=== PATIENT | male | born 1950 | race Caucasian/White ===

== ENCOUNTER 2024-06-20 10:16 | Emergency (ER) | payer MEDICARE, SELFPAY ==
[2024-06-20 10:54] VITALS: BP 158/84; PULSE 79; RESP 18; TEMP 37; O2SAT 98; BMI 20.1
[2024-06-20 13:55] LABS: Bilirubin Urine Negative (Negative); Blood Urine 2+ (Negative); Glucose Urine UA Negative (Normal); Ketones Urine Negative (Negative); Leukocyte Esterase Urine 3+ (Negative); Nitrate Urine Positive (Negative); Protein Urine 1+ (Negative); Urine Appearance Turbid (CLEAR); Urine Color Yellow (Yellow)
[2024-06-20 13:57] LABS: Add Urine Microscopic? YES; Bacteria Urine 4+ /hpf; Hyaline Casts Urine 2.46 /lpf; Squamous Epithelial Cell Urine 0-5 /hpf (0-5); WBC Urine >100 /hpf (0-5)
[2024-06-20 14:04] VITALS: BP 118/64; PULSE 94; RESP 18; O2SAT 94
[2024-06-20 14:04] LABS: Add Urine Culture? Yes
--- NOTE | 2024-06-20 14:16 | W.ED.MALEGU ---
HPI - Male Genitourinary General: Chief complaint: Urogenital-Male Stated complaint: unable to pee Time Seen by Provider: 06/20/24 11:33 History of Present Illness: This patient is a 74-year-old white male brought in by his family. Patient has not been able to void for the past 2 days. He does have a Lin catheter in place. Evidently is not working. Family states that he has been drinking plenty of water. He has been pulling on the catheter which did cause some bleeding. Related Data Home Medications Medication Instructions Recorded Confirmed albuterol sulfate 90 mcg/actuation 90 mcg inhalation DAILY 06/20/24 06/20/24 aerosol inhaler aspirin 81 mg tablet,delayed 81 mg PO DAILY 06/20/24 06/20/24 release (Neyda Low Dose Aspirin) diphenhydramine HCl 25 mg tablet 25 mg PO TID PRN sleep 06/20/24 06/20/24 (Benadryl Allergy) linaclotide 290 mcg capsule 290 mcg PO DAILY 06/20/24 06/20/24 (Linzess) olanzapine 2.5 mg tablet 2.5 mg PO DAILY 06/20/24 06/20/24 tamsulosin 0.4 mg capsule 0.4 mg PO DAILY 06/20/24 06/20/24 Previous Rx's Medication Instructions Recorded cefdinir 300 mg capsule 300 mg PO Q12H 10 days #20 caps 06/20/24 Allergies Allergy/AdvReac Type Severity Reaction Status Date / Time No Known Allergies Allergy Verified 06/20/24 10:58 Review of Systems General: Reports: 10 or more systems reviewed and unremarkable except in HPI and below : Reports: difficulty urinating Physical Exam Const: COMMON NORMALS: no acute distress, patient oriented x3 and no limitations GENERAL APPEARANCE: cooperative and comfortable HENMT: COMMON NORMALS: normocephalic, atraumatic, Normal nasal mucous membranes and turbinates present, moist oral mucous membranes and oropharynx normal HEAD & SCALP: normal to inspection, normocephalic and atraumatic FACE & SINUS: normal facial exam NOSE: Normal nasal mucous membranes and turbinates present Eye: COMMON NORMALS: Equal, round and reactive pupils present, EOMs intact bilaterally and conjunctivae normal GENERAL EYE: appearance normal, both eyes and all related structures CONJUNCTIVA: Yes conjunctivae normal PUPIL: Yes Equal, round and reactive pupils present Neck/C-Spine: COMMON NORMALS: supple and no JVD Chest: COMMONS NORMALS: normal inspection of the chest Resp: COMMON NORMALS: normal respiratory effort and clear to auscultation bilaterally AUSCULTATION: clear to auscultation bilaterally Cardio: COMMON NORMALS: no JVD, regular rate, regular rhythm, No gallops present (Cardio), No murmurs present (Cardio) and No rub (Cardio) RATE: regular rate RHYTHM: regular rhythm GI: COMMON NORMALS: Normal to inspection, nondistended, normoactive bowel sounds present, Soft to palpation and non-tender AUSCULTATION: Yes normoactive bowel sounds PALPATION: Yes Soft to palpation : COMMON NORMALS: Yes no CVA tenderness BLADDER/KIDNEY EXAM: Yes no CVA tenderness Back/Pelvis: COMMON NORMALS: no CVA tenderness and thoracic and lumbar spine normal to inspection Extremity: COMMON NORMALS: normal to inspection Neuro: COMMON NORMALS: patient oriented x3 and CN's II-XII intact bilaterally Psych: COMMON NORMALS: mental status grossly normal, Normal thought process present and cooperative THOUGHT PROCESS: Normal thought process present Skin: COMMON NORMALS: no rashes or lesions noted, turgor normal and no jaundice GENERAL SKIN EXAM: no rashes or lesions noted and turgor normal Course Vital Signs: Vital signs: Vital Signs Temperature 98.6 F 06/20/24 10:54 Pulse Rate 94 06/20/24 14:04 Respiratory Rate 18 06/20/24 14:04 Blood Pressure 118/64 06/20/24 14:04 Pulse Oximetry 94 06/20/24 14:04 Oxygen Delivery Me thod Room Air 06/20/24 14:04 MDM - Male Medical Decision Making Bladder scan revealed over 1000 cc of urine in the bladder. I did have the nurse adjust the Lin catheter. She deflated the balloon and then reposition the catheter and reinflated the balloon. It is working fine now. She had also removed a small blood clot from the tip of the catheter. Urinalysis is consistent with urinary tract infection. Patient was placed on cefdinir. He was given 1 dose of cefuroxime in the emergency department. Recommended follow-up with primary care provider after completing the antibiotics for recheck. He was discharged in stable condition. Lab Data Laboratory Results Urine Color Yellow (Yellow) 06/20/24 13:41 Urine Appearance Turbid (CLEAR) A 06/20/24 13:41 Urine pH 6.0 (5-7) 06/20/24 13:41 Ur Specific [place] 1.010 (1.005-1.030) 06/20/24 13:41 Urine Protein 1+ (Negative) A 06/20/24 13:41 Urine Glucose (UA) Negative (Normal) 06/20/24 13:41 Urine Ketones Negative (Negative) 06/20/24 13:41 Urine Blood 2+ (Negative) A 06/20/24 13:41 Urine Nitrate Positive (Negative) A 06/20/24 13:41 Urine Bilirubin Negative (Negative) 06/20/24 13:41 Urine Urobilinogen 1.0 mg/dL (Negative) 06/20/24 13:41 Ur Leukocyte Esterase 3+ (Negative) A 06/20/24 13:41 Urine RBC 6-10 /hpf (0-2) 06/20/24 13:41 Urine WBC >100 /hpf (0-5) H 06/20/24 13:41 Ur Squamous Epith Cells 0-5 /hpf (0-5) 06/20/24 13:41 Amorphous Sediment Not Reportable 06/20/24 13:41 Urine Bacteria 4+ /hpf (NONE) H 06/20/24 13:41 Hyaline Casts 2.46 /lpf 06/20/24 13:41 No radiology studies performed this visit Discharge Plan Discharge Patient Disposition: Home Clinical Impression: Acute urinary retention Urinary tract infection Qualifiers: Urinary tract infection type: acute cystitis Hematuria presence: with hematuria Qualified Code(s): N30.01 - Acute cystitis with hematuria Condition: Stable Prescriptions: New cefdinir 300 mg capsule 300 mg PO Q12H 10 Days Qty: 20 0RF No Action olanzapine 2.5 mg tablet 2.5 mg PO DAILY tamsulosin 0.4 mg capsule 0.4 mg PO DAILY albuterol sulfate 90 mcg/actuation HFA aerosol inhaler 90 mcg INHALATION DAILY Linzess 290 mcg capsule 290 mcg PO DAILY aspirin [Neyda Low Dose Aspirin] 81 mg Tablet,Delayed Release (Dr/Ec) 81 mg PO DAILY diphenhydramine HCl [Benadryl Allergy] 25 mg Tablet 25 mg PO TID PRN (Reason: sleep ) Discharge Orders: Discharge ED (Routine); Ordered 06/20/24 Ordered By: Pop Portillo Patient Instructions: Urinary Tract Infection in Men (ED) Activity Restrictions/Additional Instructions: Follow-up with primary care provider after finishing the antibiotic course for recheck. Coding Level of Care Code ED Development Consultant for [employer]
[2024-06-20] MEDS: cefUROXime 250 mg Tablet 500 MG PO (14:32)
[2024-06-20 14:48] VITALS: BP 140/107; PULSE 93; RESP 16; O2SAT 96
--- NOTE | 2024-06-20 14:50 | PC.NURSE ---
replaced pts gillis leg bag d/t the straps being broke.
== END 2024-06-20 14:46 | disposition home or self-care (01) ==
PROVIDERS: Emergency Provider Emergency Medicine
DX: N30.01 Acute cystitis with hematuria (principal); Z79.82 Long term (current) use of aspirin
CPT/HCPCS: 51798; 81001; 87077; 87086; 87186; 99283

== ENCOUNTER 2024-07-02 14:24 | Observation (INO) | payer MEDICARE, MEDICAID, SELFPAY ==
[2024-07-02] VITALS (10 sets, daily range): BP systolic 105–171; BP diastolic 60–86; PULSE 67–88; RESP 17–19; TEMP 36.7–37.1; O2SAT 96–99; BMI 21.8
--- NOTE | 2024-07-02 14:39 | PC.NURSE ---
NURSE ASSESSED PATIENT FROM WAITING ROOM. PATIENT NEURO CHECKS NORMAL. PATIENT [employer] EQUAL AND HAS ABILITY TO MOVE ALL EXTREMITIES AGAINST GRAVITY. FAMILY STATES PATIENT HAS BEEN GETTING WORSE OVER THE LAST SEVERAL DAYS, YESTERDAY BEING THE WORST, AND LKW WAS YESTERDAY, IF NOT BEFORE.
--- NOTE | 2024-07-02 15:57 | CTR_ITS ---
PROCEDURE INFORMATION: Exam: CT Head Without Contrast Exam date and time: 07/02/2024 4:32 PM Age: 74 years old Clinical indication: Dizziness and walking, difficulty; Additional info: Multiple falls, balance issues TECHNIQUE: Imaging protocol: Computed tomography of the head without contrast. Radiation optimization: All CT scans at this facility use at least one of these dose optimization techniques: automated exposure control; mA and/or kV adjustment per patient size (includes targeted exams where dose is matched to clinical indication); or iterative reconstruction. COMPARISON: No relevant prior studies available. RADIATION DOSE METRICS: Total DLP (mGy-cm): 878.75 FINDINGS: Brain: Normal. No hemorrhage. Unremarkable white matter. No mass effect or acute infarct. Cerebral ventricles: No ventriculomegaly. No midline shift. Paranasal sinuses: Visualized sinuses are unremarkable. No fluid levels. Mastoid air cells: Visualized mastoid air cells are well aerated. Bones: Unremarkable. No acute fracture. Soft tissues: Unremarkable. CT/CT head wo con* [id number] IMPRESSION: No acute intracranial abnormality.
--- NOTE | 2024-07-02 15:57 | XRR_ITS ---
PROCEDURE INFORMATION: Exam: XR Chest Exam date and time: 07/02/2024 4:37 PM Age: 74 years old Clinical indication: Shortness of breath; Additional info: Weakness TECHNIQUE: Imaging protocol: Radiologic exam of the chest. Views: 1 view. COMPARISON: No relevant prior studies available. FINDINGS: Lungs: Unremarkable. No consolidation or mass. Pleural spaces: Unremarkable. No pleural effusion. No pneumothorax. Heart/Mediastinum: Unremarkable. No cardiomegaly. Bones/joints: Unremarkable. XR/XR chest 1V portable [id number] IMPRESSION: No acute findings.
--- NOTE | 2024-07-02 15:58 | ED_ITS ---
HPI - Altered Mental Status 2 General: Chief Complaint: Altered Mental Status Stated Complaint: stroke like symptoms (dr. rucker) Time Seen by Provider: 07/02/24 15:49 History of Present Illness: 74-year-old man with suspected dementia and only other real medical problems is recently diagnosed BPH with urinary retention and now with a chronic indwelling Lin catheter for the last few weeks. Family brings him in at the direction of their primary physician to possibly be admitted to a shelter. He has been having falls. They say he will start almost running backwards and fall backwards. No known history of Parkinson's or anything like this. They say he is also started wandering. They will have to go look at neighbors homes. [place] He seems more acutely confused over the last couple of weeks. Apparently he has been admitted to [facility] twice in the last couple of months for as many as 8 or 9 days at 1 point. This was when he was diagnosed with renal failure and urinary retention. His brother is a family that is with him here today. He says the last fall he actually caught him before he went down. They are concerned that he may hurt himself or wander off. He said nighttime is when he tries to wander. Related Data Home Medications Medication Instructions Recorded Confirmed albuterol sulfate 90 mcg/actuation 90 mcg inhalation DAILY 06/20/24 07/02/24 aerosol inhaler aspirin 81 mg tablet,delayed 81 mg PO DAILY 06/20/24 07/02/24 release (Neyda Low Dose Aspirin) diphenhydramine HCl 25 mg tablet 25 mg PO TID PRN sleep 06/20/24 07/02/24 (Benadryl Allergy) linaclotide 290 mcg capsule 290 mcg PO DAILY 06/20/24 07/02/24 (Linzess) olanzapine 2.5 mg tablet 2.5 mg PO DAILY 06/20/24 07/02/24 tamsulosin 0.4 mg capsule 0.4 mg PO DAILY 06/20/24 07/02/24 levofloxacin 500 mg tablet 500 mg PO DAILY 07/02/24 07/02/24 melatonin 3 mg tablet 3 mg PO DAILY 07/02/24 07/02/24 timolol maleate 0.5 % eye drops 1 drp ophthalmic (eye) DAILY 07/02/24 07/02/24 Allergies Allergy/AdvReac Type Severity Reaction Status Date / Time No Known Allergies Allergy Verified 06/20/24 10:58 Review of Systems 2 Narrative: Constitutional symptoms: Negative except as documented in HPI. Skin symptoms: Negative except as documented in HPI. Eye symptoms: Negative except as documented in HPI. ENMT symptoms: Negative except as documented in HPI. Respiratory symptoms: Negative except as documented in HPI. Cardiovascular symptoms: Negative except as documented in HPI. Gastrointestinal symptoms: Negative except as documented in HPI. Genitourinary symptoms: Negative except as documented in HPI. Musculoskeletal symptoms: Negative except as documented in HPI. Neurologic symptoms: Negative except as documented in HPI. Psychiatric symptoms: Negative except as documented in HPI. Endocrine symptoms: Negative except as documented in HPI. Physical Exam 2 Narrative: General: Alert, no acute distress. Skin: Warm, dry. Head: Normocephalic, atraumatic. Neck: Supple, trachea midline. Eye: Extraocular movements are intact. Ears, nose, mouth and throat: mucosa moist. Cardiovascular: Regular, Normal peripheral perfusion. Respiratory: Lungs are clear to auscultation, respirations are non-labored, breath sounds are equal, Symmetrical chest wall expansion. Gastrointestinal: Soft, Nontender, Non distended Musculoskeletal: Normal ROM, no deformity. Neurological: Alert and oriented, No focal neurological deficit observed. Psychiatric: Cooperative, patient is pretty hard of hearing but does seem a little confused at times. Course 2 Vital Signs: Vital signs: Vital Signs Temperature 98.8 F 07/02/24 14:52 Pulse Rate 88 07/02/24 19:30 Respiratory Rate 18 07/02/24 15:53 Blood Pressure 159/83 07/02/24 19:30 Pulse Oximetry 99 07/02/24 18:00 Oxygen Delivery Me thod Room Air 07/02/24 18:00 MDM - Altered Mental Status Medical Decision Making Medical decision making: Differential diagnosis including but not limited to and based on the above HPI, review of systems and physical exam: In this patient with altered mental status: Stroke. Hypoglycemia. Metabolic encephalopathy. Infections such as pneumonia, urinary tract infection, Covid-19, Influenza. Electrolyte abnormalities such as hypernatremia. Renal failure / uremia. Hepatic encephalopathy. Hypoxemia. Hypercapnic respiratory failure. Psychosis. Drug or alcohol intoxication. Medication overdose. Orders placed to evaluate differential diagnosis based on the above differential, HPI and physical exam EKG: Time 1816. Rate 80. Normal sinus rhythm, No ST-T changes, no ectopy, first degree AV Block, EP Interpretation. This was reviewed and interpreted by myself the ER physician at 1820. CT head: No acute intracranial process. no intracranial hemorrhage, no evidence of infarct. no evidence of acute fracture.This was reviewed and interpreted by myself the ER physician. Chest x-ray: No acute process. No infiltrate. No pneumothorax. This was reviewed and interpreted by myself the emergency room physician. I also reviewed the radiology report. Lab Review: Laboratory results were reviewed and interpreted by myself the emergency room physician. Mild leukocytosis with a white count of 10.6 with 80% left shift. No anemia. BUN and creatinine are elevated at 29 and 1.6. I do not have any previous lab work to compare. Blood pressure is a bit soft so I have some concern that this might be acute. Also 11-20 whites in his urine. Given the worsening of his symptoms acutely maybe have some metabolic encephalopathy secondary to urinary tract infection I reviewed the patient's medical record. I have requested documentation from admission at [facility] Reexamination: Patient remained stable. No increased work of breathing. No altered mental status. No focal motor deficits. Consultation: I spoke with Dr. Yoon who agrees to admission and observation. Assessment and plan: Renal insufficiency Urinary tract infection Urinary retention Metabolic encephalopathy Dementia ?Normal saline bolus and IV Rocephin in the emergency room. Lin being changed -I discussed the patient with the hospitalist on-call who is admitting the patient. - Discussed findings and plan with patient. Answered any questions. - All laboratory values were reviewed and interpreted personally by myself, the ER physician - All imaging was reviewed and interpreted personally by myself, the ER physician. - Evaluation and treatment of this problem were appropriate in the emergency setting Lab Data 07/02/24 16:11 07/02/24 16:11 Radiology Impressions Chest X-Ray 07/02/24 15:57 IMPRESSION: No acute findings. Head CT 07/02/24 15:57 IMPRESSION: No acute intracranial abnormality. Laboratory Results WBC 10.63 10^3/uL (3.29-11.43) 07/02/24 16:11 RBC 4.24 10^6/uL (3.85-5.65) 07/02/24 16:11 Hgb 12.60 g/dL (11.27-16.99) 07/02/24 16:11 Hct 38.6 % (37-53) 07/02/24 16:11 MCV 91.0 fl (82-101) 07/02/24 16:11 MCH 29.7 pg (27-33) 07/02/24 16:11 MCHC 32.6 g/dL (30-55) 07/02/24 16:11 RDW 13.3 % (12.1-15.1) 07/02/24 16:11 Plt Count 289 10^3/cmm (157-399) 07/02/24 16:11 MPV 9.1 fL (7.4-10.4) 07/02/24 16:11 Neut % (Auto) 80.9 % 07/02/24 16:11 Lymph % (Auto) 10.9 % 07/02/24 16:11 [place] % (Auto) 7.1 % 07/02/24 16:11 Eos % (Auto) 0.1 % 07/02/24 16:11 Baso % (Auto) 0.2 % 07/02/24 16:11 Neut # (Auto) 8.61 10^3/uL (1.8-7.7) H 07/02/24 16:11 Lymph # (Auto) 1.2 10^3/uL (0.8-4.8) 07/02/24 16:11 [place] # (Auto) 0.8 10^3/uL (0.2-0.9) 07/02/24 16:11 Eos # (Auto) 0.0 10^3/uL (0.0-0.8) 07/02/24 16:11 Baso # (Auto) 0.0 10^3/uL (0.0-0.1) 07/02/24 16:11 Nucleated RBC % (auto) 0 % 07/02/24 16:11 Nucleated RBCs # 0.0 /100WBC 07/02/24 16:11 Specimen Type Arterial 07/02/24 15:58 Sample Site Radial, right 07/02/24 15:58 ABG pH 7.43 (7.35-7.45) 07/02/24 15:58 ABG pCO2 37.2 mmHg (35-45) 07/02/24 15:58 ABG pO2 88.3 mmHg (80.0-100.0) 07/02/24 15:58 ABG PO2/FiO2 Ratio 420 07/02/24 15:58 ABG HCO3 24.6 mmol/L (22-26) 07/02/24 15:58 ABG O2 Saturation 97.5 07/02/24 15:58 ABG Base Excess 0.4 mmol/L (-2.0-2.0) 07/02/24 15:58 [place] Test Pos 07/02/24 15:58 A-a O2 Gradient 1.9 mmHg (5-10) L 07/02/24 15:58 Hematocrit 37.6 % (42-52) L 07/02/24 15:58 Hgb O2 Saturation 95.6 % (95-100) 07/02/24 15:58 Carboxyhemoglobin 1.0 %THgb (0.4-20.1) 07/02/24 15:58 Methemoglobin 0.9 % (0.4-1.5) 07/02/24 15:58 Total Hemoglobin 12.3 g/dL (14-18) L 07/02/24 15:58 Sodium 132.0 mmol/L (131-143) 07/02/24 15:58 Potassium 4.2 mmol/L (3.5-5.0) 07/02/24 15:58 Glucose 113.0 mg/dL (70-115) 07/02/24 15:58 Ionized Calcium 1.2 mmol/L (1.1-1.4) 07/02/24 15:58 O2 Delivery Device Room air 07/02/24 15:58 FiO2 21.0 % 07/02/24 15:58 Food Service Director ID [place] 07/02/24 15:58 Sodium 134 mmol/L (136-145) L 07/02/24 16:11 Potassium 4.8 mmol/L (3.5-5.1) 07/02/24 16:11 Chloride 99 mmol/L (98-107) 07/02/24 16:11 Carbon Dioxide 25 mmol/L (22-29) 07/02/24 16:11 Anion Gap 14.8 (5-19) 07/02/24 16:11 BUN 29 mg/dL (8-23) H 07/02/24 16:11 Creatinine 1.6 mg/dL (0.7-1.2) H 07/02/24 16:11 GFR Calculation Not Reportable 07/02/24 16:11 Glucose 110 mg/dL (65-115) 07/02/24 16:11 Calculated Osmolality 284 mOsm/kg (285-295) L 07/02/24 16:11 Lactic Acid 1.0 mmol/L (0.5-2.2) 07/02/24 16:11 Calcium 9.4 mg/dL (8.5-10.5) 07/02/24 16:11 Total Bilirubin 0.6 mg/dL (0.15-1.2) 07/02/24 16:11 AST 29 U/L (0-40) 07/02/24 16:11 ALT 20 U/L (0-41) 07/02/24 16:11 Alkaline Phosphatase 56 U/L (40-130) 07/02/24 16:11 Troponin T Baseline 47 ng/L (0-15) H 07/02/24 16:11 Troponin T 120 Minute 44.29 ng/L (0-15) H 07/02/24 18:12 Delta Troponin T -2.71 ABS# (0-10) L 07/02/24 18:12 Total Protein 6.2 g/dL (6.6-8.7) L 07/02/24 16:11 Albumin 3.8 g/dL (3.5-5.2) 07/02/24 16:11 Globulin 2.4 g/dL (1.3-4.6) 07/02/24 16:11 Urine Color Yellow (Yellow) 07/02/24 17:48 Urine Appearance Clear (CLEAR) 07/02/24 17:48 Urine pH 5.5 (5-7) 07/02/24 17:48 Ur Specific [place] 1.016 (1.005-1.030) 07/02/24 17:48 Urine Protein Negative (Negative) 07/02/24 17:48 Urine Glucose (UA) Negative (Normal) 07/02/24 17:48 Urine Ketones Negative (Negative) 07/02/24 17:48 Urine Blood Negative (Negative) 07/02/24 17:48 Urine Nitrate Negative (Negative) 07/02/24 17:48 Urine Bilirubin Negative (Negative) 07/02/24 17:48 Urine Urobilinogen 1.0 mg/dL (Negative) 07/02/24 17:48 Ur Leukocyte Esterase 1+ (Negative) A 07/02/24 17:48 Urine RBC 0-2 /hpf (0-2) 07/02/24 17:48 Urine WBC 11-20 /hpf (0-5) H 07/02/24 17:48 Ur Squamous Epith Cells 0-5 /hpf (0-5) 07/02/24 17:48 Urine Bacteria None seen /hpf (NONE) 07/02/24 17:48 Hyaline Casts 2.05 /lpf 07/02/24 17:48 All radiology interpretation(s) finalized by discharge Discharge Plan Discharge Condition: Stable Prescriptions: No Action olanzapine 2.5 mg tablet 2.5 mg PO DAILY tamsulosin 0.4 mg capsule 0.4 mg PO DAILY albuterol sulfate 90 mcg/actuation HFA aerosol inhaler 90 mcg INHALATION DAILY Linzess 290 mcg capsule 290 mcg PO DAILY aspirin [Neyda Low Dose Aspirin] 81 mg Tablet,Delayed Release (Dr/Ec) 81 mg PO DAILY diphenhydramine HCl [Benadryl Allergy] 25 mg Tablet 25 mg PO TID PRN (Reason: sleep ) levofloxacin 500 mg tablet 500 mg PO DAILY timolol maleate 0.5 % drops 1 drp ophthalmic (eye) DAILY melatonin 3 mg Tablet 3 mg PO DAILY Patient Instructions: Altered Mental Status (ED) Coding Level of Care Code ED Director Of Product Design for [employer]
[2024-07-02 16:09] LABS: ABG PCO2 37.2 mmHg (35-45); ABG PH Result 7.43 (7.35-7.45); Alveolar-Arterial Oxygen Gradi 1.9 mmHg (5-10); Arterial Blood Gas Hematocrit 37.6 % (42-52); Base Excess ABG 0.4 mmol/L (-2.0-2.0); Blood Gas Allen Test Pos; Blood Gas Operator Identificat WALCI; Blood Gas Sample Site Radial, right; Blood Gas Sample Type Arterial; HCO3 ABG 24.6 mmol/L (22-26); HGB O2 Sat 95.6 % (95-100); Ionized Calcium Level - ABG 1.2 mmol/L (1.1-1.4); Methemoglobin 0.9 % (0.4-1.5); Oxygen Device ROOM AIR; Oxygen Saturation ABG 97.5; PO2 ABG 88.3 mmHg (80.0-100.0); PO2 FiO2 Ratio Arterial Blood 420; Potassium Level - ABG 4.2 mmol/L (3.5-5.0); Total Hemoglobin 12.3 g/dL (14-18)
[2024-07-02 16:24] LABS: Basophils % 0.2 %; Eosinophils % 0.1 %; Hematocrit 38.6 % (37-53); Lymphocytes # 1.2 10^3/uL (0.8-4.8); Lymphocytes % 10.9 %; Mean Corpuscular HGB Conc 32.6 g/dL (30-55); Mean Corpuscular Hemoglobin 29.7 pg (27-33); Mean Platelet Volume 9.1 fL (7.4-10.4); Monocytes # 0.8 10^3/uL (0.2-0.9); Monocytes % 7.1 %; Neutrophils # 8.61 10^3/uL (1.8-7.7); Neutrophils % 80.9 %; Nucleated Red Blood Cells % 0 %; Platelet Count 289 10^3/cmm (157-399); Red Blood Count 4.24 10^6/uL (3.85-5.65); Red Cell Distribution Width 13.3 % (12.1-15.1); White Blood Count 10.63 10^3/uL (3.29-11.43)
--- NOTE | 2024-07-02 16:27 | ECG_ITS ---
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 Measurements Intervals [place] Rate: 77 P: 86 [place]: 210 QRS: 54 QRSD: 142 T: 144 QT: 419 QTc: 476 Interpretive Statements SINUS RHYTHM WITH FIRST DEGREE AV BLOCK POSSIBLE LEFT ATRIAL ENLARGEMENT [-0.1mV P-WAVE IN V1/V2] INTRAVENTRICULAR CONDUCTION DELAY [130+ ms QRS DURATION] No previous ECG available for comparison Electronically Signed On 07-03-2024 10:21:49 AUDIO PRODUCTION MANAGER by Trevor Hall M.D. [email or web address]
[2024-07-02 16:43] LABS: Troponin(5th) Baseline 47 ng/L (0-15)
[2024-07-02 16:44] LABS: Alanine Aminotransferase 20 U/L (0-41); Albumin Level 3.8 g/dL (3.5-5.2); Alkaline Phosphatase 56 U/L (40-130); Anion Gap 14.8 (5-19); Aspartate Amino Transferase 29 U/L (0-40); Blood Urea Nitrogen 29 mg/dL (8-23); Calcium 9.4 mg/dL (8.5-10.5); Carbon Dioxide 25 mmol/L (22-29); Chloride 99 mmol/L (98-107); Creatinine Clr Calc Pharmacy 44.5358; Globulin 2.4 g/dL (1.3-4.6); Glucose 110 mg/dL (65-115); Osmolality Calculated 284 mOsm/kg (285-295); Potassium 4.8 mmol/L (3.5-5.1); Sodium 134 mmol/L (136-145); Total Bilirubin 0.6 mg/dL (0.15-1.2); Total Protein 6.2 g/dL (6.6-8.7)
--- NOTE | 2024-07-02 17:57 | ECG_ITS ---
[facility]: 2024-07[facility]02 Pat Name: Monty Hayden Department: Room: Gender: Male Director Revenue: : 1950 Requested By: Valentina Coker Order Number: [id number] Elliott MD: Trevor Hall M.D. Measurements Intervals [place] Rate: 80 P: 79 [place]: 211 QRS: 58 QRSD: 142 T: 184 QT: 428 QTc: 495 Interpretive Statements SINUS RHYTHM WITH FIRST DEGREE AV BLOCK POSSIBLE RIGHT ATRIAL ENLARGEMENT [0.25mV P-WAVE] POSSIBLE LEFT ATRIAL ENLARGEMENT [-0.1mV P-WAVE IN V1/V2] INTRAVENTRICULAR CONDUCTION DELAY [130+ ms QRS DURATION] Compared to ECG 07/02/2024 16:27:05 No significant changes Electronically Signed On 07-03-2024 10:33:37 STOCK SHAPER by Trevor Hall M.D. [email or web address]
[2024-07-02 18:08] LABS: Bilirubin Urine Negative (Negative); Blood Urine Negative (Negative); Glucose Urine UA Negative (Normal); Ketones Urine Negative (Negative); Leukocyte Esterase Urine 1+ (Negative); Nitrate Urine Negative (Negative); Protein Urine Negative (Negative); Specific Gravity, Urine 1.016 (1.005-1.030); Urine Appearance Clear (CLEAR); Urine Color Yellow (Yellow); pH Urine 5.5 (5-7)
[2024-07-02 18:13] LABS: Bacteria Urine None Seen /hpf; Hyaline Casts Urine 2.05 /lpf; RBC Urine 0-2 /hpf (0-2); Squamous Epithelial Cell Urine 0-5 /hpf (0-5)
[2024-07-02 18:37] LABS: Troponin 5 2HR 44.29 ng/L (0-15); Troponin 5 2HR Delta -2.71 ABS# (0-10)
--- NOTE | 2024-07-02 19:14 | P.HP_ITS ---
Providers/Chief Complaint 2 Chief Complaint: stroke like symptoms (dr. rucker) History of Present Illness Monty Hayden is a 74 year old male with a past medical history significant for small bowel cancer s/p resection, suspect dementia, urinary retention, and eye disease who presents the emergency department accompanied with family with recurrent falls and inability to care for self. Upon assessment, patient slightly lethargic. He arouses to stimulation but does not offer any pertinent history. His brother is bedside and provides a history. Brother states patient was just recently living alone. He had a hospitalization at [facility] several weeks ago for which she says was for problems with sodium and potassium. He states he was hospitalized for 7 days. He was found to have urinary retention for which she was discharged with a Lin catheter. After discharge, patient stayed with his brother at his home. Family notes that patient's been suffering from progressively worsening confusion. They note that the symptoms are much worse at night. They states that he started to wander and they are having difficulty controlling them. They report he gets agitated with the Lin catheter and intermittently pulls on it which has produced transient hematuria at times. They suspect he has underlying dementia. They report a positive family history of dementia, Alzheimer's type. Brother is not sure of most of his medical issues but states he [facility] and they should have all his medical records. We discussed his resuscitation status, they note that he is DNR. Review of Systems 2 Narrative: A complete review of systems was obtained and is negative except as stated in HPI. Medications/Allergies Home Medications Medication Instructions Recorded Confirmed Last Taken Type albuterol sulfate 90 mcg/actuation 90 mcg inhalation DAILY 06/20/24 07/02/24 Unknown History aerosol inhaler aspirin 81 mg tablet,delayed 81 mg PO DAILY 06/20/24 07/02/24 07/01/24 History release (Neyda Low Dose Aspirin) diphenhydramine HCl 25 mg tablet 25 mg PO TID PRN sleep 06/20/24 07/02/24 07/01/24 History (Benadryl Allergy) linaclotide 290 mcg capsule 290 mcg PO DAILY 06/20/24 07/02/24 07/01/24 History (Linzess) olanzapine 2.5 mg tablet 2.5 mg PO DAILY 06/20/24 07/02/24 06/30/24 History tamsulosin 0.4 mg capsule 0.4 mg PO DAILY 06/20/24 07/02/24 07/02/24 History levofloxacin 500 mg tablet 500 mg PO DAILY 07/02/24 07/02/24 07/01/24 History melatonin 3 mg tablet 3 mg PO DAILY 07/02/24 07/02/24 07/01/24 History timolol maleate 0.5 % eye drops 1 drp ophthalmic (eye) DAILY 07/02/24 07/02/24 07/01/24 History Allergies Allergy/AdvReac Type Severity Reaction Status Date / Time No Known Allergies Allergy Verified 06/20/24 10:58 PFSH Acute 2 PFSH: Medical History Small bowel cancer Surgical History History of intestinal surgery Family History Sister Alzheimer's dementia Social History Smoking and tobacco/nicotine status: never used tobacco/nicotine Alcohol intake: never Substance/Drug Use: never Vitals/I&O/Wt Last Vital Signs Temp 98.8 F 07/02/24 14:52 Pulse 81 07/02/24 18:00 Resp 18 07/02/24 15:53 BP 171/86 07/02/24 18:00 Pulse Ox 99 07/02/24 18:00 O2 Del Method Room Air 07/02/24 18:00 Weight last 48 hrs Weight 77.111 kg Physical Exam 2 Narrative: General: Patient is lethargic. He will arouse to name. Not oriented to situation or place. Frail-appearing. Head: Atraumatic. EOM intact. Neck: No JVD. Cardiovascular: RRR. No gallops. Lungs: Clear to auscultation, no use of accessory muscles, no crackles or wheezes. Skin: No jaundice. No rashes. Abdomen: Normal bowel sounds, abdomen soft and nontender. Genito Urinary: Lin catheter with garrett urine. Extremities: No cyanosis or clubbing. Musculoskeletal: No swollen or erythematous joints. Neurological: There is movement of all 4 extremities. Full neurological exam was not conducted due to mentation. He seems to guard his left upper extremity on exam. He seems to have diffusely reduced range of motion in his left upper extremity. Data 07/02/24 16:11 07/02/24 16:11 Micro: Microbiology 07/02/24 16:15 Blood Culture - Preliminary Blood SPECIMEN COLLECTED 07/02/24 16:11 Blood Culture - Preliminary Blood SPECIMEN COLLECTED A&P Assessment and plan (1) Failure to thrive: Patient presents with failure to thrive in adult Probably will need placement PT/OT evaluation CM consult Medical history is still limited, request outside records from [facility] (2) Fall: Head CT negative for acute findings Fall precautions Neuroexam is limited due to mental status He may have deficits in the left upper extremity, will proceed with cervical neck CT and plain films of left upper extremity given he cannot provide pertinent feedback (3) Rigidity: He is noted to be quite rigid on exam, question underlying possible parkinsonian His movements can be further evaluated when he is more awake over the weekend Depending on clinical course and assessment, he may benefit from a neurology evaluation (4) UTI (urinary tract infection): Ux (06/20) w/ Enterobacter Urinalysis has improved Rotate to IV levofloxacin 500 mg for now (5) Acute urinary retention: Continue Lin catheter Continue Flomax (6) Renal insufficiency: Unknown renal baseline S/P 1 L IVF in ED Repeat labs in AM Plan DVT ppx: Heparin Attestations 2 Medical Necessity Statement*: Patient presents with diffuse weakness and recurrent falls, found to have failure to thrive in adult with expected hospitalization not to cross two midnights for supportive care, antibiotics, repeat labs, and therapy evaluation. Coding Level of Care Code Acute Code for Chg Fwd Diagnoses Failure to thrive Fall W19.XXXA Rigidity R29.898 UTI (urinary tract infection) N39.0 Acute urinary retention R33.8 Renal insufficiency N28.9
[2024-07-02] MEDS: cefTRIAXone 1,000 mg SDV 1000 MG IVP (19:28)
[2024-07-02] MEDS: sodium chloride 0.9% 1,000 ML 999 ML IV (19:29)
[2024-07-02] MEDS: levofloxacin-dextrose 5 % 750 MG/150 ML PREMIX 100 MG IV (21:23)
[2024-07-02] MEDS: heparin 5,000 unit/mL INJ 1 mL 5000 UNIT SUBCUT (21:24)
--- NOTE | 2024-07-02 21:57 | ECG_ITS ---
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 Measurements Intervals Dawson Rate: 76 P: 84 [place]: 208 QRS: 63 QRSD: 142 T: 231 QT: 426 QTc: 480 Interpretive Statements SINUS RHYTHM LEFT BUNDLE BRANCH BLOCK [120+ ms QRS DURATION, 80+ ms Q/S IN V1/V2, 85+ ms R IN I/aVL/V5/V6] Compared to ECG 07/02/2024 18:17:20 Left bundle-branch block now present First degree AV block no longer present Intraventricular conduction delay no longer present Electronically Signed On 07-03-2024 10:32:20 BRAND MGR by Trevor Hall M.D. [email or web address]
[2024-07-02 22:01] LABS: Thyroid Stimulating Hormone 2.03 uIU/mL (0.27-4.20); Vitamin B12 581 pg/mL (232-1245)
--- NOTE | 2024-07-02 22:03 | CTR_ITS ---
PROCEDURE INFORMATION: Exam: CT Cervical Spine With Contrast Exam date and time: 07/02/2024 11:51 PM Age: 74 years old Clinical indication: Patient HX: Neck pain; Lt upper ext pain/limited rom after multiple falls TECHNIQUE: Imaging protocol: Computed tomography of the cervical spine with contrast. Radiation optimization: All CT scans at this facility use at least one of these dose optimization techniques: automated exposure control; mA and/or kV adjustment per patient size (includes targeted exams where dose is matched to clinical indication); or iterative reconstruction. Contrast material: [id number]; Contrast volume: 80 ml; Contrast route: INTRAVENOUS (IV); COMPARISON: CT head wo con* [id number] 07/02/2024 4:32 PM RADIATION DOSE METRICS: Total DLP (mGy-cm): 152.57 FINDINGS: Bones: No acute fracture. Normal alignment. No significant disc bulge or herniation. No severe spinal canal stenosis. No significant neural foraminal narrowing. Lungs: Lung apices are normal. Soft tissues: Unremarkable. CT/CT cervical spine w con [id number] IMPRESSION: No acute fracture or traumatic malalignment.
--- NOTE | 2024-07-02 22:03 | XRR_ITS ---
PROCEDURE INFORMATION: Exam: XR Left Humerus Exam date and time: 07/02/2024 11:49 PM Age: 74 years old Clinical indication: Upper arm; Left; Patient HX: Lt upper ext pain/limited rom after multiple falls; Additional info: Limited rom, status post fall TECHNIQUE: Imaging protocol: Radiologic exam of the left humerus. Views: 2 or more views. COMPARISON: CR XR shoulder LT min 2V* [id number] 07/02/2024 11:49 PM FINDINGS: Bones/joints: Normal. Soft tissues: Normal. XR/[place] [id number] IMPRESSION: No acute findings.
--- NOTE | 2024-07-02 22:03 | XRR_ITS ---
PROCEDURE INFORMATION: Exam: XR Left Forearm Exam date and time: 07/02/2024 11:49 PM Age: 74 years old Clinical indication: Lower or forearm; Left; Patient HX: Lt upper ext pain/limited rom after multiple falls; Additional info: Limited rom, status post fall TECHNIQUE: Imaging protocol: Radiologic exam of the left forearm. Views: 2 views. COMPARISON: No relevant prior studies available. FINDINGS: Bones/joints: No acute fracture. No dislocation. Soft tissues: Normal. XR/XR forearm LT 2V [id number] IMPRESSION: No acute findings.
--- NOTE | 2024-07-02 22:03 | XRR_ITS ---
PROCEDURE INFORMATION: Exam: XR Left Shoulder Exam date and time: 07/02/2024 11:49 PM Age: 74 years old Clinical indication: Shoulder; Left; Patient HX: Lt upper ext pain/limited rom after multiple falls; Additional info: Limited rom, status post fall TECHNIQUE: Imaging protocol: Radiologic exam of the left shoulder. Views: 2 or more views. COMPARISON: [place] [id number] 07/02/2024 11:49 PM FINDINGS: Bones/joints: Normal. Soft tissues: Normal. XR/XR shoulder LT min 2V* [id number] IMPRESSION: No acute findings.
[2024-07-02] MEDS: iohexol 350 mg/mL 500 mL Btl (per mL) IV (23:52)
[2024-07-03] VITALS (7 sets, daily range): BP systolic 121–181; BP diastolic 69–78; PULSE 57–77; RESP 14–18; TEMP 36.4–36.7; O2SAT 94–98
[2024-07-03 05:43] LABS: Blood Urea Nitrogen 24 mg/dL (8-23); Calcium 8.4 mg/dL (8.5-10.5); Carbon Dioxide 19 mmol/L (22-29); Chloride 102 mmol/L (98-107); Creatinine Clr Calc Pharmacy 45.7913; Glucose 100 mg/dL (65-115); Osmolality Calculated 284 mOsm/kg (285-295); Sodium 135 mmol/L (136-145)
[2024-07-03 05:50] LABS: Anion Gap 19.1 (5-19); Potassium 5.1 mmol/L (3.5-5.1)
[2024-07-03] MEDS: tamsulosin 0.4 mg Capsule PO (08:04)
[2024-07-03] MEDS: aspirin 81 mg EC Tablet PO (08:04)
[2024-07-03] MEDS: sodium chloride 0.9% 1,000 ML 60 ML IV (08:04)
[2024-07-03] MEDS: heparin 5,000 unit/mL INJ 1 mL 5000 UNIT SUBCUT ×2 (08:04→20:45)
[2024-07-03] MEDS: OLANZapine 5 mg TABLET 2.5 MG PO (08:04)
[2024-07-03] MEDS: timolol 0.5% Op Soln 5 mL Btl 1 DROP EYE-BOTH (08:09)
--- NOTE | 2024-07-03 12:06 | PC.OT ---
Patient was attempted to be seen for OT eval twice, once at 10:50 and again at 11:50. Patient would not wake up for this therapist. Nurse reported that patient was very tired and did not sleep last night. She believes that breakfast and PT really exhausted him this morning.
--- NOTE | 2024-07-03 13:30 | P.PN_ITS ---
Subjective 2 Subjective: No acute event noted so far. Seen him at bedside this morning, he was calm but complained of weakness Medications: Reviewed: Yes Vitals/I&O/Wt Last Vital Signs Temp 97.6 F 07/03/24 12:00 Pulse 64 07/03/24 12:00 Resp 17 07/03/24 12:00 BP 127/72 07/03/24 12:00 Pulse Ox 95 07/03/24 12:00 O2 Del Method Room Air 07/03/24 12:00 07/02/24 07/03/24 07/03/24 22:59 06:59 14:59 Intake Total 1150 / 1150 960 / 960 Output Total 850 / 850 850 / 850 Balance 1150 / 1150 -850 / 300 110 / 110 Weight last 48 hrs Weight 72.257 kg Weight 69.882 kg Weight 77.111 kg Physical Exam 2 Narrative: General: Patient is lethargic. He will arouse to name. Not oriented to situation or place. Frail-appearing. Head: Atraumatic. EOM intact. Neck: No JVD. Cardiovascular: RRR. No gallops. Lungs: Clear to auscultation, no use of accessory muscles, no crackles or wheezes. Skin: No jaundice. No rashes. Abdomen: Normal bowel sounds, abdomen soft and nontender. Genito Urinary: Lin catheter with garrett urine. Extremities: No cyanosis or clubbing. Musculoskeletal: No swollen or erythematous joints. Neurological: There is movement of all 4 extremities. Full neurological exam was not conducted due to mentation. He seems to guard his left upper extremity on exam. He seems to have diffusely reduced range of motion in his left upper extremity. Urinary Catheter Management: Lin: Cath Placed During This Visit: yes Urinary Catheter Date of Insertion: 07/02/24 Urinary Catheter Time of Insertion: 19:50 Data 07/02/24 16:11 07/03/24 04:22 Micro: Microbiology 07/02/24 16:15 Blood Culture - Preliminary Blood SPECIMEN COLLECTED 07/02/24 16:11 Blood Culture - Preliminary Blood SPECIMEN COLLECTED A&P Assessment and plan (1) Failure to thrive: Patient presents with failure to thrive in adult Probably will need placement PT/OT evaluation CM consult Medical history is still limited, request outside records from [facility] (2) Fall: Head CT negative for acute findings Fall precautions Neuroexam is limited due to mental status He may have deficits in the left upper extremity, will proceed with cervical neck CT and plain films of left upper extremity given he cannot provide pertinent feedback (3) Rigidity: He is noted to be quite rigid on exam, question underlying possible parkinsonian His movements can be further evaluated when he is more awake over the weekend Depending on clinical course and assessment, he may benefit from a neurology evaluation (4) UTI (urinary tract infection): Ux (06/20) w/ Enterobacter Urinalysis has improved Rotate to IV levofloxacin 500 mg for now (5) Acute urinary retention: Continue Lin catheter Continue Flomax (6) Renal insufficiency: Unknown renal baseline S/P 1 L IVF in ED Repeat labs in AM Plan DVT ppx: Heparin 07/03/24 Continue to monitor and continue current management. Need to follow-up case management on Friday for discharge planning Attestations 2 Medical Necessity Statement*: Patient presents with diffuse weakness and recurrent falls, found to have failure to thrive in adult with expected hospitalization not to cross two midnights for supportive care, antibiotics, repeat labs, and therapy evaluation. Time Spent in Patient Care: 15 minutes Coding Level of Care Code Acute Code for Chg Fwd Diagnoses Failure to thrive Fall W19.XXXA Rigidity R29.898 UTI (urinary tract infection) N39.0 Acute urinary retention R33.8 Renal insufficiency N28.9 Time Spent (min) 15
[2024-07-03] MEDS: acetaminophen 325 mg Tablet 650 MG PO (15:20)
[2024-07-04] MEDS: sodium chloride 0.9% 1,000 ML 60 ML IV ×2 (00:32→17:20)
[2024-07-04 04:00] VITALS: BP 149/75; PULSE 56; RESP 17; TEMP 36.4; O2SAT 97
[2024-07-04 04:30] LABS: Anion Gap 12.4 (5-19); Blood Urea Nitrogen 21 mg/dL (8-23); Calcium 8.2 mg/dL (8.5-10.5); Carbon Dioxide 24 mmol/L (22-29); Chloride 107 mmol/L (98-107); Creatinine Clr Calc Pharmacy 46.3543; Glucose 97 mg/dL (65-115); Osmolality Calculated 291 mOsm/kg (285-295); Potassium 4.4 mmol/L (3.5-5.1); Sodium 139 mmol/L (136-145)
[2024-07-04 07:08] VITALS: BP 162/87; PULSE 52; RESP 15; TEMP 36.2; O2SAT 96
[2024-07-04] MEDS: OLANZapine 5 mg TABLET 2.5 MG PO (08:21)
[2024-07-04] MEDS: heparin 5,000 unit/mL INJ 1 mL 5000 UNIT SUBCUT ×2 (08:22→19:25)
[2024-07-04] MEDS: tamsulosin 0.4 mg Capsule PO (08:22)
[2024-07-04] MEDS: timolol 0.5% Op Soln 5 mL Btl 1 DROP EYE-BOTH (08:22)
[2024-07-04] MEDS: aspirin 81 mg EC Tablet PO (08:22)
--- NOTE | 2024-07-04 10:39 | P.PN_ITS ---
Subjective 2 Subjective: No acute overnight events noted. Medications: Reviewed: Yes Vitals/I&O/Wt Last Vital Signs Temp 97.2 F L 07/04/24 07:08 Pulse 52 L 07/04/24 07:08 Resp 15 07/04/24 07:08 BP 162/87 07/04/24 07:08 Pulse Ox 96 07/04/24 07:08 O2 Del Method Room Air 07/04/24 07:08 07/03/24 07/04/24 07/04/24 22:59 06:59 14:59 Intake Total 480 / 1440 988 / 2428 350 / 350 Output Total 1950 / 2800 850 / 3650 Balance -1470 / -1360 138 / -1222 350 / 350 Weight last 48 hrs Weight 71.781 kg Weight 72.257 kg Weight 69.882 kg Weight 77.111 kg Physical Exam 2 Narrative: General: Patient is lethargic. He will arouse to name. Not oriented to situation or place. Frail-appearing. Head: Atraumatic. EOM intact. Neck: No JVD. Cardiovascular: RRR. No gallops. Lungs: Clear to auscultation, no use of accessory muscles, no crackles or wheezes. Skin: No jaundice. No rashes. Abdomen: Normal bowel sounds, abdomen soft and nontender. Genito Urinary: Lin catheter with garrett urine. Extremities: No cyanosis or clubbing. Musculoskeletal: No swollen or erythematous joints. Neurological: There is movement of all 4 extremities. Full neurological exam was not conducted due to mentation. He seems to guard his left upper extremity on exam. He seems to have diffusely reduced range of motion in his left upper extremity. Urinary Catheter Management: Lin: Cath Placed During This Visit: yes Urinary Catheter Date of Insertion: 07/02/24 Urinary Catheter Time of Insertion: 19:50 Data 07/02/24 16:11 07/04/24 03:15 Micro: Microbiology 07/02/24 16:15 Blood Culture - Preliminary Blood NEGATIVE TO DATE 07/02/24 16:11 Blood Culture - Preliminary Blood NEGATIVE TO DATE A&P Assessment and plan (1) Failure to thrive: Patient presents with failure to thrive in adult Probably will need placement PT/OT evaluation CM consult Medical history is still limited, request outside records from [facility] (2) Fall: Head CT negative for acute findings Fall precautions Neuroexam is limited due to mental status He may have deficits in the left upper extremity, will proceed with cervical neck CT and plain films of left upper extremity given he cannot provide pertinent feedback (3) Rigidity: He is noted to be quite rigid on exam, question underlying possible parkinsonian His movements can be further evaluated when he is more awake over the weekend Depending on clinical course and assessment, he may benefit from a neurology evaluation (4) UTI (urinary tract infection): Ux (06/20) w/ Enterobacter Urinalysis has improved Rotate to IV levofloxacin 500 mg for now (5) Acute urinary retention: Continue Lin catheter Continue Flomax (6) Renal insufficiency: Unknown renal baseline S/P 1 L IVF in ED Repeat labs in AM Plan DVT ppx: Heparin 07/03/24 Continue to monitor and continue current management. Need to follow-up case management on Friday for discharge planning 07/04/24 He is hemodynamically stable. Continue current management. Awaiting for discharge planning Attestations 2 Medical Necessity Statement*: Patient presents with diffuse weakness and recurrent falls, found to have failure to thrive in adult with expected hospitalization not to cross two midnights for supportive care, antibiotics, repeat labs, and therapy evaluation. Time Spent in Patient Care: 15 minutes Coding Level of Care Code Acute Code for Chg Fwd Diagnoses Failure to thrive Fall W19.XXXA Rigidity R29.898 UTI (urinary tract infection) N39.0 Acute urinary retention R33.8 Renal insufficiency N28.9 Time Spent (min) 15
[2024-07-04 11:49] VITALS: BP 119/53; PULSE 68; RESP 16; TEMP 36.4; O2SAT 97
[2024-07-04 16:00] VITALS: BP 137/78; PULSE 63; RESP 15; TEMP 36.6; O2SAT 96
[2024-07-04] MEDS: levofloxacin-dextrose 5 % 750 MG/150 ML PREMIX 100 MG IV (19:26)
[2024-07-04 19:29] VITALS: BP 124/68; PULSE 69; TEMP 36.8; O2SAT 94
[2024-07-04 23:43] VITALS: BP 139/72; PULSE 62; TEMP 36.8; O2SAT 97
[2024-07-05 03:39] VITALS: BP 158/63; PULSE 64; TEMP 36.7; O2SAT 95
[2024-07-05 06:46] VITALS: BP 166/90; PULSE 72; RESP 20; TEMP 36.5; O2SAT 97
[2024-07-05] MEDS: timolol 0.5% Op Soln 5 mL Btl 1 DROP EYE-BOTH (09:11)
[2024-07-05] MEDS: tamsulosin 0.4 mg Capsule PO (09:12)
[2024-07-05] MEDS: heparin 5,000 unit/mL INJ 1 mL 5000 UNIT SUBCUT ×2 (09:12→22:37)
[2024-07-05] MEDS: OLANZapine 5 mg TABLET 2.5 MG PO (09:12)
[2024-07-05] MEDS: aspirin 81 mg EC Tablet PO (09:12)
[2024-07-05 11:24] VITALS: BP 147/68; PULSE 65; RESP 18; TEMP 36.5; O2SAT 96
--- NOTE | 2024-07-05 12:47 | PC.NURSE ---
Pt fluids delayed d/t no inventory. Clerk Of Scales aware. Store room called multiple times.
--- NOTE | 2024-07-05 13:41 | PC.NURSE ---
Monty's eldest sister comes into room with her son. She requests information; however, she is not on the PHI. Monty is unable to give consent for her to have information d/t AMS/confusion. This RN educates her multiple times on protocol. This RN encourages sister to call [employer] and receive permission for information. tells this RN that I need to go back to school and learn something because she is the eldest sister and automatically gets rights. Monty's sitter, Tonja TURNER, verbalizes that the eldest sister was yelling and making Monty anxious after this RN leaves the room. Monty is comfortable in bed at this time, but does verbalize he worries about his family forgetting about him.
--- NOTE | 2024-07-05 14:01 | P.PN_ITS ---
Subjective 2 Subjective: No acute overnight events noted Medications: Reviewed: Yes Vitals/I&O/Wt Last Vital Signs Temp 97.7 F 07/05/24 11:24 Pulse 65 07/05/24 11:24 Resp 18 07/05/24 11:24 BP 147/68 07/05/24 11:24 Pulse Ox 96 07/05/24 11:24 O2 Del Method Room Air 07/05/24 11:24 07/04/24 07/05/24 07/05/24 22:59 06:59 14:59 Intake Total 1425 / 2095 1840 / 1840 Output Total 1250 / 2050 1150 / 3200 1400 / 1400 Balance 175 / 45 -1150 / -1105 440 / 440 Weight last 48 hrs Weight 71.35 kg Weight 71.781 kg Physical Exam 2 Narrative: General: Patient is lethargic. He will arouse to name. Not oriented to situation or place. Frail-appearing. Head: Atraumatic. EOM intact. Neck: No JVD. Cardiovascular: RRR. No gallops. Lungs: Clear to auscultation, no use of accessory muscles, no crackles or wheezes. Skin: No jaundice. No rashes. Abdomen: Normal bowel sounds, abdomen soft and nontender. Genito Urinary: Lin catheter with garrett urine. Extremities: No cyanosis or clubbing. Musculoskeletal: No swollen or erythematous joints. Neurological: There is movement of all 4 extremities. Full neurological exam was not conducted due to mentation. He seems to guard his left upper extremity on exam. He seems to have diffusely reduced range of motion in his left upper extremity. Urinary Catheter Management: Lin: Cath Placed During This Visit: yes Reason for Continuing Indwelling Catheter: Acute Urinary Retention or Obstruction Urinary Catheter Date of Insertion: 07/02/24 Urinary Catheter Time of Insertion: 19:50 Data 07/02/24 16:11 07/04/24 03:15 A&P Assessment and plan (1) Failure to thrive: Patient presents with failure to thrive in adult Probably will need placement PT/OT evaluation CM consult Medical history is still limited, request outside records from [facility] (2) Fall: Head CT negative for acute findings Fall precautions Neuroexam is limited due to mental status He may have deficits in the left upper extremity, will proceed with cervical neck CT and plain films of left upper extremity given he cannot provide pertinent feedback (3) Rigidity: He is noted to be quite rigid on exam, question underlying possible parkinsonian His movements can be further evaluated when he is more awake over the weekend Depending on clinical course and assessment, he may benefit from a neurology evaluation (4) UTI (urinary tract infection): Ux (06/20) w/ Enterobacter Urinalysis has improved Rotate to IV levofloxacin 500 mg for now (5) Acute urinary retention: Continue Lin catheter Continue Flomax (6) Renal insufficiency: Unknown renal baseline S/P 1 L IVF in ED Repeat labs in AM Plan DVT ppx: Heparin 07/03/24 Continue to monitor and continue current management. Need to follow-up case management on Friday for discharge planning 07/04/24 He is hemodynamically stable. Continue current management. Awaiting for discharge planning 07/05/24 He is medically stable. Blood cultures are negative so far. On IV Levaquin for UTI. Awaiting for discharge planning Attestations 2 Medical Necessity Statement*: Awaiting for case management for discharge planning Time Spent in Patient Care: 10-minute Coding Level of Care Code Acute Code for Chg Fwd Diagnoses Failure to thrive Fall W19.XXXA Rigidity R29.898 UTI (urinary tract infection) N39.0 Acute urinary retention R33.8 Renal insufficiency N28.9 Time Spent (min) 10
[2024-07-05] MEDS: LORazepam 2 mg/mL INJ 1 mL 0.5 MG IM (14:53)
--- NOTE | 2024-07-05 15:11 | PC.NURSE ---
Pt agitation increases since eldest sister leaves. Pt throws walker, pushes staff, etc. Dr. Wells made aware. Ativan IM given per orders. After administration pt continues to wander, threaten other pts, and push staff. Dr. Wells made aware. New order for Haldol given.
[2024-07-05] MEDS: haloperidol inj 5 mg/mL INJ 1 mL 1 MG IM (15:24)
[2024-07-05] MEDS: diphenhydrAMINE 50 mg/mL SDV 1mL 25 MG IM (17:15)
[2024-07-05] MEDS: sodium chloride 0.9% 1,000 ML 60 ML IV (18:12)
--- NOTE | 2024-07-05 18:29 | PC.NURSE ---
Dr. Wells assesses pt agitation and gives order for IM Benadryl. After administration, pt eats and rests quietly in bed. Fluids restarted per orders. Pt tolerates well.
[2024-07-05 20:00] VITALS: BP 158/69; PULSE 71; RESP 18; TEMP 36.7; O2SAT 98
[2024-07-06] VITALS (46 sets, daily range): BP systolic 95–157; BP diastolic 56–100; PULSE 60–137; RESP 6–25; TEMP 36.4–36.7; O2SAT 93–99
[2024-07-06 06:22] LABS: Blood Urea Nitrogen 18 mg/dL (8-23); Calcium 8.5 mg/dL (8.5-10.5); Carbon Dioxide 24 mmol/L (22-29); Chloride 106 mmol/L (98-107); Creatinine Clr Calc Pharmacy 49.4651; Glucose 84 mg/dL (65-115); Osmolality Calculated 285 mOsm/kg (285-295); Sodium 137 mmol/L (136-145)
[2024-07-06 06:37] LABS: Anion Gap 11.5 (5-19); Potassium 4.5 mmol/L (3.5-5.1)
[2024-07-06 07:06] LABS: Basophils % 0.6 %; Eosinophils # 0.1 10^3/uL (0.0-0.8); Eosinophils % 2.1 %; Hematocrit 34.7 % (37-53); Lymphocytes # 1.3 10^3/uL (0.8-4.8); Mean Corpuscular HGB Conc 32.9 g/dL (30-55); Mean Corpuscular Hemoglobin 29.6 pg (27-33); Mean Corpuscular Volume 90.1 fl (82-101); Mean Platelet Volume 9.6 fL (7.4-10.4); Monocytes # 0.5 10^3/uL (0.2-0.9); Monocytes % 7.6 %; Neutrophils # 4.33 10^3/uL (1.8-7.7); Neutrophils % 68.4 %; Nucleated Red Blood Cells % 0 %; Platelet Count 254 10^3/cmm (157-399); Red Blood Count 3.85 10^6/uL (3.85-5.65); Red Cell Distribution Width 13.7 % (12.1-15.1); White Blood Count 6.33 10^3/uL (3.29-11.43)
[2024-07-06] MEDS: tamsulosin 0.4 mg Capsule PO (08:49)
[2024-07-06] MEDS: aspirin 81 mg EC Tablet PO (08:49)
[2024-07-06] MEDS: heparin 5,000 unit/mL INJ 1 mL 5000 UNIT SUBCUT ×2 (08:49→21:22)
[2024-07-06] MEDS: OLANZapine 5 mg TABLET 2.5 MG PO ×2 (08:50→16:54)
[2024-07-06] MEDS: timolol 0.5% Op Soln 5 mL Btl 1 DROP EYE-BOTH (08:53)
[2024-07-06] MEDS: sodium chloride 0.9% 1,000 ML 60 ML IV (12:37)
--- NOTE | 2024-07-06 14:05 | P.PN_ITS ---
Subjective 2 Subjective: No acute overnight events noted. Patient was found to be agitated yesterday afternoon received IM Haldol, IV Ativan and Benadryl. Seen him at bedside this morning, seems calm and able to transfer from bed to commode. Medications: Reviewed: Yes Vitals/I&O/Wt Last Vital Signs Temp 97.5 F L 07/06/24 11:44 Pulse 67 07/06/24 11:44 Resp 16 07/06/24 11:44 BP 105/71 07/06/24 11:44 Pulse Ox 95 07/06/24 11:44 O2 Del Method Room Air 07/06/24 11:44 07/05/24 07/06/24 07/06/24 22:59 06:59 14:59 Intake Total 480 / 2320 1240 / 1240 Output Total 1750 / 3150 1000 / 4150 Balance -1270 / -830 -1000 / -1830 1240 / 1240 Weight last 48 hrs Weight 71.469 kg Weight 71.35 kg Physical Exam 2 Narrative: General: Patient is lethargic. He will arouse to name. Not oriented to situation or place. Frail-appearing. Head: Atraumatic. EOM intact. Neck: No JVD. Cardiovascular: RRR. No gallops. Lungs: Clear to auscultation, no use of accessory muscles, no crackles or wheezes. Skin: No jaundice. No rashes. Abdomen: Normal bowel sounds, abdomen soft and nontender. Genito Urinary: Lin catheter with garrett urine. Extremities: No cyanosis or clubbing. Musculoskeletal: No swollen or erythematous joints. Neurological: There is movement of all 4 extremities. Urinary Catheter Management: Lin: Cath Placed During This Visit: yes Reason for Continuing Indwelling Catheter: Acute Urinary Retention or Obstruction Urinary Catheter Date of Insertion: 07/02/24 Urinary Catheter Time of Insertion: 19:50 Data 07/06/24 06:38 07/06/24 04:36 A&P Assessment and plan (1) Failure to thrive: Patient presents with failure to thrive in adult Probably will need placement PT/OT evaluation CM consult Medical history is still limited, request outside records from [facility] (2) Fall: Head CT negative for acute findings Fall precautions Neuroexam is limited due to mental status He may have deficits in the left upper extremity, will proceed with cervical neck CT and plain films of left upper extremity given he cannot provide pertinent feedback (3) Rigidity: He is noted to be quite rigid on exam, question underlying possible parkinsonian His movements can be further evaluated when he is more awake over the weekend Depending on clinical course and assessment, he may benefit from a neurology evaluation (4) UTI (urinary tract infection): Ux (06/20) w/ Enterobacter Urinalysis has improved Rotate to IV levofloxacin 500 mg for now (5) Acute urinary retention: Continue Lin catheter Continue Flomax (6) Renal insufficiency: Unknown renal baseline S/P 1 L IVF in ED Repeat labs in AM Plan DVT ppx: Heparin 07/03/24 Continue to monitor and continue current management. Need to follow-up case management on Friday for discharge planning 07/04/24 He is hemodynamically stable. Continue current management. Awaiting for discharge planning 07/05/24 He is medically stable. Blood cultures are negative so far. On IV Levaquin for UTI. Awaiting for discharge planning 07/06/24 Medically stable. Awaiting discharge planning. Attestations 2 Medical Necessity Statement*: Awaiting case management for discharge planning. Time Spent in Patient Care: 10 minutes Coding Level of Care Code Acute Code for Chg Fwd Diagnoses Failure to thrive Fall W19.XXXA Rigidity R29.898 UTI (urinary tract infection) N39.0 Acute urinary retention R33.8 Renal insufficiency N28.9 Time Spent (min) 10
[2024-07-06] MEDS: haloperidol inj 5 mg/mL INJ 1 mL 1 MG IVP (19:36)
[2024-07-06] MEDS: haloperidol inj 5 mg/mL INJ 1 mL IVP (19:49)
[2024-07-06] MEDS: ziprasidone 20 mg/mL SDV 10 MG IM (20:25)
--- NOTE | 2024-07-06 20:59 | PC.NURSE ---
Pt arrived to ICU from med surg on bed accompanied by 2 nurses and security at 2034. Patient calm at present, speaks readily to this nurse, no aggression, agreeable to tele and vitals. Oriented to self only, stated he was worried about his truck and distraction was effective. Pt given warm blankets and resting at present. 1:1 sitter at bedside.
[2024-07-06] MEDS: levofloxacin-dextrose 5 % 750 MG/150 ML PREMIX 100 MG IV (21:22)
--- NOTE | 2024-07-06 21:50 | PC.NURSE ---
This nurse was alerted during shift change report with day shift nurse Justine that the patient was becoming increasingly confused and aggressive with the sitter and nursing staff. Upon arrival to the room laurie yan, 2 security officers and sitting staff were redirecting patient and attempting to keep him in bed. The patient was swatting at staff, using profanities and attempting to pull IV line and catheter out. This nurse called and received order to give 1mg IVp Haldol. This nurse gave the medication at 193, the patient had no response to the medication or redirection. color paste mixing supervisor clive called the doctor again and gave another update and received the orders to give 5mg Haldol IVP and call back if the patient had no response. This nurse gave the Haldol at 1948. During this time the patient asked for water and when given water spit it on the security staff on his first drink and ripped IV tubing in half and had scooted himself all the way against the headboard of the bed sitting sideways attempting to get our of bed. The patient also had swatted at security staff multiple times during this interaction and was not redirectable. The doctor was Volted after 25 minutes of the patient not responding to the IVP 5mg haldol and this nurse received the orders for 10mg IM Geodon and to transfer the patient to ICU. Report was called to Sally DALEY in ICU and the patient was to be transfered to ICU 5. This nurse administered the Geodon at 2024 and the patient shortly after was redirected enough to slide him down in bed and transferred down to ICU. this nurse as well as atlanta sup and security transferred the patient down to ICU at 2034 where ICU nurse took over care. The patient was calm during transfer. Physician updated.
[2024-07-06] MEDS: dexmedeTOMIDine 0.9 % NaCL 400 MCG/100 ML PREMIX IV (22:38)
--- NOTE | 2024-07-06 23:44 | PC.NURSE ---
Pt has became increasingly restless, anxious, and agitated and increasingly difficult to redirect. Precedex drip started at 2230 and titrated per protocol.
[2024-07-07] VITALS (208 sets, daily range): BP systolic 80–167; BP diastolic 46–105; PULSE 41–153; RESP 0–33; TEMP 36.3–37; O2SAT 81–98
--- NOTE | 2024-07-07 02:30 | PC.NURSE ---
Precedex stopped at 0200, heart rate dropping into high 40's and sustaining in low 50's. Pt resting at present, BP and spo2 WNL on room air. Awakens with auditory and tactile stimuli, no anxiousness or aggression at this time. 1:1 sitter at bedside.
[2024-07-07] MEDS: sodium chloride 0.9% 1,000 ML 60 ML IV ×2 (02:43→20:13)
--- NOTE | 2024-07-07 04:23 | PC.NURSE ---
Pt increasingly agitated, attempting to crawl out of bed, keeps eyes closed but pulls at lines, gillis, clothing, and blankets. Unable to redirect, attempted to provide distraction and was also ineffective. Spoke with Dr. Mosley, ordered to restart precedex at lower rate and monitor heart rate.
[2024-07-07] MEDS: LORazepam 1 mg Tablet PO ×2 (09:00→20:14)
[2024-07-07] MEDS: aspirin 81 mg EC Tablet PO (09:04)
[2024-07-07] MEDS: tamsulosin 0.4 mg Capsule PO (09:04)
[2024-07-07] MEDS: OLANZapine 5 mg TABLET PO ×2 (09:04→15:47)
[2024-07-07] MEDS: heparin 5,000 unit/mL INJ 1 mL 5000 UNIT SUBCUT ×2 (09:04→20:14)
[2024-07-07] MEDS: timolol 0.5% Op Soln 5 mL Btl 1 DROP EYE-BOTH (09:05)
--- NOTE | 2024-07-07 13:39 | P.PN_ITS ---
Subjective 2 Subjective: No acute overnight events noted. Was found to be agitated yesterday evening hence transferred to ICU for Precedex drip. Could not tolerate due to bradycardic event. Medications: Reviewed: Yes Vitals/I&O/Wt Last Vital Signs Temp 98.5 F 07/07/24 12:40 Pulse 75 07/07/24 13:10 Resp 16 07/07/24 13:10 BP 88/68 07/07/24 13:10 Pulse Ox 81 L 07/07/24 00:55 O2 Del Method Room Air 07/06/24 15:37 07/06/24 07/07/24 07/07/24 22:59 06:59 14:59 Intake Total 600 / 1840 1021.248 / 2861.248 540 / 540 Output Total 800 / 800 2000 / 2800 Balance -200 / 1040 -978.752 / 61.248 540 / 540 Weight last 48 hrs Weight 71.214 kg Weight 71.469 kg Physical Exam 2 Narrative: General: He is alert, awake, oriented x 2, frail-appearing. Head: Atraumatic. EOM intact. Neck: No JVD. Cardiovascular: RRR. No gallops. Lungs: Clear to auscultation, no use of accessory muscles, no crackles or wheezes. Skin: No jaundice. No rashes. Abdomen: Normal bowel sounds, abdomen soft and nontender. Genito Urinary: Lin catheter with garrett urine. Extremities: No cyanosis or clubbing. Musculoskeletal: No swollen or erythematous joints. Neurological: There is movement of all 4 extremities. Urinary Catheter Management: Lin: Cath Placed During This Visit: yes Reason for Continuing Indwelling Catheter: Accurate Measurement of Urinary Output in Critically Ill Patients Urinary Catheter Date of Insertion: 07/02/24 Urinary Catheter Time of Insertion: 19:50 Data 07/06/24 06:38 07/06/24 04:36 A&P Assessment and plan (1) Failure to thrive: Patient presents with failure to thrive in adult Probably will need placement PT/OT evaluation CM consult Medical history is still limited, request outside records from [facility] (2) Fall: Head CT negative for acute findings Fall precautions Neuroexam is limited due to mental status He may have deficits in the left upper extremity, will proceed with cervical neck CT and plain films of left upper extremity given he cannot provide pertinent feedback (3) Rigidity: He is noted to be quite rigid on exam, question underlying possible parkinsonian His movements can be further evaluated when he is more awake over the weekend Depending on clinical course and assessment, he may benefit from a neurology evaluation (4) UTI (urinary tract infection): Ux (06/20) w/ Enterobacter Urinalysis has improved Rotate to IV levofloxacin 500 mg for now (5) Acute urinary retention: Continue Lin catheter Continue Flomax (6) Renal insufficiency: Unknown renal baseline S/P 1 L IVF in ED Repeat labs in AM Plan DVT ppx: Heparin 07/03/24 Continue to monitor and continue current management. Need to follow-up case management on Friday for discharge planning 07/04/24 He is hemodynamically stable. Continue current management. Awaiting for discharge planning 07/05/24 He is medically stable. Blood cultures are negative so far. On IV Levaquin for UTI. Awaiting for discharge planning 07/06/24 Medically stable. Awaiting discharge planning. 07/07/24 Medically stable. Awaiting discharge planning meanwhile he is found to be agitated/sundowning likely secondary to dementia. Started on Zyprexa 5 mg twice daily and Ativan 1 mg 3 times daily, Aricept 5 mg daily. Attestations 2 Medical Necessity Statement*: Awaiting case management for discharge planning. Time Spent in Patient Care: 15 minutes Coding Level of Care Code Acute Code for Chg Fwd Diagnoses Failure to thrive Fall W19.XXXA Rigidity R29.898 UTI (urinary tract infection) N39.0 Acute urinary retention R33.8 Renal insufficiency N28.9 Time Spent (min) 15
[2024-07-07] MEDS: donepezil 5 MG Tablet PO (20:14)
[2024-07-07] MEDS: haloperidol inj 5 mg/mL INJ 1 mL 1 MG IM (22:22)
[2024-07-08] VITALS (203 sets, daily range): BP systolic 85–177; BP diastolic 51–98; PULSE 45–102; RESP 11–27; TEMP 36.2–37; O2SAT 83–99
[2024-07-08] MEDS: haloperidol inj 5 mg/mL INJ 1 mL 1 MG IM (07:15)
[2024-07-08] MEDS: aspirin 81 mg EC Tablet PO (08:09)
[2024-07-08] MEDS: OLANZapine 5 mg TABLET PO (08:09)
[2024-07-08] MEDS: tamsulosin 0.4 mg Capsule PO (08:09)
[2024-07-08] MEDS: LORazepam 1 mg Tablet PO ×2 (08:09→15:21)
[2024-07-08] MEDS: heparin 5,000 unit/mL INJ 1 mL 5000 UNIT SUBCUT ×2 (08:09→21:40)
--- NOTE | 2024-07-08 11:05 | P.PN_ITS ---
Subjective 2 Subjective: Seen him at bedside this morning. He has been sedated on Precedex drip. Overnight had an episode of agitation. Medications: Reviewed: Yes Vitals/I&O/Wt Last Vital Signs Temp 97.2 F L 07/08/24 01:55 Pulse 49 L 07/08/24 09:45 Resp 16 07/08/24 09:45 BP 153/78 07/08/24 09:45 Pulse Ox 97 07/08/24 09:45 O2 Del Method Room Air 07/06/24 15:37 07/07/24 07/08/24 07/08/24 22:59 06:59 14:59 Intake Total 1120 / 1660 10.900 / 1670.900 Output Total 500 / 500 Balance 1120 / 1660 -489.100 / 1170.900 Weight last 48 hrs Weight 70.488 kg Weight 71.214 kg Physical Exam 2 Narrative: General: He is drowsy Head: Atraumatic. EOM intact. Neck: No JVD. Cardiovascular: RRR. No gallops. Lungs: Clear to auscultation, no use of accessory muscles, no crackles or wheezes. Skin: No jaundice. No rashes. Abdomen: Normal bowel sounds, abdomen soft and nontender. Genito Urinary: Lin catheter with garrett urine. Extremities: No cyanosis or clubbing. Musculoskeletal: No swollen or erythematous joints. Neurological: There is movement of all 4 extremities. Urinary Catheter Management: Lin: Cath Placed During This Visit: yes Reason for Continuing Indwelling Catheter: Accurate Measurement of Urinary Output in Critically Ill Patients Urinary Catheter Date of Insertion: 07/02/24 Urinary Catheter Time of Insertion: 19:50 Data 07/06/24 06:38 07/06/24 04:36 Micro: Microbiology 07/02/24 16:15 Blood Culture - Final Blood NO GROWTH AFTER 5 DAYS 07/02/24 16:11 Blood Culture - Final Blood NO GROWTH AFTER 5 DAYS A&P Assessment and plan (1) Failure to thrive: Patient presents with failure to thrive in adult Probably will need placement PT/OT evaluation CM consult Medical history is still limited, request outside records from [facility] (2) Fall: Head CT negative for acute findings Fall precautions Neuroexam is limited due to mental status He may have deficits in the left upper extremity, will proceed with cervical neck CT and plain films of left upper extremity given he cannot provide pertinent feedback (3) Rigidity: He is noted to be quite rigid on exam, question underlying possible parkinsonian His movements can be further evaluated when he is more awake over the weekend Depending on clinical course and assessment, he may benefit from a neurology evaluation (4) UTI (urinary tract infection): Ux (06/20) w/ Enterobacter Urinalysis has improved Rotate to IV levofloxacin 500 mg for now (5) Acute urinary retention: Continue Lin catheter Continue Flomax (6) Renal insufficiency: Unknown renal baseline S/P 1 L IVF in ED Repeat labs in AM Plan DVT ppx: Heparin 07/03/24 Continue to monitor and continue current management. Need to follow-up case management on Friday for discharge planning 07/04/24 He is hemodynamically stable. Continue current management. Awaiting for discharge planning 07/05/24 He is medically stable. Blood cultures are negative so far. On IV Levaquin for UTI. Awaiting for discharge planning 07/06/24 Medically stable. Awaiting discharge planning. 07/07/24 Medically stable. Awaiting discharge planning meanwhile he is found to be agitated/sundowning likely secondary to dementia. Started on Zyprexa 5 mg twice daily and Ativan 1 mg 3 times daily, Aricept 5 mg daily. 07/08/24 Will start him on risperidone 2.5 mg twice daily and decrease Zyprexa to 2.5 mg OD, continue Ativan 1 mg 3 times daily and Aricept 5 mg daily for agitation. Try to taper off Precedex drip this morning Continue to follow-up with case management for discharge planning to [facility] versus halfway. Attestations 2 Medical Necessity Statement*: Awaiting case management for discharge planning. Meanwhile he is being managed for dementia with agitation Time Spent in Patient Care: 15 minutes Coding Level of Care Code Acute Code for Chg Fwd Diagnoses Failure to thrive Fall W19.XXXA Rigidity R29.898 UTI (urinary tract infection) N39.0 Acute urinary retention R33.8 Renal insufficiency N28.9 Time Spent (min) 15
[2024-07-08] MEDS: risperiDONE 0.25 mg Tablet PO (17:14)
[2024-07-08] MEDS: haloperidol 1 mg Tablet PO (17:15)
[2024-07-08] MEDS: OLANZapine 5 mg TABLET 2.5 MG PO (17:15)
[2024-07-08] MEDS: donepezil 5 MG Tablet PO (21:41)
[2024-07-08] MEDS: levofloxacin-dextrose 5 % 750 MG/150 ML PREMIX 100 MG IV (21:41)
[2024-07-08] MEDS: haloperidol inj 5 mg/mL INJ 1 mL IVP (22:05)
--- NOTE | 2024-07-08 22:15 | PC.NURSE ---
Patient started pulling at IV site and swatting at nurse attempts to redirect. levofloxacin paused. Halidol IVP prn given.
--- NOTE | 2024-07-08 22:30 | PC.NURSE ---
Contacted Dr. Mosley in reference to patient pulling at all lines and swatting at Staff's attempts to redirect. Received orders for soft restraints.
[2024-07-09] VITALS (26 sets, daily range): BP systolic 91–161; BP diastolic 52–93; PULSE 64–110; RESP 14–38; TEMP 36.4–36.9; O2SAT 91–98
[2024-07-09 03:47] LABS: Basophils % 0.5 %; Eosinophils # 0.1 10^3/uL (0.0-0.8); Eosinophils % 1.8 %; Hematocrit 39.5 % (37-53); Lymphocytes # 1.2 10^3/uL (0.8-4.8); Lymphocytes % 21.3 %; Mean Corpuscular HGB Conc 32.7 g/dL (30-55); Mean Corpuscular Hemoglobin 30.1 pg (27-33); Mean Corpuscular Volume 92.3 fl (82-101); Mean Platelet Volume 9.6 fL (7.4-10.4); Monocytes # 0.5 10^3/uL (0.2-0.9); Monocytes % 8.2 %; Neutrophils # 3.79 10^3/uL (1.8-7.7); Neutrophils % 67.8 %; Nucleated Red Blood Cells % 0 %; Platelet Count 215 10^3/cmm (157-399); Red Blood Count 4.28 10^6/uL (3.85-5.65); Red Cell Distribution Width 13.4 % (12.1-15.1); White Blood Count 5.59 10^3/uL (3.29-11.43)
[2024-07-09 04:16] LABS: Anion Gap 10.9 (5-19); Blood Urea Nitrogen 19 mg/dL (8-23); Calcium 9.4 mg/dL (8.5-10.5); Carbon Dioxide 28 mmol/L (22-29); Chloride 103 mmol/L (98-107); Creatinine Clr Calc Pharmacy 57.4187; Glucose 101 mg/dL (65-115); Osmolality Calculated 288 mOsm/kg (285-295); Potassium 3.9 mmol/L (3.5-5.1); Sodium 138 mmol/L (136-145)
[2024-07-09 07:18] LABS: Bacteria Urine None Seen /hpf; Hyaline Casts Urine 0.81 /lpf; RBC Urine 0-2 /hpf (0-2); Squamous Epithelial Cell Urine 0-5 /hpf (0-5); WBC Urine 0-5 /hpf (0-5)
[2024-07-09 07:24] LABS: Add Urine Microscopic? YES; Bilirubin Urine Negative (Negative); Blood Urine Negative (Negative); Glucose Urine UA Negative (Normal); Ketones Urine Negative (Negative); Leukocyte Esterase Urine 1+ (Negative); Nitrate Urine Negative (Negative); Protein Urine Negative (Negative); Specific Gravity, Urine 1.006 (1.005-1.030); Urine Appearance Clear (CLEAR); Urine Color Yellow (Yellow); Urobilinogen Urine 0.2 mg/dL (Negative); pH Urine 6.5 (5-7)
[2024-07-09] MEDS: OLANZapine 5 mg TABLET 2.5 MG PO ×2 (08:11→17:40)
[2024-07-09] MEDS: aspirin 81 mg EC Tablet PO (08:11)
[2024-07-09] MEDS: tamsulosin 0.4 mg Capsule PO (08:12)
[2024-07-09] MEDS: heparin 5,000 unit/mL INJ 1 mL 5000 UNIT SUBCUT ×2 (08:12→20:36)
[2024-07-09] MEDS: risperiDONE 0.25 mg Tablet PO (08:12)
[2024-07-09] MEDS: haloperidol 1 mg Tablet PO ×2 (08:12→17:40)
[2024-07-09] MEDS: timolol 0.5% Op Soln 5 mL Btl 1 DROP EYE-BOTH (08:57)
--- NOTE | 2024-07-09 10:40 | PC.NURSE ---
Assisted to bed side commode with 2 person assist. Patient very weak and shaky. Continues pulling at gillis and IV in the process. MD and case checker talked about placement after discharge. states that we need to get the restraints off of patient and to D/C gillis and IV.
--- NOTE | 2024-07-09 13:44 | PC.NURSE ---
Report called to THUY Terry on [facility]. Concerns expressed because patient was admitted with gillis cath for urinary retention prior to admit. Contacted Dr. Wells and notified of these concerns. Order given to keep gillis out at present time and if pt does not void by this evening bladder scan and re-insert gillis if needed but does not want to replace in not needed because if patient pulls out then more trauma will incurr.
--- NOTE | 2024-07-09 14:02 | PC.NURSE ---
Transferred to [place] [id number] via bed.
--- NOTE | 2024-07-09 16:21 | PC.NURSE ---
Pt chronic gillis removed in ICU. With bladder scan, 500ml noted to be in bladder. Gillis reinserted per Dr. Wells. Pt agreeable to insertion. No concerns voiced at this time. Tolerated insertion well.
--- NOTE | 2024-07-09 16:27 | P.PN_ITS ---
Subjective 2 Subjective: Seen him at bedside this morning. Still seems to be confused. Medications: Reviewed: Yes Vitals/I&O/Wt Last Vital Signs Temp 97.6 F 07/09/24 12:00 Pulse 80 07/09/24 12:00 Resp 18 07/09/24 12:00 BP 147/90 07/09/24 12:00 Pulse Ox 97 07/09/24 10:00 O2 Del Method Mechanical Ventilation 07/09/24 08:00 07/09/24 07/09/24 07/09/24 06:59 14:59 22:59 Intake Total 143.333 / 1150.000 475 / 475 Output Total 2450 / 5450 850 / 850 Balance -2306.667 / -4300.000 -375 / -375 Weight last 48 hrs Weight 67.449 kg Weight 70.488 kg Physical Exam 2 Narrative: General: He is sitting comfortably in the chair but confused Head: Atraumatic. EOM intact. Neck: No JVD. Cardiovascular: RRR. No gallops. Lungs: Clear to auscultation, no use of accessory muscles, no crackles or wheezes. Skin: No jaundice. No rashes. Abdomen: Normal bowel sounds, abdomen soft and nontender. Genito Urinary: Lin catheter with garrett urine. Extremities: No cyanosis or clubbing. Musculoskeletal: No swollen or erythematous joints. Neurological: There is movement of all 4 extremities. Urinary Catheter Management: Lin: Cath Placed During This Visit: yes Reason for Continuing Indwelling Catheter: Accurate Measurement of Urinary Output in Critically Ill Patients Urinary Catheter Date of Insertion: 07/02/24 Urinary Catheter Time of Insertion: 19:50 Data 07/09/24 03:27 07/09/24 03:27 A&P Assessment and plan (1) Failure to thrive: Patient presents with failure to thrive in adult Probably will need placement PT/OT evaluation CM consult Medical history is still limited, request outside records from [facility] (2) Fall: Head CT negative for acute findings Fall precautions Neuroexam is limited due to mental status He may have deficits in the left upper extremity, will proceed with cervical neck CT and plain films of left upper extremity given he cannot provide pertinent feedback (3) Rigidity: He is noted to be quite rigid on exam, question underlying possible parkinsonian His movements can be further evaluated when he is more awake over the weekend Depending on clinical course and assessment, he may benefit from a neurology evaluation (4) UTI (urinary tract infection): Ux (06/20) w/ Enterobacter Urinalysis has improved Rotate to IV levofloxacin 500 mg for now (5) Acute urinary retention: Continue Lin catheter Continue Flomax (6) Renal insufficiency: Unknown renal baseline S/P 1 L IVF in ED Repeat labs in AM Plan DVT ppx: Heparin 07/03/24 Continue to monitor and continue current management. Need to follow-up case management on Friday for discharge planning 07/04/24 He is hemodynamically stable. Continue current management. Awaiting for discharge planning 07/05/24 He is medically stable. Blood cultures are negative so far. On IV Levaquin for UTI. Awaiting for discharge planning 07/06/24 Medically stable. Awaiting discharge planning. 07/07/24 Medically stable. Awaiting discharge planning meanwhile he is found to be agitated/sundowning likely secondary to dementia. Started on Zyprexa 5 mg twice daily and Ativan 1 mg 3 times daily, Aricept 5 mg daily. 07/08/24 Will start him on risperidone 2.5 mg twice daily and decrease Zyprexa to 2.5 mg OD, continue Ativan 1 mg 3 times daily and Aricept 5 mg daily for agitation. Try to taper off Precedex drip this morning Continue to follow-up with case management for discharge planning to [facility] versus [facility]. 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 Transferred to medical floor for further management awaiting discharge planning Attestations 2 Medical Necessity Statement*: Awaiting case management for discharge planning. Meanwhile he is being managed for dementia with agitation with psychiatry consult Time Spent in Patient Care: 15 minutes Coding Level of Care Code Acute Code for Chg Fwd Diagnoses Failure to thrive Fall W19.XXXA Rigidity R29.898 UTI (urinary tract infection) N39.0 Acute urinary retention R33.8 Renal insufficiency N28.9 Time Spent (min) 15
[2024-07-09] MEDS: risperiDONE 0.25 mg Tablet 0.5 MG PO (17:40)
[2024-07-09] MEDS: LORazepam 2 mg/mL INJ 1 mL 1 MG IVP (18:43)
--- NOTE | 2024-07-09 19:01 | PC.NURSE ---
This aide answered the assist light in room 254 for bed 1 as the sitter needed help. The patient was hitting at and kicking at the sitter and later this aide was kicked at and hit in the shoulder. When pt was also getting an iv put in the pt also tried biting this aide and the nurse's and sitter as well.
--- NOTE | 2024-07-09 19:05 | PC.NURSE ---
Attempted to redirect pt with sitting in the w/c. When pt sits up, bp noted to be 60/30. Not responsive to sternal rub. Pt lays back down, notified Dr. Wells. Pt bolused 500ml per order. Once pt becomes responsive, he begins and hitting, scratching, biting, kicking, banging head, attempting to remove gillis catheter. Security called. Dr. Wells verbally orders ashlyn restraints to bilateral wrists/ankles. Dr. Wells present. Dr. Wells also orders one-time Haldol if needed. Pt calms p restraint placement.
--- NOTE | 2024-07-09 19:09 | PC.NURSE ---
This sitter/nurse tech was assisting the patient with eating his meal the patient asked to call his brother. Pt attempted to remember brother's phone number, as I tried to dial it for him. The EQUAL OPPORTUNITY REPRESENTATIVE was asked to get the patient's brother's number. While waiting the patient became irritated and threw water on himself, the bed, and the wall. While the EQUAL OPPORTUNITY REPRESENTATIVE was getting a change of clothing and bedding the patient began swinging arms, biting, and kicking at the sitter. After the patient was changed and bed was remade the EQUAL OPPORTUNITY REPRESENTATIVE left and the patient begin to kick, swing arms, and bite at the sitter. When the EQUAL OPPORTUNITY REPRESENTATIVE returned the RN was with her and witnessed pt behavior. RN administered medication. The patient continued behavior. RN suggested to ambulate pt to a wheelchair and push him around the unit. After the sitter and EQUAL OPPORTUNITY REPRESENTATIVE assisted pt to wheelchair the patient became withdrawn, pt unresponsive to painful stimuli, sternal rub and trape pinch. BP 61/35. EQUAL OPPORTUNITY REPRESENTATIVE retrieved two different RNs, pt was moved back to bed. Once in bed patient became combative again, kicking, swinging arms, pinching, and biting while RN attempted to start an IV. Security called at 18:21. Doctor entered sometime after security. pt currently in restraints.
--- NOTE | 2024-07-09 19:50 | PC.NURSE ---
Patient sedated, released from four point restraints at 194.
--- NOTE | 2024-07-09 19:56 | PC.NURSE ---
Patient currently chemically sedated at this time.
[2024-07-10 04:14] VITALS: BP 116/74; PULSE 61; RESP 16; O2SAT 93
[2024-07-10 07:58] VITALS: BP 107/63; PULSE 63; RESP 16; TEMP 36.8; O2SAT 95
[2024-07-10] MEDS: haloperidol 1 mg Tablet PO ×2 (08:55→17:58)
[2024-07-10] MEDS: risperiDONE 0.25 mg Tablet 0.5 MG PO ×2 (08:55→17:59)
[2024-07-10] MEDS: tamsulosin 0.4 mg Capsule PO (08:55)
[2024-07-10] MEDS: heparin 5,000 unit/mL INJ 1 mL 5000 UNIT SUBCUT ×2 (08:56→21:41)
[2024-07-10] MEDS: timolol 0.5% Op Soln 5 mL Btl 1 DROP EYE-BOTH (08:56)
[2024-07-10] MEDS: aspirin 81 mg EC Tablet PO (08:56)
[2024-07-10 11:43] VITALS: BP 117/68; PULSE 75; RESP 16; TEMP 36.8; O2SAT 95
--- NOTE | 2024-07-10 14:26 | P.PN_ITS ---
Subjective 2 Subjective: Seen him at bedside this morning, still seems to be agitated and confused, trying to get out of bed Medications: Reviewed: Yes Vitals/I&O/Wt Last Vital Signs Temp 98.3 F 07/10/24 11:43 Pulse 75 07/10/24 11:43 Resp 16 07/10/24 11:43 BP 117/68 07/10/24 11:43 Pulse Ox 95 07/10/24 11:43 O2 Del Method Room Air 07/10/24 11:43 07/09/24 07/10/24 07/10/24 22:59 06:59 14:59 Intake Total 118 / 593 0 / 593 120 / 120 Output Total 950 / 1800 Balance 118 / -257 -950 / -1207 120 / 120 Weight last 48 hrs Weight 66.769 kg Weight 67.449 kg Physical Exam 2 Narrative: General: He is sitting comfortably in the chair but confused Head: Atraumatic. EOM intact. Neck: No JVD. Cardiovascular: RRR. No gallops. Lungs: Clear to auscultation, no use of accessory muscles, no crackles or wheezes. Skin: No jaundice. No rashes. Abdomen: Normal bowel sounds, abdomen soft and nontender. Genito Urinary: Lin catheter with garrett urine. Extremities: No cyanosis or clubbing. Musculoskeletal: No swollen or erythematous joints. Neurological: There is movement of all 4 extremities. Urinary Catheter Management: Lin: Cath Placed During This Visit: yes Reason for Continuing Indwelling Catheter: Acute Urinary Retention or Obstruction Urinary Catheter Date of Insertion: 07/02/24 Urinary Catheter Time of Insertion: 19:50 Data 07/09/24 03:27 07/09/24 03:27 A&P Assessment and plan (1) Failure to thrive: Patient presents with failure to thrive in adult Probably will need placement PT/OT evaluation CM consult Medical history is still limited, request outside records from [facility] (2) Fall: Head CT negative for acute findings Fall precautions Neuroexam is limited due to mental status He may have deficits in the left upper extremity, will proceed with cervical neck CT and plain films of left upper extremity given he cannot provide pertinent feedback (3) Rigidity: He is noted to be quite rigid on exam, question underlying possible parkinsonian His movements can be further evaluated when he is more awake over the weekend Depending on clinical course and assessment, he may benefit from a neurology evaluation (4) UTI (urinary tract infection): Ux (06/20) w/ Enterobacter Urinalysis has improved Rotate to IV levofloxacin 500 mg for now (5) Acute urinary retention: Continue Lin catheter Continue Flomax (6) Renal insufficiency: Unknown renal baseline S/P 1 L IVF in ED Repeat labs in AM Plan DVT ppx: Heparin 07/03/24 Continue to monitor and continue current management. Need to follow-up case management on Friday for discharge planning 07/04/24 He is hemodynamically stable. Continue current management. Awaiting for discharge planning 07/05/24 He is medically stable. Blood cultures are negative so far. On IV Levaquin for UTI. Awaiting for discharge planning 07/06/24 Medically stable. Awaiting discharge planning. 07/07/24 Medically stable. Awaiting discharge planning meanwhile he is found to be agitated/sundowning likely secondary to dementia. Started on Zyprexa 5 mg twice daily and Ativan 1 mg 3 times daily, Aricept 5 mg daily. 07/08/24 Will start him on risperidone 2.5 mg twice daily and decrease Zyprexa to 2.5 mg OD, continue Ativan 1 mg 3 times daily and Aricept 5 mg daily for agitation. Try to taper off Precedex drip this morning Continue to follow-up with case management for discharge planning to [facility] versus long-term. 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 Transferred to medical floor for further management awaiting discharge planning 07/10/24 He is medically stable but confused and agitated. Follow-up psychiatry consult Had an episode of hypotension last night while transferring from bed to chair. Will discontinue Zyprexa. Continue risperidone, Aricept and Haldol. Will need case management for discharge planning. Attestations 2 Medical Necessity Statement*: Awaiting case management for discharge planning Time Spent in Patient Care: 15 minutes Coding Level of Care Code Acute Code for g Fwd Diagnoses Failure to thrive Fall W19.XXXA Rigidity R29.898 UTI (urinary tract infection) N39.0 Acute urinary retention R33.8 Renal insufficiency N28.9 Time Spent (min) 15
[2024-07-10 16:00] VITALS: BP 170/77; PULSE 89; RESP 17; TEMP 36.8; O2SAT 95
[2024-07-10 19:25] VITALS: BP 120/73; PULSE 76; RESP 17; TEMP 36.6; O2SAT 96
[2024-07-10] MEDS: haloperidol inj 5 mg/mL INJ 1 mL IVP (22:08)
[2024-07-10] MEDS: LORazepam 2 mg/mL INJ 1 mL 1 MG IVP (23:07)
[2024-07-11] VITALS: PULSE 81; O2SAT 95
[2024-07-11 04:00] VITALS: BP 123/74; PULSE 79; RESP 15; TEMP 36.5; O2SAT 95
[2024-07-11 07:56] VITALS: BP 129/64; PULSE 92; RESP 16; TEMP 36.3; O2SAT 97
[2024-07-11] MEDS: tamsulosin 0.4 mg Capsule PO (08:44)
[2024-07-11] MEDS: heparin 5,000 unit/mL INJ 1 mL 5000 UNIT SUBCUT (08:44)
[2024-07-11] MEDS: LORazepam 2 mg/mL INJ 1 mL 1 MG IVP (09:14)
[2024-07-11 11:54] VITALS: BP 113/58; PULSE 108; RESP 16; TEMP 36.6; O2SAT 96
--- NOTE | 2024-07-11 14:01 | PM.PN ---
Subjective Subjective: Seen him at bedside this morning he is still agitated and confused. No acute overnight events noted. He is staying with as needed Ativan Medications: Reviewed: Yes Vitals/I&O/Wt Last Vital Signs Temp 97.8 F 07/11/24 11:54 Pulse 108 H 07/11/24 11:54 Resp 16 07/11/24 11:54 BP 113/58 07/11/24 11:54 Pulse Ox 96 07/11/24 11:54 O2 Del Method Room Air 07/11/24 11:54 07/10/24 07/11/24 07/11/24 22:59 06:59 14:59 Intake Total 1480 / 1600 120 / 1720 130 / 130 Output Total 1600 / 1600 300 / 1900 475 / 475 Balance -120 / 0 -180 / -180 -345 / -345 Weight last 48 hrs Weight 66.905 kg Weight 66.769 kg Physical Exam Narrative: General: He is sitting comfortably in the chair but confused Head: Atraumatic. EOM intact. Neck: No JVD. Cardiovascular: RRR. No gallops. Lungs: Clear to auscultation, no use of accessory muscles, no crackles or wheezes. Skin: No jaundice. No rashes. Abdomen: Normal bowel sounds, abdomen soft and nontender. Genito Urinary: Lin catheter with garrett urine. Extremities: No cyanosis or clubbing. Musculoskeletal: No swollen or erythematous joints. Neurological: There is movement of all 4 extremities. Urinary Catheter Management: Lin: Cath Placed During This Visit: yes Reason for Continuing Indwelling Catheter: Acute Urinary Retention or Obstruction Urinary Catheter Date of Insertion: 07/02/24 Urinary Catheter Time of Insertion: 19:50 Data 07/09/24 03:27 07/09/24 03:27 A&P Assessment and plan (1) Failure to thrive: Patient presents with failure to thrive in adult Probably will need placement PT/OT evaluation CM consult Medical history is still limited, request outside records from [facility] (2) Fall: Head CT negative for acute findings Fall precautions Neuroexam is limited due to mental status He may have deficits in the left upper extremity, will proceed with cervical neck CT and plain films of left upper extremity given he cannot provide pertinent feedback (3) Rigidity: He is noted to be quite rigid on exam, question underlying possible parkinsonian His movements can be further evaluated when he is more awake over the weekend Depending on clinical course and assessment, he may benefit from a neurology evaluation (4) UTI (urinary tract infection): Ux (06/20) w/ Enterobacter Urinalysis has improved Rotate to IV levofloxacin 500 mg for now (5) Acute urinary retention: Continue Lin catheter Continue Flomax (6) Renal insufficiency: Unknown renal baseline S/P 1 L IVF in ED Repeat labs in AM Plan DVT ppx: Heparin 07/03/24 Continue to monitor and continue current management. Need to follow-up case management on Friday for discharge planning 07/04/24 He is hemodynamically stable. Continue current management. Awaiting for discharge planning 07/05/24 He is medically stable. Blood cultures are negative so far. On IV Levaquin for UTI. Awaiting for discharge planning 07/06/24 Medically stable. Awaiting discharge planning. 07/07/24 Medically stable. Awaiting discharge planning meanwhile he is found to be agitated/sundowning likely secondary to dementia. Started on Zyprexa 5 mg twice daily and Ativan 1 mg 3 times daily, Aricept 5 mg daily. 07/08/24 Will start him on risperidone 2.5 mg twice daily and decrease Zyprexa to 2.5 mg OD, continue Ativan 1 mg 3 times daily and Aricept 5 mg daily for agitation. Try to taper off Precedex drip this morning Continue to follow-up with case management for discharge planning to [facility] versus long-term. 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 Transferred to medical floor for further management awaiting discharge planning 07/10/24 He is medically stable but confused and agitated. Follow-up psychiatry consult Had an episode of hypotension last night while transferring from bed to chair. Will discontinue Zyprexa. Continue risperidone, Aricept and Haldol. Will need case management for discharge planning. 07/11/24 He continues to be hemodynamically stable but confused and agitated likely secondary to dementia with behavioral disturbances. Follow-up case management in a.m. for discharge planning. Attestations Medical Necessity Statement*: Awaiting discharge planning Time Spent in Patient Care: 15 minutes Coding Level of Care Code Acute Code for Chg Fwd Diagnoses Failure to thrive Fall W19.XXXA Rigidity R29.898 UTI (urinary tract infection) N39.0 Acute urinary retention R33.8 Renal insufficiency N28.9 Time Spent (min) 15
[2024-07-11 15:37] VITALS: BP 149/89; PULSE 90; RESP 15; TEMP 36.6; O2SAT 97
--- NOTE | 2024-07-11 15:37 | P.NPUCON_ITS ---
Providers/Reason for Consult 2 Consulting Physican/Specialty*: Hugo Ruelas MD. Psychiatry. Reason for Consult*: Evaluate for need for acute psychiatric care. Attending Physician: Marilu Wells MD Psych Consult HPI History of Present Illness Monty Hayden is a 74 year old male who presented to the emergency department with the following report: Chief Complaint: Altered Mental Status Stated Complaint: stroke like symptoms (dr. rucker) Time Seen by Provider: 07/02/24 15:49 History of Present Illness: 74-year-old man with suspected dementia and only other real medical problems is recently diagnosed BPH with urinary retention and now with a chronic indwelling Lin catheter for the last few weeks. Family brings him in at the direction of their primary physician to possibly be admitted to a assisted. He has been having falls. They say he will start almost running backwards and fall backwards. No known history of Parkinson's or anything like this. They say he is also started wandering. They will have to go look at neighbors homes. [place] He seems more acutely confused over the last couple of weeks. Apparently he has been admitted to [facility] twice in the last couple of months for as many as 8 or 9 days at 1 point. This was when he was diagnosed with renal failure and urinary retention. His brother is a family that is with him here today. He says the last fall he actually caught him before he went down. They are concerned that he may hurt himself or wander off. He said nighttime is when he tries to wander. [facility] for definitive treatment of those issues. Concerns about agitated behavior led to a psychiatric consult. Patient presents today reporting that he is doing okay. He reports that he is only taking the psychiatric medications we are giving him. He denies any specific history of psychiatric care however it is noteworthy that his own report is that his memory has been problematic for the past couple of years. He reports that his current situation was created by having a hospitalization recently but left him quite debilitated and he and his family decided that he would go live with his brother who he reports is may be a year older as well as his yeodaf-eg-vap. But he reports that things have not been going well there which led to him coming back to the hospital. Staff reports that these issues at his brother's house include him wandering at times which really concerns his family to the point where his brother has started sleeping in places where he can identify his brothers movements. The behaviors that were reported by staff when he came in including throwing things which have now resolved he does not really remember doing those things and we discussed that likely being part of a possibly encephalopathic presentation. He presented with altered mental status but was able to have a fairly straightforward conversation today. He demonstrated some memory capacity being able to identify the month but not the day. He identified the season. He knew that he was in [facility] but said that he was in [facility] and not [facility]. He does not know the day. But conversations about his history seem to reflect accurately. Endorsing that he is in not been and he was able to talk about past career. He denied any issues with feeling depressed or anxious and denied any thoughts to hurt himself, kill himself or hurt or kill anyone else. He seemed to identify that he would like to return to his brother's house but he understands that that is not in the plans. We briefly discussed the medications that he was getting, but it is unclear that he really understands the situation or remembers the moments that led to concerns for the need for medications to help with his agitation which appears to have resolved. We reviewed his past history and there were no other noteworthy issues. Meds Home Medications and Allergies Home Medications Medication Instructions Recorded Confirmed Last Taken Type albuterol sulfate 90 mcg/actuation 90 mcg inhalation DAILY 06/20/24 07/02/24 Unknown History aerosol inhaler aspirin 81 mg tablet,delayed 81 mg PO DAILY 06/20/24 07/02/24 07/01/24 History release (Neyda Low Dose Aspirin) diphenhydramine HCl 25 mg tablet 25 mg PO TID PRN sleep 06/20/24 07/02/24 07/01/24 History (Benadryl Allergy) linaclotide 290 mcg capsule 290 mcg PO DAILY 06/20/24 07/02/24 07/01/24 History (Linzess) olanzapine 2.5 mg tablet 2.5 mg PO DAILY 06/20/24 07/02/24 06/30/24 History tamsulosin 0.4 mg capsule 0.4 mg PO DAILY 06/20/24 07/02/2424 History levofloxacin 500 mg tablet 500 mg PO DAILY 07/02/24 07/02/24 07/01/24 History melatonin 3 mg tablet 3 mg PO DAILY 07/02/24 07/02/24 07/01/24 History timolol maleate 0.5 % eye drops 1 drp ophthalmic (eye) DAILY 07/02/24 07/02/24 07/01/24 History finasteride 5 mg tablet 5 mg PO DAILY 07/05/24 07/05/24 Unknown History Allergies Allergy/AdvReac Type Severity Reaction Status Date / Time No Known Allergies Allergy Verified 06/20/24 10:58 Current Medications Current Medications Generic Name Dose Route Start Last Admin Trade Name Freq PRN Reason Stop Dose Admin Acetaminophen 650 mg 07/02/24 20:28 07/03/24 15:20 Acetaminophen 325 Mg Tablet PO 650 mg Q6H PRN Administration Mild/Mod Pain Or Temp >/= 101 Aspirin 81 mg 07/03/24 09:00 07/11/24 11:40 Aspirin 81 Mg Ec Tablet PO Not Given DAILY LORY Donepezil HCl 5 mg 07/07/24 21:00 07/10/24 21:43 Donepezil 5 Mg Tablet PO Not Given BEDTIME LORY Haloperidol 1 mg 07/08/24 18:00 07/11/24 17:17 Haloperidol 1 Mg Tablet PO 1 mg BID LORY Administration Heparin Sodium (Porcine) 5,000 unit 07/02/24 21:00 07/11/24 08:44 Heparin 5,000 Unit/Ml Inj 1 Ml SUBCUT 5,000 unit Q12H LORY Administration Lorazepam 1 mg 07/11/24 07:59 07/11/24 09:14 Lorazepam 2 Mg/Ml Inj 1 Ml IVP 1 mg TID PRN Administration AGITATION Risperidone 0.5 mg 07/09/24 18:00 07/11/24 17:17 Risperidone 0.25 Mg Tablet PO 0.5 mg BID LORY Administration Tamsulosin HCl 0.4 mg 07/03/24 09:00 07/11/24 08:44 Tamsulosin 0.4 Mg Capsule PO 0.4 mg DAILY LORY Administration Timolol Maleate 1 drop 07/03/24 09:00 07/11/24 10:02 Timolol 0.5% Op Soln 5 Ml Btl EYE-BOTH Not Given DAILY LORY PFSH NPU 2 PFSH: Medical History Small bowel cancer Surgical History History of intestinal surgery Family History Sister Alzheimer's dementia Social History Smoking and tobacco/nicotine status: never used tobacco/nicotine Alcohol intake: never Substance/Drug Use: never Mental Status Exam 2 MSE Comments: This is a underweight versus cachectic white male in hospital gown but mostly off of his body with poor grooming and eye contact. No abnormal movements except for psychomotor retardation. Cooperative with exam in no acute distress. Speech was normal rate, decreased volume and very dysarthric. Mood described as fine, affect subdued. Thought process linear. Thought content: Patient denied suicidal or homicidal ideation, there were no delusions reported or noted, he denied any auditory or visual hallucinations. Attention and concentration appeared mostly intact and memory was impaired but none were formally tested. He is alert and oriented times person and place. Insight and judgment are limited and impulse control impaired. Vitals/I&O/Wt Last Vital Signs Temp 97.9 F 07/11/24 15:37 Pulse 90 07/11/24 15:37 Resp 15 07/11/24 15:37 BP 149/89 07/11/24 15:37 Pulse Ox 97 07/11/24 15:37 O2 Del Method Room Air 07/11/24 15:37 07/11/24 07/11/24 07/11/24 06:59 14:59 22:59 Intake Total 120 / 1720 130 / 130 Output Total 300 / 1900 475 / 475 Balance -180 / -180 -345 / -345 Weight last 48 hrs Weight 66.905 kg Weight 66.769 kg Physical Exam 2 Urinary Catheter Management: Lin: Cath Placed During This Visit: yes Reason for Continuing Indwelling Catheter: Acute Urinary Retention or Obstruction Urinary Catheter Date of Insertion: 07/02/24 Urinary Catheter Time of Insertion: 19:50 Data NPU 07/09/24 03:27 07/09/24 03:27 A&P Assessment and plan (1) Failure to thrive: (2) Renal insufficiency: (3) UTI (urinary tract infection): (4) Dementia: Plan This is a 74-year-old white male with a reported recent history of cognitive decline and memory difficulties who was being managed at his brother's home but returned secondary to medical complications and wandering likely secondary to his dementia and sundowning. 1. Continue current medication. Agree with current medication. 2. No identifiable need for acute inpatient geriatric care. 3. Agree that focus on managing his dementia including likely residential services necessary. 4. Recommend [facility] evaluation and proceeding with referral for assisted. 5. Will continue to follow. Attestations NPU 2 Medical Necessity Statement*: N/A. Please see primary team note for medical necessity. But agree patient likely in need of 24-hour assistance. Coding Level of Care Code Acute Code for g Fwd Diagnoses Failure to thrive Renal insufficiency N28.9 UTI (urinary tract infection) N39.0 Dementia F03.90
[2024-07-11] MEDS: risperiDONE 0.25 mg Tablet 0.5 MG PO (17:17)
[2024-07-11] MEDS: haloperidol 1 mg Tablet PO (17:17)
[2024-07-11] MEDS: haloperidol inj 5 mg/mL INJ 1 mL 1 MG IM (20:33)
[2024-07-12] VITALS: BP 142/77; PULSE 91; RESP 16; TEMP 36.4; O2SAT 97
[2024-07-12] MEDS: heparin 5,000 unit/mL INJ 1 mL 5000 UNIT SUBCUT ×3 (00:48→22:02)
[2024-07-12] MEDS: LORazepam 2 mg/mL INJ 1 mL 1 MG IVP (01:20)
--- NOTE | 2024-07-12 06:10 | PC.NURSE ---
At the beginning of this RNs shift, pt was agitated and was attempting to get out of bed by kicking legs over the side rails and using the rails to pull himself up. This RN tried to redirect and reorientate pt and was unsuccessful. This RN went to give 1mg ativan IVP and during administration the IV started leaking and a wet spot was noticed on the bed. This RN waited 30 mins while redirecting the pt to get back in bed and pt was still agitated and started to kick this RN. This RN reached out to the MD one piece expansion maker hand and got a one time order for 1 mg haldol IM. This RN gave medication and about an hour later pt started to calm down and this RN was able to place another IV. Around 0130 pt became agitated again and was attempting to get out of bed. This RN attempted to redirect pt with no success. Pt started yelling and kicking this RN. This RN gave PRN ativan IVP, immediately after the pt started to pull on IV catheter. This RN flushed IV and IV started leaking. Pt calmed down and was able to get some sleep. Around 0415 pt started waking up and mumbling/yelling to get up, which made his roommate return and both pts were mumbling/yelling back and forth for about an hour. This RN was unsuccessful at redirection. This RN silently observed the pt and put on a noise machine to help the pt calm down. Pt eventually fell back asleep at 0600. WCTM until end of this RNs shift.
[2024-07-12] MEDS: risperiDONE 0.25 mg Tablet 0.5 MG PO (08:46)
[2024-07-12] MEDS: aspirin 81 mg EC Tablet PO (08:46)
[2024-07-12] MEDS: haloperidol 1 mg Tablet PO (08:46)
[2024-07-12] MEDS: tamsulosin 0.4 mg Capsule PO (08:46)
--- NOTE | 2024-07-12 11:19 | P.NPUPN_ITS ---
Subjective NPU 2 Subjective: Patient presented today a little more subdued than yesterday. Ultimately he did respond well to questions with repeat questioning. He continues to be easily agitated at times and needs assistance getting him to take his medications. We discussed the importance of him finding a facility to get appropriate treatment and support and he seems to acknowledge that he will not be returning home to his brother's place. Mental Status Exam 2 MSE Comments: This is a underweight versus cachectic white male in hospital gown but mostly off of his body with poor grooming and eye contact. No abnormal movements except for psychomotor retardation. Cooperative with exam in no acute distress. Speech was normal rate, decreased volume and very dysarthric. Mood described as fine, affect subdued. Thought process linear. Thought content: Patient denied suicidal or homicidal ideation, there were no delusions reported or noted, he denied any auditory or visual hallucinations. Attention and concentration appeared mostly intact and memory was impaired but none were formally tested. He is alert and oriented times person and place. Insight and judgment are limited and impulse control impaired. Vitals/I&O/Wt Last Vital Signs Temp 97.6 F 07/12/24 00:00 Pulse 91 07/12/24 00:00 Resp 16 07/12/24 00:00 BP 142/77 07/12/24 00:00 Pulse Ox 97 07/12/24 00:00 O2 Del Method Room Air 07/12/24 00:00 07/11/24 07/12/24 07/12/24 22:59 06:59 14:59 Intake Total 360 / 490 0 / 490 120 / 120 Output Total 475 / 950 150 / 1100 Balance -115 / -460 -150 / -610 120 / 120 Weight last 48 hrs Weight 63.276 kg Weight 66.905 kg Physical Exam 2 Urinary Catheter Management: Lin: Cath Placed During This Visit: yes Reason for Continuing Indwelling Catheter: Acute Urinary Retention or Obstruction Urinary Catheter Date of Insertion: 07/02/24 Urinary Catheter Time of Insertion: 19:50 Data NPU 07/09/24 03:27 07/09/24 03:27 A&P Assessment and plan (1) Failure to thrive: (2) Renal insufficiency: (3) UTI (urinary tract infection): (4) Dementia: Plan This is a 74-year-old white male with a reported recent history of cognitive decline and memory difficulties who was being managed at his brother's home but returned secondary to medical complications and wandering likely secondary to his dementia and sundowning. 1. Continue current medication. Agree with current medications for agitation and aggression as well as dementia. 2. No identifiable need for acute inpatient geriatric care. 3. Agree that focus on managing his dementia including likely residential services necessary. 4. Recommend [facility] evaluation and proceeding with referral for care home. 5. Will continue to follow. Attestations NPU 2 Medical Necessity Statement*: N/A. Please see primary team note for medical necessity. But agree patient likely in need of 24-hour assistance. Coding Level of Care Code Acute Code for Chg Fwd Diagnoses Failure to thrive Renal insufficiency N28.9 UTI (urinary tract infection) N39.0 Dementia F03.90
--- NOTE | 2024-07-12 13:24 | P.PN_ITS ---
Subjective 2 Subjective: Seen this morning patient laying in bed. Not following any commands. Altered mental status. Does have a history of dementia. Sitter at bedside. Vitals/I&O/Wt Last Vital Signs Temp 97.6 F 07/12/24 00:00 Pulse 91 07/12/24 00:00 Resp 16 07/12/24 00:00 BP 142/77 07/12/24 00:00 Pulse Ox 97 07/12/24 00:00 O2 Del Method Room Air 07/12/24 00:00 07/11/24 07/12/24 07/12/24 22:59 06:59 14:59 Intake Total 360 / 490 0 / 490 1370 / 1370 Output Total 475 / 950 150 / 1100 Balance -115 / -460 -150 / -610 1370 / 1370 Weight last 48 hrs Weight 63.276 kg Weight 66.905 kg Physical Exam 2 Narrative: General: Laying in bed, confused. Cardiovascular: RRR. No gallops. Lungs: Clear to auscultation, no use of accessory muscles, no crackles or wheezes. Abdomen: Normal bowel sounds, abdomen soft and nontender. Extremities: No cyanosis or clubbing. Musculoskeletal: No swollen or erythematous joints. Neurological: There is movement of all 4 extremities. Urinary Catheter Management: Lin: Cath Placed During This Visit: yes Reason for Continuing Indwelling Catheter: Acute Urinary Retention or Obstruction Urinary Catheter Date of Insertion: 07/02/24 Urinary Catheter Time of Insertion: 19:50 Data 07/09/24 03:27 07/09/24 03:27 A&P Assessment and plan (1) Failure to thrive: Patient presents with failure to thrive in adult Probably will need placement PT/OT evaluation CM consult Medical history is still limited, request outside records from [facility] (2) Fall: Head CT negative for acute findings Fall precautions Neuroexam is limited due to mental status He may have deficits in the left upper extremity, will proceed with cervical neck CT and plain films of left upper extremity given he cannot provide pertinent feedback (3) Rigidity: He is noted to be quite rigid on exam, question underlying possible parkinsonian His movements can be further evaluated when he is more awake over the weekend Depending on clinical course and assessment, he may benefit from a neurology evaluation (4) UTI (urinary tract infection): Ux (06/20) w/ Enterobacter Urinalysis has improved Rotate to IV levofloxacin 500 mg for now (5) Acute urinary retention: Continue Lin catheter Continue Flomax (6) Renal insufficiency: Unknown renal baseline S/P 1 L IVF in ED Repeat labs in AM Plan DVT ppx: Heparin 07/03/24 Continue to monitor and continue current management. Need to follow-up case management on Friday for discharge planning 07/04/24 He is hemodynamically stable. Continue current management. Awaiting for discharge planning 07/05/24 He is medically stable. Blood cultures are negative so far. On IV Levaquin for UTI. Awaiting for discharge planning 07/06/24 Medically stable. Awaiting discharge planning. 07/07/24 Medically stable. Awaiting discharge planning meanwhile he is found to be agitated/own likely secondary to dementia. Started on Zyprexa 5 mg twice daily and Ativan 1 mg 3 times daily, Aricept 5 mg daily. 07/08/24 Will start him on risperidone 2.5 mg twice daily and decrease Zyprexa to 2.5 mg OD, continue Ativan 1 mg 3 times daily and Aricept 5 mg daily for agitation. Try to taper off Precedex drip this morning Continue to follow-up with case management for discharge planning to [facility]. 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 Transferred to medical floor for further management awaiting discharge planning 07/10/24 He is medically stable but confused and agitated. Follow-up psychiatry consult Had an episode of hypotension last night while transferring from bed to chair. Will discontinue Zyprexa. Continue risperidone, Aricept and Haldol. Will need case management for discharge planning. 07/11/24 He continues to be hemodynamically stable but confused and agitated likely secondary to dementia with behavioral disturbances. Follow-up case management in a.m. for discharge planning. 07/12/2024 -Patient awaiting placement ? Psychiatry consult appreciated. Continue current medications. ? Occupational Therapy assessment Assessment ordered. Attestations 2 Medical Necessity Statement*: Awaiting discharge planning Time Spent in Patient Care: 15 minutes Diagnoses Failure to thrive Fall W19.XXXA Rigidity R29.898 UTI (urinary tract infection) N39.0 Acute urinary retention R33.8 Renal insufficiency N28.9
--- NOTE | 2024-07-12 14:09 | CTR_ITS ---
PROCEDURE INFORMATION: Exam: CT Head Without Contrast Exam date and time: 07/12/2024 3:34 PM Age: 74 years old Clinical indication: Altered mental status/memory loss TECHNIQUE: Imaging protocol: Computed tomography of the head without contrast. Radiation optimization: All CT scans at this facility use at least one of these dose optimization techniques: automated exposure control; mA and/or kV adjustment per patient size (includes targeted exams where dose is matched to clinical indication); or iterative reconstruction. COMPARISON: CT head wo con* [id number] 07/02/2024 4:32 PM RADIATION DOSE METRICS: Total DLP (mGy-cm): 947.38 FINDINGS: Brain: No evidence of intra-axial or extra-axial hemorrhage within limitations of motion degradation. No mass effect or midline shift. Richardson-white differentiation is grossly maintained. Basilar cisterns are patent. Cerebral ventricles: No hydrocephalus. Paranasal sinuses: The visualized paranasal sinuses are well aerated. Mastoid air cells: The visualized mastoids and middle ears are clear. Bones: Calvarium is grossly intact within limitations of motion degradation. Soft tissues: No gross soft tissue abnormality. CT/CT head wo con* [id number] IMPRESSION: 1. No gross intracranial abnormality within limitations of motion degradation. Consider repeat exam when patient is able to cooperate.
[2024-07-12] MEDS: LORazepam 2 mg/mL INJ 1 mL 1 MG IM (16:09)
[2024-07-12 20:00] VITALS: BP 120/72; PULSE 94; RESP 18; TEMP 36.6; O2SAT 97
[2024-07-12] MEDS: donepezil 5 MG Tablet PO (22:02)
[2024-07-12 23:43] VITALS: BP 132/72; PULSE 76; RESP 18; TEMP 36.4; O2SAT 96
[2024-07-13 04:00] VITALS: BP 127/68; PULSE 90; RESP 18; TEMP 36.5; O2SAT 97
[2024-07-13] MEDS: LORazepam 2 mg/mL INJ 1 mL 1 MG IM ×3 (04:41→21:04)
[2024-07-13 08:35] VITALS: BP 117/68; PULSE 85; RESP 18; TEMP 36.5; O2SAT 98
--- NOTE | 2024-07-13 11:52 | P.PN_ITS ---
Subjective 2 Subjective: Seen this morning. Patient awake and answering some questions. Pleasantly confused. Did refuse blood draw again. Awaiting placement. Vitals/I&O/Wt Last Vital Signs Temp 97.7 F 07/13/24 08:35 Pulse 85 07/13/24 08:35 Resp 18 07/13/24 08:35 BP 117/68 07/13/24 08:35 Pulse Ox 98 07/13/24 08:35 O2 Del Method Room Air 07/13/24 08:35 07/12/24 07/13/24 07/13/24 22:59 06:59 14:59 Intake Total 120 / 1490 0 / 1490 Output Total 600 / 600 150 / 750 Balance -480 / 890 -150 / 740 Weight last 48 hrs Weight 64.501 kg Weight 63.276 kg Physical Exam 2 Narrative: General: Laying in bed, confused. Cardiovascular: RRR. No gallops. Lungs: Clear to auscultation, no use of accessory muscles, no crackles or wheezes. Abdomen: Normal bowel sounds, abdomen soft and nontender. Extremities: No cyanosis or clubbing. Musculoskeletal: No swollen or erythematous joints. Neurological: There is movement of all 4 extremities. Urinary Catheter Management: Lin: Cath Placed During This Visit: yes Reason for Continuing Indwelling Catheter: Chronic Indwelling Urinary Catheter on Admission Urinary Catheter Date of Insertion: 07/02/24 Urinary Catheter Time of Insertion: 19:50 Data 07/09/24 03:27 07/09/24 03:27 A&P Assessment and plan (1) Failure to thrive: Patient presents with failure to thrive in adult Probably will need placement PT/OT evaluation CM consult Medical history is still limited, request outside records from [facility] (2) Fall: Head CT negative for acute findings Fall precautions Neuroexam is limited due to mental status He may have deficits in the left upper extremity, will proceed with cervical neck CT and plain films of left upper extremity given he cannot provide pertinent feedback (3) Rigidity: He is noted to be quite rigid on exam, question underlying possible parkinsonian His movements can be further evaluated when he is more awake over the weekend Depending on clinical course and assessment, he may benefit from a neurology evaluation (4) UTI (urinary tract infection): Ux (06/20) w/ Enterobacter Urinalysis has improved Rotate to IV levofloxacin 500 mg for now (5) Acute urinary retention: Continue Lin catheter Continue Flomax (6) Renal insufficiency: Unknown renal baseline S/P 1 L IVF in ED Repeat labs in AM Plan DVT ppx: Heparin 07/03/24 Continue to monitor and continue current management. Need to follow-up case management on Friday for discharge planning 07/04/24 He is hemodynamically stable. Continue current management. Awaiting for discharge planning 07/05/24 He is medically stable. Blood cultures are negative so far. On IV Levaquin for UTI. Awaiting for discharge planning 07/06/24 Medically stable. Awaiting discharge planning. 07/07/24 Medically stable. Awaiting discharge planning meanwhile he is found to be agitated/sundowning likely secondary to dementia. Started on Zyprexa 5 mg twice daily and Ativan 1 mg 3 times daily, Aricept 5 mg daily. 07/08/24 Will start him on risperidone 2.5 mg twice daily and decrease Zyprexa to 2.5 mg OD, continue Ativan 1 mg 3 times daily and Aricept 5 mg daily for agitation. Try to taper off Precedex drip this morning Continue to follow-up with case management for discharge planning to [facility] versus senior living. 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 Transferred to medical floor for further management awaiting discharge planning 07/10/24 He is medically stable but confused and agitated. Follow-up psychiatry consult Had an episode of hypotension last night while transferring from bed to chair. Will discontinue Zyprexa. Continue risperidone, Aricept and Haldol. Will need case management for discharge planning. 07/11/24 He continues to be hemodynamically stable but confused and agitated likely secondary to dementia with behavioral disturbances. Follow-up case management in a.m. for discharge planning. 07/12/2024 -Patient awaiting placement ? Psychiatry consult appreciated. Continue current medications. ? Occupational Therapy assessment Assessment ordered. 07/13/2024 -Patient awaiting placement. Hemodynamically stable. ? Psychiatry consult appreciated. Continue current medications. ? Occupational Therapy on board. Patient is a max assist. Attestations 2 Medical Necessity Statement*: Awaiting discharge planning Diagnoses Failure to thrive Fall W19.XXXA Rigidity R29.898 UTI (urinary tract infection) N39.0 Acute urinary retention R33.8 Renal insufficiency N28.9
[2024-07-13 15:44] VITALS: BP 146/78; PULSE 94; RESP 17; TEMP 36.5; O2SAT 95
--- NOTE | 2024-07-13 16:08 | PC.OT ---
OT ANJALI EVALUATION ATTEMPTED AND PATIENT IS UNABLE TO PARTICIPATE; HARDLY OPENS HIS EYES AND DOES NOT GIVE HIS . DOES SHAKE THE THERAPISTS HAND.
[2024-07-13 19:57] VITALS: BP 138/79; PULSE 97; RESP 17; TEMP 36.6; O2SAT 99
[2024-07-13] MEDS: heparin 5,000 unit/mL INJ 1 mL 5000 UNIT SUBCUT (20:30)
[2024-07-14 04:00] VITALS: BP 112/86; PULSE 99; RESP 20; TEMP 36.3; O2SAT 98
[2024-07-14 07:54] VITALS: BP 127/74; PULSE 68; RESP 16; TEMP 36.8; O2SAT 93
[2024-07-14] MEDS: LORazepam 2 mg/mL INJ 1 mL 1 MG IM ×2 (11:02→23:40)
--- NOTE | 2024-07-14 13:53 | P.PN_ITS ---
Subjective 2 Subjective: Seen this morning. Patient laying in bed. Does open his eyes occasionally. Has been asleep since 7 AM as per bedside sitter. Will not answer any questions or follow any commands. Have been unable to contact family. From documentation it seems patient does have progressively worsening dementia already present at home. Patient was as Linzess at home which is nonformulary. He has not had a bowel movement since admission. Vitals/I&O/Wt Last Vital Signs Temp 98.2 F 07/14/24 07:54 Pulse 68 07/14/24 07:54 Resp 16 07/14/24 07:54 BP 127/74 07/14/24 07:54 Pulse Ox 93 07/14/24 07:54 O2 Del Method Room Air 07/14/24 07:54 07/13/24 07/14/24 07/14/24 22:59 06:59 14:59 Intake Total 0 / 0 0 / 0 Output Total 400 / 400 Balance -400 / -400 0 / -400 Weight last 48 hrs Weight 64.501 kg Physical Exam 2 Narrative: General: Laying in bed, confused. Cardiovascular: RRR. No gallops. Lungs: Clear to auscultation, no use of accessory muscles, no crackles or wheezes. Abdomen: Normal bowel sounds, abdomen soft and nontender. Extremities: No cyanosis or clubbing. Musculoskeletal: No swollen or erythematous joints. Neurological: There is movement of all 4 extremities. Urinary Catheter Management: Lin: Cath Placed During This Visit: yes Reason for Continuing Indwelling Catheter: Acute Urinary Retention or Obstruction Urinary Catheter Date of Insertion: 07/02/24 Urinary Catheter Time of Insertion: 19:50 Data 07/09/24 03:27 07/09/24 03:27 A&P Assessment and plan (1) Failure to thrive: Patient presents with failure to thrive in adult Probably will need placement PT/OT evaluation CM consult Medical history is still limited, request outside records from [facility] (2) Fall: Head CT negative for acute findings Fall precautions Neuroexam is limited due to mental status He may have deficits in the left upper extremity, will proceed with cervical neck CT and plain films of left upper extremity given he cannot provide pertinent feedback (3) Rigidity: He is noted to be quite rigid on exam, question underlying possible parkinsonian His movements can be further evaluated when he is more awake over the weekend Depending on clinical course and assessment, he may benefit from a neurology evaluation (4) UTI (urinary tract infection): Ux (06/20) w/ Enterobacter Urinalysis has improved Rotate to IV levofloxacin 500 mg for now (5) Acute urinary retention: Continue Lin catheter Continue Flomax (6) Renal insufficiency: Unknown renal baseline S/P 1 L IVF in ED Repeat labs in AM Plan DVT ppx: Heparin 07/03/24 Continue to monitor and continue current management. Need to follow-up case management on Friday for discharge planning 07/04/24 He is hemodynamically stable. Continue current management. Awaiting for discharge planning 07/05/24 He is medically stable. Blood cultures are negative so far. On IV Levaquin for UTI. Awaiting for discharge planning 07/06/24 Medically stable. Awaiting discharge planning. 07/07/24 Medically stable. Awaiting discharge planning meanwhile he is found to be agitated/own likely secondary to dementia. Started on Zyprexa 5 mg twice daily and Ativan 1 mg 3 times daily, Aricept 5 mg daily. 07/08/24 Will start him on risperidone 2.5 mg twice daily and decrease Zyprexa to 2.5 mg OD, continue Ativan 1 mg 3 times daily and Aricept 5 mg daily for agitation. Try to taper off Precedex drip this morning Continue to follow-up with case management for discharge planning to [facility] versus group home. 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 Transferred to medical floor for further management awaiting discharge planning 07/10/24 He is medically stable but confused and agitated. Follow-up psychiatry consult Had an episode of hypotension last night while transferring from bed to chair. Will discontinue Zyprexa. Continue risperidone, Aricept and Haldol. Will need case management for discharge planning. 07/11/24 He continues to be hemodynamically stable but confused and agitated likely secondary to dementia with behavioral disturbances. Follow-up case management in a.m. for discharge planning. 07/12/2024 -Patient awaiting placement ? Psychiatry consult appreciated. Continue current medications. ? Occupational Therapy assessment Assessment ordered. 07/13/2024 -Patient awaiting placement. Hemodynamically stable. ? Psychiatry consult appreciated. Continue current medications. ? Occupational Therapy on board. Patient is a max assist. 07/14/2024 - Patient awaiting placement. Hemodynamically stable. ? Psychiatry consult appreciated. Continue current medications. ? Occupational Therapy on board. Patient is a max assist. -Check blood cultures sputum culture urine culture ammonia CRP CBC CMP phosphorus TSH vitamin B12 today. Patient does not have capacity to make decisions at this time. Must rule out metabolic encephalopathy. Will obtain above labs complete medical workup and if negative will pursue psychiatric treatment. Discussed with Dr. Ruelas regarding adjusting medications. Discussed with them regarding the need for [facility] facility?. I will stop Haldol oral at this time. -He has not had a bowel movement since admission. Patient is on Linzess at home. Unable to contact family to obtain it for inpatient use. Discussed with pharmacy here and we will order that for him. ? Patient was given lactulose earlier but he spit it at the nurses. Will place her on docusate senna 100 mg tablet twice a day scheduled. Hopefully he can take her oral medications. ? I will plan to add Depakote 250 oral daily today. Attestations 2 Medical Necessity Statement*: Awaiting discharge planning Diagnoses Failure to thrive Fall W19.XXXA Rigidity R29.898 UTI (urinary tract infection) N39.0 Acute urinary retention R33.8 Renal insufficiency N28.9
[2024-07-14 15:44] VITALS: BP 133/82; PULSE 92; RESP 16; TEMP 36.7; O2SAT 96
--- NOTE | 2024-07-14 16:11 | PC.OT ---
OT TREATMENT AND ANJALI TEST ATTEMPTED AGAIN THIS P.M. PATIENT DOES NOT RESPOND TO THERAPIST AT ALL. UNABLE TO COMPLETE ANJALI EVALUATION AT THIS TIME.
--- NOTE | 2024-07-14 17:59 | P.NPUPN_ITS ---
Subjective NPU 2 Subjective: Patient presented today minus communicative than his initial evaluation with this gag writer and even the second day he was seen. Talk with staff and they endorse that he has clear agitation that happens at times of engagement like meals etc. This gag writer has seen periods where he is resistant but not aggressive. Discussed with the treatment team starting to take away some of his medications that might be clouding his sensorium and try to get collateral information to really appreciate what his trajectory has been. Mental Status Exam 2 MSE Comments: This is a underweight versus cachectic white male in hospital gown but mostly off of his body with poor grooming and eye contact. No abnormal movements except for psychomotor retardation. Cooperative with exam in no acute distress. Speech was normal rate, decreased volume and very dysarthric. Mood described as fine, affect subdued. Thought process linear. Thought content: Patient denied suicidal or homicidal ideation, there were no delusions reported or noted, he denied any auditory or visual hallucinations. Attention and concentration appeared mostly intact and memory was impaired but none were formally tested. He is alert and oriented times person and place. Insight and judgment are limited and impulse control impaired. Vitals/I&O/Wt Last Vital Signs Temp 98.1 F 07/14/24 15:44 Pulse 92 07/14/24 15:44 Resp 16 07/14/24 15:44 BP 133/82 07/14/24 15:44 Pulse Ox 96 07/14/24 15:44 O2 Del Method Room Air 07/14/24 15:44 07/14/24 07/14/24 07/14/24 06:59 14:59 22:59 Intake Total 0 / 0 Balance 0 / -400 Weight last 48 hrs Weight 64.501 kg Physical Exam 2 Urinary Catheter Management: Lin: Cath Placed During This Visit: yes Reason for Continuing Indwelling Catheter: Acute Urinary Retention or Obstruction Urinary Catheter Date of Insertion: 07/02/24 Urinary Catheter Time of Insertion: 19:50 Data NPU 07/14/24 21:20 07/14/24 21:20 Micro: Microbiology 07/14/24 14:51 Blood Culture - Preliminary Blood SPECIMEN COLLECTED Microbiology 07/14/24 14:51 Blood Blood Culture - Preliminary SPECIMEN COLLECTED A&P Assessment and plan (1) Failure to thrive: (2) Renal insufficiency: (3) UTI (urinary tract infection): (4) Dementia: Plan This is a 74-year-old white male with a reported recent history of cognitive decline and memory difficulties who was being managed at his brother's home but returned secondary to medical complications and wandering likely secondary to his dementia and sundowning. 1. Continue current medication. Agree with current medications for agitation and aggression as well as dementia. 2. No identifiable need for acute inpatient geriatric care. 3. Agree that focus on managing his dementia including likely residential services necessary. 4. Recommend ANJALI evaluation and proceeding with referral for retirement. 5. Will continue to follow. Attestations NPU 2 Medical Necessity Statement*: N/A. Please see primary team note for medical necessity. But agree patient likely in need of 24-hour assistance. Coding Level of Care Code Acute Code for Chg Fwd Diagnoses Failure to thrive Renal insufficiency N28.9 UTI (urinary tract infection) N39.0 Dementia F03.90
[2024-07-14 20:00] VITALS: BP 123/72; PULSE 93; RESP 18; TEMP 36.8; O2SAT 97
[2024-07-14] MEDS: heparin 5,000 unit/mL INJ 1 mL 5000 UNIT SUBCUT (20:32)
[2024-07-14 21:33] LABS: Basophils % 0.2 %; Eosinophils % 0.2 %; Hematocrit 43.3 % (37-53); Lymphocytes # 0.7 10^3/uL (0.8-4.8); Lymphocytes % 6.8 %; Mean Platelet Volume 10.5 fL (7.4-10.4); Neutrophils # 8.13 10^3/uL (1.8-7.7); Neutrophils % 82.4 %; Nucleated Red Blood Cells % 0 %; Platelet Count 195 10^3/cmm (157-399); Red Blood Count 4.76 10^6/uL (3.85-5.65); Red Cell Distribution Width 13.4 % (12.1-15.1); White Blood Count 9.87 10^3/uL (3.29-11.43)
[2024-07-14 21:51] LABS: Alanine Aminotransferase 42 U/L (0-41); Albumin Level 3.6 g/dL (3.5-5.2); Alkaline Phosphatase 73 U/L (40-130); Anion Gap 17.6 (5-19); Aspartate Amino Transferase 75 U/L (0-40); Blood Urea Nitrogen 36 mg/dL (8-23); C Reactive Protein 144.1 mg/L (0.0-4.9); Calcium 9.6 mg/dL (8.5-10.5); Carbon Dioxide 25 mmol/L (22-29); Chloride 103 mmol/L (98-107); Globulin 3.3 g/dL (1.3-4.6); Glucose 113 mg/dL (65-115); Osmolality Calculated 301 mOsm/kg (285-295); Phosphorus 3.4 mg/dL (2.5-4.5); Potassium 4.6 mmol/L (3.5-5.1); Sodium 141 mmol/L (136-145); Total Bilirubin 0.5 mg/dL (0.15-1.2); Total Protein 6.9 g/dL (6.6-8.7)
[2024-07-14 21:52] LABS: Ammonia 30 umol/L (16-60)
[2024-07-14 23:59] VITALS: BP 117/71; PULSE 89; RESP 19; TEMP 36.5; O2SAT 96
[2024-07-15 00:06] LABS: Vitamin B12 662 pg/mL (232-1245)
[2024-07-15 01:04] LABS: Thyroid Stimulating Hormone 4.26 uIU/mL (0.27-4.20)
[2024-07-15 08:05] VITALS: BP 142/83; PULSE 87; RESP 16; TEMP 36.4; O2SAT 97
[2024-07-15] MEDS: timolol 0.5% Op Soln 5 mL Btl 1 DROP EYE-BOTH (08:47)
[2024-07-15] MEDS: heparin 5,000 unit/mL INJ 1 mL 5000 UNIT SUBCUT ×2 (08:48→22:37)
--- NOTE | 2024-07-15 10:34 | PC.NURSE ---
Patient is not responding to verbal or touch stimuli. He is not aggitated or having any adverse behaviors at this time. Ativan discontinued per physicians verbal order.
[2024-07-15] MEDS: levofloxacin-dextrose 5 % 750 MG/150 ML PREMIX 100 MG IV (12:31)
[2024-07-15 12:34] VITALS: BP 122/75; PULSE 96; RESP 16; TEMP 36.5; O2SAT 96
--- NOTE | 2024-07-15 12:44 | PM.PN ---
Subjective Subjective: Urine culture positive for staph species greater than 100,000 colonies. Labs reviewed. Patient altered. Requiring a sitter. Vitals/I&O/Wt Last Vital Signs Temp 97.6 F 07/15/24 08:05 Pulse 87 07/15/24 08:05 Resp 16 07/15/24 08:05 BP 142/83 07/15/24 08:05 Pulse Ox 97 07/15/24 08:05 O2 Del Method Room Air 07/15/24 08:05 07/14/24 07/15/24 07/15/24 22:59 06:59 14:59 Output Total 650 / 650 Balance -650 / -650 Weight last 48 hrs Weight 63.185 kg Physical Exam Narrative: General: Laying in bed, confused. Cardiovascular: RRR. No gallops. Lungs: Clear to auscultation, no use of accessory muscles, no crackles or wheezes. Abdomen: Normal bowel sounds, abdomen soft and nontender. Extremities: No cyanosis or clubbing. Musculoskeletal: No swollen or erythematous joints. Neurological: There is movement of all 4 extremities. Urinary Catheter Management: Lin: Cath Placed During This Visit: yes Reason for Continuing Indwelling Catheter: Acute Urinary Retention or Obstruction Urinary Catheter Date of Insertion: 07/02/24 Urinary Catheter Time of Insertion: 19:50 Data 07/14/24 21:20 07/14/24 21:20 Micro: Microbiology 07/14/24 15:43 Urine Culture - Preliminary Urine Catheterized Coag negative Staphylococcus 07/14/24 21:20 Blood Culture - Preliminary Blood SPECIMEN COLLECTED 07/14/24 14:51 Blood Culture - Preliminary Blood SPECIMEN COLLECTED A&P Assessment and plan (1) Failure to thrive: Patient presents with failure to thrive in adult Probably will need placement PT/OT evaluation CM consult Medical history is still limited, request outside records from [facility] (2) Fall: Head CT negative for acute findings Fall precautions Neuroexam is limited due to mental status He may have deficits in the left upper extremity, will proceed with cervical neck CT and plain films of left upper extremity given he cannot provide pertinent feedback (3) Rigidity: He is noted to be quite rigid on exam, question underlying possible parkinsonian His movements can be further evaluated when he is more awake over the weekend Depending on clinical course and assessment, he may benefit from a neurology evaluation (4) UTI (urinary tract infection): Ux (06/20) w/ Enterobacter Urinalysis has improved Rotate to IV levofloxacin 500 mg for now (5) Acute urinary retention: Continue Lin catheter Continue Flomax (6) Renal insufficiency: Unknown renal baseline S/P 1 L IVF in ED Repeat labs in AM Plan DVT ppx: Heparin 07/03/24 Continue to monitor and continue current management. Need to follow-up case management on Friday for discharge planning 07/04/24 He is hemodynamically stable. Continue current management. Awaiting for discharge planning 07/05/24 He is medically stable. Blood cultures are negative so far. On IV Levaquin for UTI. Awaiting for discharge planning 07/06/24 Medically stable. Awaiting discharge planning. 07/07/24 Medically stable. Awaiting discharge planning meanwhile he is found to be agitated/sundowning likely secondary to dementia. Started on Zyprexa 5 mg twice daily and Ativan 1 mg 3 times daily, Aricept 5 mg daily. 07/08/24 Will start him on risperidone 2.5 mg twice daily and decrease Zyprexa to 2.5 mg OD, continue Ativan 1 mg 3 times daily and Aricept 5 mg daily for agitation. Try to taper off Precedex drip this morning Continue to follow-up with case management for discharge planning to [facility] versus care home. 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 Transferred to medical floor for further management awaiting discharge planning 07/10/24 He is medically stable but confused and agitated. Follow-up psychiatry consult Had an episode of hypotension last night while transferring from bed to chair. Will discontinue Zyprexa. Continue risperidone, Aricept and Haldol. Will need case management for discharge planning. 07/11/24 He continues to be hemodynamically stable but confused and agitated likely secondary to dementia with behavioral disturbances. Follow-up case management in a.m. for discharge planning. 07/12/2024 -Patient awaiting placement ? Psychiatry consult appreciated. Continue current medications. ? Occupational Therapy assessment Assessment ordered. 07/13/2024 -Patient awaiting placement. Hemodynamically stable. ? Psychiatry consult appreciated. Continue current medications. ? Occupational Therapy on board. Patient is a max assist. 07/14/2024 - Patient awaiting placement. Hemodynamically stable. ? Psychiatry consult appreciated. Continue current medications. ? Occupational Therapy on board. Patient is a max assist. -Check blood cultures sputum culture urine culture ammonia CRP CBC CMP phosphorus TSH vitamin B12 today. Patient does not have capacity to make decisions at this time. Must rule out metabolic encephalopathy. Will obtain above labs complete medical workup and if negative will pursue psychiatric treatment. Discussed with Dr. Ruelas regarding adjusting medications. Discussed with them regarding the need for [facility] facility?. I will stop Haldol oral at this time. -He has not had a bowel movement since admission. Patient is on Linzess at home. Unable to contact family to obtain it for inpatient use. Discussed with pharmacy here and we will order that for him. ? Patient was given lactulose earlier but he spit it at the nurses. Will place her on docusate senna 100 mg tablet twice a day scheduled. Hopefully he can take her oral medications. ? I will plan to add Depakote 250 oral daily today. 07/15/2024 -Await psychiatric recommendations ? OT on board patient max assist ? Blood cultures pending ? Urine culture positive for staphylococcal species ? Will go ahead and treat for UTI. start levofloxacin 750 daily -Once UTI has been treated will need to assess mental status. ? He definitely has component of hospital-acquired delirium on underlying dementia ? We would need to completely treat medical causes prior to pursuing any kind of guardianship. ? Stop Ativan. ? Stop risperidone. Continue Depakote 250 bedtime. ? Continue Linzess. ? No family available at bedside. Attestations Medical Necessity Statement*: uti altered mental status Diagnoses Failure to thrive Fall W19.XXXA Rigidity R29.898 UTI (urinary tract infection) N39.0 Acute urinary retention R33.8 Renal insufficiency N28.9
--- NOTE | 2024-07-15 15:36 | PC.OT ---
ANJALI TEST HAS BEEN ATTEMPTED ON MULTIPLE OCCASIONS BUT PATIENT IS NOT ALERT ENOUGH TO ACTIVELY PARTICIPATE. D/C ORDER FOR ANJALI UNTIL PATIENT IS ABLE TO ACTIVELY PARTICIPATE.
[2024-07-15 16:04] VITALS: BP 134/82; PULSE 95; RESP 16; TEMP 36.5; O2SAT 94
--- NOTE | 2024-07-15 17:07 | PC.OT ---
Per nursing, pt. not appropriate for OT treatment at this time.
[2024-07-15 20:00] VITALS: BP 114/66; PULSE 105; RESP 16; TEMP 36.2; O2SAT 96
--- NOTE | 2024-07-15 20:55 | PC.NURSE ---
patient in bed with eyes open at this time, unable to answer questions. lung sounds clear bilaterally, bowel sounds present. patient is non-combative and non-verbal at this time
[2024-07-15] MEDS: divalproex ER 250 mg Tablet (24H) PO (22:33)
[2024-07-16] VITALS: BP 125/79; PULSE 78; RESP 19; TEMP 37; O2SAT 94
[2024-07-16] MEDS: morphine 4 mg/mL SDV 1 mL 2 MG IVP (01:04)
--- NOTE | 2024-07-16 01:26 | PC.NURSE ---
patient screaming out in pain, dr notified. 2mg ivp morphine q12 hours prn ordered.
--- NOTE | 2024-07-16 01:27 | PC.NURSE ---
2mg ivp morphine given for pain. patient resting in his bed with eyes open very calm and quiet. will assess again in an hour
[2024-07-16 04:00] VITALS: BP 118/66; PULSE 92; RESP 15; TEMP 36.4; O2SAT 95
--- NOTE | 2024-07-16 07:10 | PC.NURSE ---
patient getting very adgitated, dr notified with no response st this time.
[2024-07-16] MEDS: risperiDONE 0.25 mg Tablet 0.5 MG PO (08:49)
[2024-07-16] MEDS: heparin 5,000 unit/mL INJ 1 mL 5000 UNIT SUBCUT ×2 (08:50→22:06)
[2024-07-16] MEDS: tamsulosin 0.4 mg Capsule PO (08:50)
[2024-07-16] MEDS: levofloxacin-dextrose 5 % 750 MG/150 ML PREMIX 100 MG IV (10:32)
--- NOTE | 2024-07-16 12:32 | PM.PN ---
Subjective Subjective: seen this morning no acute events overnight he is has been spitting out his tablets. but did take the first two given to him he is confused, he has still not had a bowel movement since admission, we have not able to obtain his linzess yet on abx for UTI he is not eating well. at times will spit out pudding. Vitals/I&O/Wt Last Vital Signs Temp 97.5 F L 07/16/24 04:00 Pulse 92 07/16/24 04:00 Resp 15 07/16/24 04:00 BP 118/66 07/16/24 04:00 Pulse Ox 95 07/16/24 04:00 O2 Del Method Room Air 07/16/24 04:00 07/15/24 07/16/24 07/16/24 22:59 06:59 14:59 Intake Total 0 / 150 Output Total 100 / 100 Balance 0 / 150 -100 / 50 Weight last 48 hrs Weight 62.414 kg Weight 63.185 kg Physical Exam Narrative: General: Laying in bed, confused. Cardiovascular: RRR. No gallops. Lungs: Clear to auscultation, no use of accessory muscles, no crackles or wheezes. Abdomen: Normal bowel sounds, abdomen soft and nontender. Extremities: No cyanosis or clubbing. Musculoskeletal: No swollen or erythematous joints. Neurological: There is movement of all 4 extremities. Urinary Catheter Management: Lin: Cath Placed During This Visit: yes Reason for Continuing Indwelling Catheter: Acute Urinary Retention or Obstruction Urinary Catheter Date of Insertion: 07/02/24 Urinary Catheter Time of Insertion: 19:50 Data 07/14/24 21:20 07/14/24 21:20 Micro: Microbiology 07/14/24 15:43 Urine Culture - Preliminary Urine Catheterized Coag negative Staphylococcus 07/14/24 21:20 Blood Culture - Preliminary Blood NEGATIVE TO DATE 07/14/24 14:51 Blood Culture - Preliminary Blood NEGATIVE TO DATE A&P Assessment and plan (1) Failure to thrive: Patient presents with failure to thrive in adult Probably will need placement PT/OT evaluation CM consult Medical history is still limited, request outside records from [facility] (2) Fall: Head CT negative for acute findings Fall precautions Neuroexam is limited due to mental status He may have deficits in the left upper extremity, will proceed with cervical neck CT and plain films of left upper extremity given he cannot provide pertinent feedback (3) Rigidity: He is noted to be quite rigid on exam, question underlying possible parkinsonian His movements can be further evaluated when he is more awake over the weekend Depending on clinical course and assessment, he may benefit from a neurology evaluation (4) UTI (urinary tract infection): Ux (06/20) w/ Enterobacter Urinalysis has improved Rotate to IV levofloxacin 500 mg for now (5) Acute urinary retention: Continue Lin catheter Continue Flomax (6) Renal insufficiency: Unknown renal baseline S/P 1 L IVF in ED Repeat labs in AM Plan DVT ppx: Heparin 07/03/24 Continue to monitor and continue current management. Need to follow-up case management on Friday for discharge planning 07/04/24 He is hemodynamically stable. Continue current management. Awaiting for discharge planning 07/05/24 He is medically stable. Blood cultures are negative so far. On IV Levaquin for UTI. Awaiting for discharge planning 07/06/24 Medically stable. Awaiting discharge planning. 07/07/24 Medically stable. Awaiting discharge planning meanwhile he is found to be agitated/sundowning likely secondary to dementia. Started on Zyprexa 5 mg twice daily and Ativan 1 mg 3 times daily, Aricept 5 mg daily. 07/08/24 Will start him on risperidone 2.5 mg twice daily and decrease Zyprexa to 2.5 mg OD, continue Ativan 1 mg 3 times daily and Aricept 5 mg daily for agitation. Try to taper off Precedex drip this morning Continue to follow-up with case management for discharge planning to [facility] versus shelter. 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 Transferred to medical floor for further management awaiting discharge planning 07/10/24 He is medically stable but confused and agitated. Follow-up psychiatry consult Had an episode of hypotension last night while transferring from bed to chair. Will discontinue Zyprexa. Continue risperidone, Aricept and Haldol. Will need case management for discharge planning. 07/11/24 He continues to be hemodynamically stable but confused and agitated likely secondary to dementia with behavioral disturbances. Follow-up case management in a.m. for discharge planning. 07/12/2024 -Patient awaiting placement ? Psychiatry consult appreciated. Continue current medications. ? Occupational Therapy assessment Assessment ordered. 07/13/2024 -Patient awaiting placement. Hemodynamically stable. ? Psychiatry consult appreciated. Continue current medications. ? Occupational Therapy on board. Patient is a max assist. 07/14/2024 - Patient awaiting placement. Hemodynamically stable. ? Psychiatry consult appreciated. Continue current medications. ? Occupational Therapy on board. Patient is a max assist. -Check blood cultures sputum culture urine culture ammonia CRP CBC CMP phosphorus TSH vitamin B12 today. Patient does not have capacity to make decisions at this time. Must rule out metabolic encephalopathy. Will obtain above labs complete medical workup and if negative will pursue psychiatric treatment. Discussed with Dr. Ruelas regarding adjusting medications. Discussed with them regarding the need for [facility] facility?. I will stop Haldol oral at this time. -He has not had a bowel movement since admission. Patient is on Linzess at home. Unable to contact family to obtain it for inpatient use. Discussed with pharmacy here and we will order that for him. ? Patient was given lactulose earlier but he spit it at the nurses. Will place her on docusate senna 100 mg tablet twice a day scheduled. Hopefully he can take her oral medications. ? I will plan to add Depakote 250 oral daily today. 07/15/2024 -Await psychiatric recommendations ? OT on board patient max assist ? Blood cultures pending ? Urine culture positive for staphylococcal species ? Will go ahead and treat for UTI. start levofloxacin 750 daily -Once UTI has been treated will need to assess mental status. ? He definitely has component of hospital-acquired delirium on underlying dementia ? We would need to completely treat medical causes prior to pursuing any kind of guardianship. ? Stop Ativan. ? Stop risperidone. Continue Depakote 250 bedtime. ? Continue Linzess. ? No family available at bedside. 07/16/2024 - -Await psychiatric recommendations ? OT on board patient max assist ? Blood cultures pending ? Urine culture positive for staphylococcal species ? continue to treat for UTI. start levofloxacin 750 daily - check mri brain w/o contrast today to r/o stroke, ativan 2 mg prior to study. - continue risperidone and depakote. continue linzess Attestations Medical Necessity Statement*: uti altered mental status Diagnoses Failure to thrive Fall W19.XXXA Rigidity R29.898 UTI (urinary tract infection) N39.0 Acute urinary retention R33.8 Renal insufficiency N28.9
--- NOTE | 2024-07-16 12:40 | MRR_ITS ---
PROCEDURE INFORMATION: Exam: MR Head Without Contrast Exam date and time: 07/16/2024 4:48 PM Age: 74 years old Clinical indication: Altered mental status/memory loss; Confusion or disorientation; Additional info: R/O stroke TECHNIQUE: Imaging protocol: Magnetic resonance imaging of the head without contrast. COMPARISON: CT head wo con* [id number] 07/12/2024 3:34 PM FINDINGS: Brain: There is diffuse cortical atrophy with disproportionate temporal lobe atrophy. Mildly scattered periventricular white matter hyperintensities are identified. There is no evidence of acute parenchymal hemorrhage, extra-axial collection, or acute infarction. There is no mass effect, midline shift, or downward herniation. Cerebral ventricles: Normal. No ventriculomegaly. Bones: Unremarkable. Paranasal sinuses: Normal as visualized. No acute sinusitis. Mastoid air cells: Normal as visualized. No mastoid effusion. Orbital cavities: Unremarkable. Soft tissues: Unremarkable. MR/MR head wo con* [id number] IMPRESSION: 1. No evidence of acute intracranial process. 2. Disproportionate temporal lobe atrophy. 3. Mild small vessel disease.
[2024-07-16] MEDS: LORazepam 2 mg/mL INJ 1 mL IVP (13:06)
--- NOTE | 2024-07-16 13:34 | PC.OT ---
OT treatment attempted with patient unable to follow basic commands; will attempt again at later time.
--- NOTE | 2024-07-16 15:35 | PC.NURSE ---
Patient has had no adverse behaviors this shift so far. Pleasantly confused at this time.
[2024-07-16 20:00] VITALS: BP 133/91; PULSE 103; RESP 15; TEMP 36.6; O2SAT 100
[2024-07-17] VITALS: BP 113/65; PULSE 97; RESP 16; TEMP 36.6; O2SAT 95
[2024-07-17 04:00] VITALS: BP 123/81; PULSE 100; RESP 19; TEMP 36.4; O2SAT 94
[2024-07-17 08:00] VITALS: BP 143/53; PULSE 102; RESP 24; O2SAT 96
[2024-07-17] MEDS: heparin 5,000 unit/mL INJ 1 mL 5000 UNIT SUBCUT ×2 (08:44→20:53)
[2024-07-17 11:18] VITALS: BP 119/79; PULSE 92; RESP 14; TEMP 36.7; O2SAT 97
[2024-07-17] MEDS: levofloxacin-dextrose 5 % 750 MG/150 ML PREMIX 100 MG IV (12:11)
--- NOTE | 2024-07-17 13:25 | PM.PN ---
Subjective Subjective: Patient is confused and has been refusing care. He is refusing several of his oral medications. He has not had a bowel movement since admission. Has spit out medications at nurses including lactulose that was attempted. 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 He gets agitated combative and starts spitting out medications at nurses. Very difficult to deal with. He is also had very poor oral intake. At most he will take a spoon of pudding. Has required a sitter at bedside. Does not follow commands or answer any questions. Has waxing and waning mental status. At times will swear at the nurses however at other times will lay there. Able to move all 4 extremities. MRI brain obtained ruled out a stroke. No swallowing impairment. Able to swallow when wants to swallow. In periods of agitation he will start pulling at his Lin catheter and pulling out IV. I attempted to reach out to family today however was unable to get a hold of anybody and left a voicemail to call back. On admission it was reported by brother that patient has been having recurrent falls and inability to care for himself. He was arousable to stimulation but did not offer any pertinent history. Brother provided the history. Patient has been suffering from progressively worsening confusion. Symptoms are worse at night. He has started to wander and patient is difficult to control. He gets agitated and has produced transient hematuria at times. Most likely has underlying dementia. There is a strong family history of dementia Alzheimer's type. Vitals/I&O/Wt Last Vital Signs Temp 98.0 F 07/17/24 11:18 Pulse 92 07/17/24 11:18 Resp 14 07/17/24 11:18 BP 119/79 07/17/24 11:18 Pulse Ox 97 07/17/24 11:18 O2 Del Method Room Air 07/17/24 11:18 07/16/24 07/17/24 07/17/24 22:59 06:59 14:59 Output Total 850 / 850 Balance -850 / -700 Weight last 48 hrs Weight 57.924 kg Weight 62.414 kg Physical Exam Narrative: General: Laying in bed, confused. Cardiovascular: RRR. No gallops. Lungs: Clear to auscultation, no use of accessory muscles, no crackles or wheezes. Abdomen: Normal bowel sounds, abdomen soft and nontender. Extremities: No cyanosis or clubbing. Able to move all 4 extremities. Urinary Catheter Management: Lin: Cath Placed During This Visit: yes Reason for Continuing Indwelling Catheter: Chronic Indwelling Urinary Catheter on Admission Urinary Catheter Date of Insertion: 07/02/24 Urinary Catheter Time of Insertion: 19:50 Data 07/14/24 21:20 07/14/24 21:20 Micro: Microbiology 07/14/24 15:43 Urine Culture - Preliminary Urine Catheterized Coag negative Staphylococcus A&P Assessment and plan (1) Failure to thrive: Patient presents with failure to thrive in adult Probably will need placement PT/OT evaluation CM consult Medical history is still limited, request outside records from [facility] (2) Fall: Head CT negative for acute findings Fall precautions Neuroexam is limited due to mental status He may have deficits in the left upper extremity, will proceed with cervical neck CT and plain films of left upper extremity given he cannot provide pertinent feedback (3) Rigidity: He is noted to be quite rigid on exam, question underlying possible parkinsonian His movements can be further evaluated when he is more awake over the weekend Depending on clinical course and assessment, he may benefit from a neurology evaluation (4) UTI (urinary tract infection): Ux (06/20) w/ Enterobacter Urinalysis has improved Rotate to IV levofloxacin 500 mg for now (5) Acute urinary retention: Continue Lin catheter Continue Flomax (6) Renal insufficiency: Unknown renal baseline S/P 1 L IVF in ED Repeat labs in AM Plan DVT ppx: Heparin 07/03/24 Continue to monitor and continue current management. Need to follow-up case management on Friday for discharge planning 07/04/24 He is hemodynamically stable. Continue current management. Awaiting for discharge planning 07/05/24 He is medically stable. Blood cultures are negative so far. On IV Levaquin for UTI. Awaiting for discharge planning 07/06/24 Medically stable. Awaiting discharge planning. 07/07/24 Medically stable. Awaiting discharge planning meanwhile he is found to be agitated/sundowning likely secondary to dementia. Started on Zyprexa 5 mg twice daily and Ativan 1 mg 3 times daily, Aricept 5 mg daily. 07/08/24 Will start him on risperidone 2.5 mg twice daily and decrease Zyprexa to 2.5 mg OD, continue Ativan 1 mg 3 times daily and Aricept 5 mg daily for agitation. Try to taper off Precedex drip this morning Continue to follow-up with case management for discharge planning to [facility] versus correction. 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 Transferred to medical floor for further management awaiting discharge planning 07/10/24 He is medically stable but confused and agitated. Follow-up psychiatry consult Had an episode of hypotension last night while transferring from bed to chair. Will discontinue Zyprexa. Continue risperidone, Aricept and Haldol. Will need case management for discharge planning. 07/11/24 He continues to be hemodynamically stable but confused and agitated likely secondary to dementia with behavioral disturbances. Follow-up case management in a.m. for discharge planning. 07/12/2024 -Patient awaiting placement ? Psychiatry consult appreciated. Continue current medications. ? Occupational Therapy assessment Assessment ordered. 07/13/2024 -Patient awaiting placement. Hemodynamically stable. ? Psychiatry consult appreciated. Continue current medications. ? Occupational Therapy on board. Patient is a max assist. 07/14/2024 - Patient awaiting placement. Hemodynamically stable. ? Psychiatry consult appreciated. Continue current medications. ? Occupational Therapy on board. Patient is a max assist. -Check blood cultures sputum culture urine culture ammonia CRP CBC CMP phosphorus TSH vitamin B12 today. Patient does not have capacity to make decisions at this time. Must rule out metabolic encephalopathy. Will obtain above labs complete medical workup and if negative will pursue psychiatric treatment. Discussed with Dr. Ruelas regarding adjusting medications. Discussed with them regarding the need for [facility]?. I will stop Haldol oral at this time. -He has not had a bowel movement since admission. Patient is on Linzess at home. Unable to contact family to obtain it for inpatient use. Discussed with pharmacy here and we will order that for him. ? Patient was given lactulose earlier but he spit it at the nurses. Will place her on docusate senna 100 mg tablet twice a day scheduled. Hopefully he can take her oral medications. ? I will plan to add Depakote 250 oral daily today. 07/15/2024 -Await psychiatric recommendations ? OT on board patient max assist ? Blood cultures pending ? Urine culture positive for staphylococcal species ? Will go ahead and treat for UTI. start levofloxacin 750 daily -Once UTI has been treated will need to assess mental status. ? He definitely has component of hospital-acquired delirium on underlying dementia ? We would need to completely treat medical causes prior to pursuing any kind of guardianship. ? Stop Ativan. ? Stop risperidone. Continue Depakote 250 bedtime. ? Continue Linzess. ? No family available at bedside. 07/16/2024 - -Await psychiatric recommendations ? OT on board patient max assist ? Blood cultures pending ? Urine culture positive for staphylococcal species ? continue to treat for UTI. start levofloxacin 750 daily - check mri brain w/o contrast today to r/o stroke, ativan 2 mg prior to study. - continue risperidone and depakote. continue linzess 07/17/2024 Patient is confused and has been refusing care. He is refusing several of his oral medications. He has not had a bowel movement since admission. Has spit out medications at nurses including lactulose that was attempted. 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 He gets agitated combative and starts spitting out medications at nurses. Very difficult to deal with. He is also had very poor oral intake. At most he will take a spoon of pudding. Has required a sitter at bedside. Does not follow commands or answer any questions. Has waxing and waning mental status. At times will swear at the nurses however at other times will lay there. Able to move all 4 extremities. MRI brain obtained ruled out a stroke. No swallowing impairment. Able to swallow when wants to swallow. In periods of agitation he will start pulling at his Lin catheter and pulling out IV. I attempted to reach out to family today however was unable to get a hold of anybody and left a voicemail to call back. On admission it was reported by brother that patient has been having recurrent falls and inability to care for himself. He was arousable to stimulation but did not offer any pertinent history. Brother provided the history. Patient has been suffering from progressively worsening confusion. Symptoms are worse at night. He has started to wander and patient is difficult to control. He gets agitated and has produced transient hematuria at times. Most likely has underlying dementia. There is a strong family history of dementia Alzheimer's type. Blood cultures negative to date. Urine culture positive for staphylococcal species. Patient is on Levaquin 750 daily IV. ? MRI brain has ruled out a stroke. ? Ideally want patient to be on risperidone and Depakote however he has been refusing medications and spitting them out at nurses. He has had periods of agitation where medication had to be given. ? Very poor oral intake. I do not believe he is a candidate for PEG tube at this time as he appears of agitation he will pull it out. Family member not available to make any decisions on patient's behalf. ? Patient does not let us obtain any labs either. Last set of labs obtained patient had to be restrained. We could try PPN for short-term however with worsening dementia and delirium patient pulling out IV this is not sustainable long-term. Also it will be difficult to follow electrolytes daily as patient refuses any care. ? Will await input from psychiatry. Question if patient is appropriate for [facility]?. Nutrition needs to be addressed. ? Will check CBC BMP magnesium phosphorus for a.m. labs. ? Complete Levaquin total 7 days and then stop. ? In my clinical judgment I believe patient has worsening dementia with poor oral intake refusal of care with periods of agitation and aggression at times. Medical causes have been ruled out and treated. He does have evidence of UTI for which she is on IV antibiotics for. There has been no improvement in mental status. MRI brain has ruled out any strokes at this time. Family is not available to make any decisions. They have only visited the hospital once as far as I am aware. Not available by phone. I have been informed by social services that they have tried to contact family over the phone multiple times in the past however nobody returns her phone calls. -I will stop oral risperidone at this time. ? Will place on Zyprexa 2.5 IM twice daily and add Depakote 250 IV daily at bedtime. We will assess for improvement with new regimen. Attestations Medical Necessity Statement*: Patient with worsening dementia with progressive decline, pending placement. Coding Level of Care Code 70500 High Time for a total of 60 minutes, includes reviewing past or interval history, placing orders, discussing plan of care with staff, documenting encounter and coordinating care Diagnoses Failure to thrive Fall W19.XXXA Rigidity R29.898 UTI (urinary tract infection) N39.0 Acute urinary retention R33.8 Renal insufficiency N28.9
[2024-07-17] MEDS: OLANZapine 10 mg VIAL 2.5 MG IM (15:02)
[2024-07-17 15:38] VITALS: BP 120/77; PULSE 96; RESP 18; TEMP 36.6; O2SAT 97
[2024-07-17] MEDS: linezolid premix 600 MG/300 ML PREMIX 300 MG IV (17:11)
[2024-07-17 20:00] VITALS: BP 100/61; RESP 22; TEMP 36.4
[2024-07-17] MEDS: valproic acid inj 250 MG in sodium chloride 0.9% 50 ML 55 MG IV (21:16)
[2024-07-18] VITALS (8 sets, daily range): BP systolic 86–99; BP diastolic 56–66; PULSE 89–96; RESP 13–20; TEMP 36.4; O2SAT 98–100
[2024-07-18] MEDS: OLANZapine 10 mg VIAL 2.5 MG IM ×2 (00:31→14:36)
--- NOTE | 2024-07-18 00:34 | PC.NURSE ---
Patient starting to get antsy and swatting at sitter and nurse. Dr. Hartley notified and okayed to give scheduled 0200 zyprexa, now.
[2024-07-18] MEDS: linezolid premix 600 MG/300 ML PREMIX 300 MG IV ×2 (04:47→16:34)
[2024-07-18] MEDS: morphine 4 mg/mL SDV 1 mL 2 MG IVP ×2 (08:24→22:18)
[2024-07-18] MEDS: heparin 5,000 unit/mL INJ 1 mL 5000 UNIT SUBCUT ×2 (09:31→22:19)
[2024-07-18 09:51] LABS: Basophils % 0.3 %; Hematocrit 46.5 % (37-53); Lymphocytes % 10.4 %; Mean Corpuscular HGB Conc 33.8 g/dL (30-55); Mean Corpuscular Hemoglobin 29.6 pg (27-33); Mean Corpuscular Volume 87.6 fl (82-101); Mean Platelet Volume 10.8 fL (7.4-10.4); Monocytes % 10.2 %; Neutrophils # 7.78 10^3/uL (1.8-7.7); Neutrophils % 78.2 %; Nucleated Red Blood Cells % 0 %; Platelet Count 245 10^3/cmm (157-399); Red Blood Count 5.31 10^6/uL (3.85-5.65); Red Cell Distribution Width 13.8 % (12.1-15.1); White Blood Count 9.94 10^3/uL (3.29-11.43)
[2024-07-18 10:09] LABS: Anion Gap 21.1 (5-19); Calcium 10.6 mg/dL (8.5-10.5); Carbon Dioxide 21 mmol/L (22-29); Chloride 105 mmol/L (98-107); Creatinine Clr Calc Pharmacy 29.8363; Glucose 113 mg/dL (65-115); Magnesium 2.4 mg/dL (1.7-2.3); Osmolality Calculated 321 mOsm/kg (285-295); Potassium 4.1 mmol/L (3.5-5.1); Sodium 143 mmol/L (136-145)
[2024-07-18 10:11] LABS: Blood Urea Nitrogen 81 mg/dL (8-23)
[2024-07-18] MEDS: sodium chloride 0.9% 1,000 ML 100 ML IV (12:43)
[2024-07-18] MEDS: water for injection-sterile 10 ML (14:38)
--- NOTE | 2024-07-18 14:56 | PM.PN ---
Subjective Subjective: Seen this morning. Patient laying in bed. He is awake today. However will not talk to me. When I question is asked he mumbles. Earlier family member was here we will try to feed him however patient would not eat. Apparently he spit food at the nurses. Vitals/I&O/Wt Last Vital Signs Temp 97.5 F L 07/18/24 00:00 Pulse 93 07/18/24 08:00 Resp 18 07/18/24 08:24 BP 100/61 07/17/24 20:00 Pulse Ox 100 07/18/24 08:00 O2 Del Method Room Air 07/18/24 08:00 07/17/24 07/18/24 07/18/24 22:59 06:59 14:59 Intake Total 352.5 / 502.5 300 / 802.5 Output Total 300 / 300 325 / 625 Balance 52.5 / 202.5 -25 / 177.5 Weight last 48 hrs Weight 57.062 kg Weight 57.924 kg Physical Exam Narrative: General: Laying in bed, confused. Cardiovascular: RRR. No gallops. Lungs: Clear to auscultation, no use of accessory muscles, no crackles or wheezes. Abdomen: Normal bowel sounds, abdomen soft and nontender. Extremities: No cyanosis or clubbing. Able to move all 4 extremities. Urinary Catheter Management: Lin: Cath Placed During This Visit: yes Reason for Continuing Indwelling Catheter: Chronic Indwelling Urinary Catheter on Admission Urinary Catheter Date of Insertion: 07/02/24 Urinary Catheter Time of Insertion: 19:50 Data 07/18/24 09:32 07/18/24 09:32 Micro: Microbiology 07/14/24 15:43 Urine Culture - Final Urine Catheterized Staphylococcus epidermidis A&P Assessment and plan (1) Failure to thrive: Patient presents with failure to thrive in adult Probably will need placement PT/OT evaluation CM consult Medical history is still limited, request outside records from [facility] [place] (2) Fall: Head CT negative for acute findings Fall precautions Neuroexam is limited due to mental status He may have deficits in the left upper extremity, will proceed with cervical neck CT and plain films of left upper extremity given he cannot provide pertinent feedback (3) Rigidity: He is noted to be quite rigid on exam, question underlying possible parkinsonian His movements can be further evaluated when he is more awake over the weekend Depending on clinical course and assessment, he may benefit from a neurology evaluation (4) UTI (urinary tract infection): Ux (06/20) w/ Enterobacter Urinalysis has improved Rotate to IV levofloxacin 500 mg for now (5) Acute urinary retention: Continue Lin catheter Continue Flomax (6) Renal insufficiency: Unknown renal baseline S/P 1 L IVF in ED Repeat labs in AM Plan DVT ppx: Heparin 07/03/24 Continue to monitor and continue current management. Need to follow-up case management on Friday for discharge planning 07/04/24 He is hemodynamically stable. Continue current management. Awaiting for discharge planning 07/05/24 He is medically stable. Blood cultures are negative so far. On IV Levaquin for UTI. Awaiting for discharge planning 07/06/24 Medically stable. Awaiting discharge planning. 07/07/24 Medically stable. Awaiting discharge planning meanwhile he is found to be agitated/own likely secondary to dementia. Started on Zyprexa 5 mg twice daily and Ativan 1 mg 3 times daily, Aricept 5 mg daily. 07/08/24 Will start him on risperidone 2.5 mg twice daily and decrease Zyprexa to 2.5 mg OD, continue Ativan 1 mg 3 times daily and Aricept 5 mg daily for agitation. Try to taper off Precedex drip this morning Continue to follow-up with case management for discharge planning to [facility] versus [facility]. 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 Transferred to medical floor for further management awaiting discharge planning 07/10/24 He is medically stable but confused and agitated. Follow-up psychiatry consult Had an episode of hypotension last night while transferring from bed to chair. Will discontinue Zyprexa. Continue risperidone, Aricept and Haldol. Will need case management for discharge planning. 07/11/24 He continues to be hemodynamically stable but confused and agitated likely secondary to dementia with behavioral disturbances. Follow-up case management in a.m. for discharge planning. 07/12/2024 -Patient awaiting placement ? Psychiatry consult appreciated. Continue current medications. ? Occupational Therapy assessment Assessment ordered. 07/13/2024 -Patient awaiting placement. Hemodynamically stable. ? Psychiatry consult appreciated. Continue current medications. ? Occupational Therapy on board. Patient is a max assist. 07/14/2024 - Patient awaiting placement. Hemodynamically stable. ? Psychiatry consult appreciated. Continue current medications. ? Occupational Therapy on board. Patient is a max assist. -Check blood cultures sputum culture urine culture ammonia CRP CBC CMP phosphorus TSH vitamin B12 today. Patient does not have capacity to make decisions at this time. Must rule out metabolic encephalopathy. Will obtain above labs complete medical workup and if negative will pursue psychiatric treatment. Discussed with Dr. Ruelas regarding adjusting medications. Discussed with them regarding the need for [facility]?. I will stop Haldol oral at this time. -He has not had a bowel movement since admission. Patient is on Linzess at home. Unable to contact family to obtain it for inpatient use. Discussed with pharmacy here and we will order that for him. ? Patient was given lactulose earlier but he spit it at the nurses. Will place her on docusate senna 100 mg tablet twice a day scheduled. Hopefully he can take her oral medications. ? I will plan to add Depakote 250 oral daily today. 07/15/2024 -Await psychiatric recommendations ? OT on board patient max assist ? Blood cultures pending ? Urine culture positive for staphylococcal species ? Will go ahead and treat for UTI. start levofloxacin 750 daily -Once UTI has been treated will need to assess mental status. ? He definitely has component of hospital-acquired delirium on underlying dementia ? We would need to completely treat medical causes prior to pursuing any kind of guardianship. ? Stop Ativan. ? Stop risperidone. Continue Depakote 250 bedtime. ? Continue Linzess. ? No family available at bedside. 07/16/2024 - -Await psychiatric recommendations ? OT on board patient max assist ? Blood cultures pending ? Urine culture positive for staphylococcal species ? continue to treat for UTI. start levofloxacin 750 daily - check mri brain w/o contrast today to r/o stroke, ativan 2 mg prior to study. - continue risperidone and depakote. continue linzess 07/17/2024 Patient is confused and has been refusing care. He is refusing several of his oral medications. He has not had a bowel movement since admission. Has spit out medications at nurses including lactulose that was attempted. Required Ativan 1 mg cellophaner hours for severe agitation. He gets agitated combative and starts spitting out medications at nurses. Very difficult to deal with. He is also had very poor oral intake. At most he will take a spoon of pudding. Has required a sitter at bedside. Does not follow commands or answer any questions. Has waxing and waning mental status. At times will swear at the nurses however at other times will lay there. Able to move all 4 extremities. MRI brain obtained ruled out a stroke. No swallowing impairment. Able to swallow when wants to swallow. In periods of agitation he will start pulling at his Lin catheter and pulling out IV. I attempted to reach out to family today however was unable to get a hold of anybody and left a voicemail to call back. On admission it was reported by brother that patient has been having recurrent falls and inability to care for himself. He was arousable to stimulation but did not offer any pertinent history. Brother provided the history. Patient has been suffering from progressively worsening confusion. Symptoms are worse at night. He has started to wander and patient is difficult to control. He gets agitated and has produced transient hematuria at times. Most likely has underlying dementia. There is a strong family history of dementia Alzheimer's type. Blood cultures negative to date. Urine culture positive for staphylococcal species. Patient is on Levaquin 750 daily IV. ? MRI brain has ruled out a stroke. ? Ideally want patient to be on risperidone and Depakote however he has been refusing medications and spitting them out at nurses. He has had periods of agitation where medication had to be given. ? Very poor oral intake. I do not believe he is a candidate for PEG tube at this time as he appears of agitation he will pull it out. Family member not available to make any decisions on patient's behalf. ? Patient does not let us obtain any labs either. Last set of labs obtained patient had to be restrained. We could try PPN for short-term however with worsening dementia and delirium patient pulling out IV this is not sustainable long-term. Also it will be difficult to follow electrolytes daily as patient refuses any care. ? Will await input from psychiatry. Question if patient is appropriate for [facility]?. Nutrition needs to be addressed. ? Will check CBC BMP magnesium phosphorus for a.m. labs. ? Complete Levaquin total 7 days and then stop. ? In my clinical judgment I believe patient has worsening dementia with poor oral intake refusal of care with periods of agitation and aggression at times. Medical causes have been ruled out and treated. He does have evidence of UTI for which she is on IV antibiotics for. There has been no improvement in mental status. MRI brain has ruled out any strokes at this time. Family is not available to make any decisions. They have only visited the hospital once as far as I am aware. Not available by phone. I have been informed by social worker aide that they have tried to contact family over the phone multiple times in the past however nobody returns her phone calls. -I will stop oral risperidone at this time. ? Will place on Zyprexa 2.5 IM twice daily and add Depakote 250 IV daily at bedtime. We will assess for improvement with new regimen. 07/18/2024 -Continue Zyprexa 2.5 IM twice daily and Depakote 250 IV daily at bedtime. ? Patient hyperglycemic this morning. Calcium 10.8. Will check a liver panel ? SANDRO present, creatinine 1.7. ? Check PTH level ? Placed on normal saline 110 cc/h. ? Repeat labs in AM. ? Continue Zyvox twice daily based on recent urine culture results. ? If mentation does improve we will attempt to feed. When asked this morning if he was hungry he did not answer however there is a food of tray sitting at bedside. ? He had agitation event overnight for which Zyprexa was given. ? Continue to hospitalize and monitor. Attestations Medical Necessity Statement*: Patient with worsening dementia with progressive decline, pending placement. Diagnoses Failure to thrive Fall W19.XXXA Rigidity R29.898 UTI (urinary tract infection) N39.0 Acute urinary retention R33.8 Renal insufficiency N28.9
[2024-07-18 15:19] LABS: Calcium 10.3 mg/dL (8.5-10.5)
[2024-07-18 15:25] LABS: Parathyroid Hormone 25.6 pg/mL (15-65)
[2024-07-18 15:34] LABS: Alanine Aminotransferase 42 U/L (0-41); Albumin Level 3.1 g/dL (3.5-5.2); Alkaline Phosphatase 71 U/L (40-130); Total Protein 7.1 g/dL (6.6-8.7)
[2024-07-18 15:49] LABS: Aspartate Amino Transferase 83 U/L (0-40)
[2024-07-18] MEDS: valproic acid inj 250 MG in sodium chloride 0.9% 50 ML 55 MG IV (22:19)
[2024-07-19] VITALS (7 sets, daily range): BP systolic 91–110; BP diastolic 59–69; PULSE 82–100; RESP 15–20; TEMP 36.3–36.9; O2SAT 90–96
[2024-07-19] MEDS: OLANZapine 10 mg VIAL 2.5 MG IM (02:02)
[2024-07-19] MEDS: water for injection-sterile 10 ML ×2 (02:07→16:13)
[2024-07-19] MEDS: linezolid premix 600 MG/300 ML PREMIX 300 MG IV ×2 (04:18→18:13)
[2024-07-19] MEDS: sodium chloride 0.9% 1,000 ML 110 ML IV (05:38)
[2024-07-19] MEDS: morphine 4 mg/mL SDV 1 mL 2 MG IVP ×2 (06:47→23:07)
[2024-07-19 08:59] LABS: Basophils % 0.1 %; Hematocrit 42.6 % (37-53); Lymphocytes # 1.3 10^3/uL (0.8-4.8); Lymphocytes % 12.7 %; Mean Corpuscular HGB Conc 32.6 g/dL (30-55); Mean Corpuscular Hemoglobin 29.4 pg (27-33); Mean Corpuscular Volume 90.1 fl (82-101); Mean Platelet Volume 10.6 fL (7.4-10.4); Monocytes # 0.8 10^3/uL (0.2-0.9); Monocytes % 7.9 %; Neutrophils # 7.89 10^3/uL (1.8-7.7); Neutrophils % 78.6 %; Nucleated Red Blood Cells % 0 %; Platelet Count 241 10^3/cmm (157-399); Red Blood Count 4.73 10^6/uL (3.85-5.65); Red Cell Distribution Width 14.1 % (12.1-15.1); White Blood Count 10.04 10^3/uL (3.29-11.43)
[2024-07-19] MEDS: heparin 5,000 unit/mL INJ 1 mL 5000 UNIT SUBCUT ×2 (09:11→22:43)
[2024-07-19 09:12] LABS: Alanine Aminotransferase 37 U/L (0-41); Albumin Level 2.8 g/dL (3.5-5.2); Alkaline Phosphatase 66 U/L (40-130); Anion Gap 21.2 (5-19); Aspartate Amino Transferase 71 U/L (0-40); Calcium 9.7 mg/dL (8.5-10.5); Carbon Dioxide 19 mmol/L (22-29); Chloride 110 mmol/L (98-107); Creatinine Clr Calc Pharmacy 27.4298; Globulin 3.4 g/dL (1.3-4.6); Glucose 110 mg/dL (65-115); Magnesium 2.5 mg/dL (1.7-2.3); Osmolality Calculated 329 mOsm/kg (285-295); Phosphorus 3.4 mg/dL (2.5-4.5); Potassium 4.2 mmol/L (3.5-5.1); Sodium 146 mmol/L (136-145); Total Bilirubin 0.9 mg/dL (0.15-1.2); Total Protein 6.2 g/dL (6.6-8.7)
[2024-07-19] MEDS: timolol 0.5% Op Soln 5 mL Btl 1 DROP EYE-BOTH (09:14)
[2024-07-19 09:35] LABS: Blood Urea Nitrogen 86 mg/dL (8-23)
--- NOTE | 2024-07-19 14:36 | P.PN_ITS ---
Subjective 2 Subjective: Seen this morning. Family at bedside. They are shaving his face and feeding him pudding at this time. Patient ate half a cup of pudding. He is awake and alert and will nod his head yes and no when a question is asked however does not speak to the point but we could check for orientation. Vitals/I&O/Wt Last Vital Signs Temp 97.6 F 07/19/24 11:53 Pulse 82 07/19/24 11:53 Resp 16 07/19/24 11:53 BP 101/66 07/19/24 11:53 Pulse Ox 95 07/19/24 11:53 O2 Del Method Room Air 07/19/24 11:53 07/18/24 07/19/24 07/19/24 22:59 06:59 14:59 Intake Total 1123.833 / 1123.833 538.667 / 1662.500 Output Total 200 / 200 0 / 200 Balance 923.833 / 923.833 538.667 / 1462.500 Weight last 48 hrs Weight 61.717 kg Weight 57.062 kg Physical Exam 2 Narrative: General: Laying in bed, awake and alert, eating pudding Cardiovascular: RRR. No gallops. Lungs: Clear to auscultation, no use of accessory muscles, no crackles or wheezes. Abdomen: Normal bowel sounds, abdomen soft and nontender. Extremities: No cyanosis or clubbing. Able to move all 4 extremities. Urinary Catheter Management: Lin: Cath Placed During This Visit: yes Reason for Continuing Indwelling Catheter: Acute Urinary Retention or Obstruction Urinary Catheter Date of Insertion: 07/02/24 Urinary Catheter Time of Insertion: 19:50 Data 07/19/24 08:42 07/19/24 08:42 A&P Assessment and plan (1) Failure to thrive: Patient presents with failure to thrive in adult Probably will need placement PT/OT evaluation CM consult Medical history is still limited, request outside records from [facility] (2) Fall: Head CT negative for acute findings Fall precautions Neuroexam is limited due to mental status He may have deficits in the left upper extremity, will proceed with cervical neck CT and plain films of left upper extremity given he cannot provide pertinent feedback (3) Rigidity: He is noted to be quite rigid on exam, question underlying possible parkinsonian His movements can be further evaluated when he is more awake over the weekend Depending on clinical course and assessment, he may benefit from a neurology evaluation (4) UTI (urinary tract infection): Ux (06/20) w/ Enterobacter Urinalysis has improved Rotate to IV levofloxacin 500 mg for now (5) Acute urinary retention: Continue Lin catheter Continue Flomax (6) Renal insufficiency: Unknown renal baseline S/P 1 L IVF in ED Repeat labs in AM Plan DVT ppx: Heparin 07/03/24 Continue to monitor and continue current management. Need to follow-up case management on Friday for discharge planning 07/04/24 He is hemodynamically stable. Continue current management. Awaiting for discharge planning 07/05/24 He is medically stable. Blood cultures are negative so far. On IV Levaquin for UTI. Awaiting for discharge planning 07/06/24 Medically stable. Awaiting discharge planning. 07/07/24 Medically stable. Awaiting discharge planning meanwhile he is found to be agitated/sundowning likely secondary to dementia. Started on Zyprexa 5 mg twice daily and Ativan 1 mg 3 times daily, Aricept 5 mg daily. 07/08/24 Will start him on risperidone 2.5 mg twice daily and decrease Zyprexa to 2.5 mg OD, continue Ativan 1 mg 3 times daily and Aricept 5 mg daily for agitation. Try to taper off Precedex drip this morning Continue to follow-up with case management for discharge planning to [facility] versus retirement. 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 Transferred to medical floor for further management awaiting discharge planning 07/10/24 He is medically stable but confused and agitated. Follow-up psychiatry consult Had an episode of hypotension last night while transferring from bed to chair. Will discontinue Zyprexa. Continue risperidone, Aricept and Haldol. Will need case management for discharge planning. 07/11/24 He continues to be hemodynamically stable but confused and agitated likely secondary to dementia with behavioral disturbances. Follow-up case management in a.m. for discharge planning. 07/12/2024 -Patient awaiting placement ? Psychiatry consult appreciated. Continue current medications. ? Occupational Therapy assessment Assessment ordered. 07/13/2024 -Patient awaiting placement. Hemodynamically stable. ? Psychiatry consult appreciated. Continue current medications. ? Occupational Therapy on board. Patient is a max assist. 07/14/2024 - Patient awaiting placement. Hemodynamically stable. ? Psychiatry consult appreciated. Continue current medications. ? Occupational Therapy on board. Patient is a max assist. -Check blood cultures sputum culture urine culture ammonia CRP CBC CMP phosphorus TSH vitamin B12 today. Patient does not have capacity to make decisions at this time. Must rule out metabolic encephalopathy. Will obtain above labs complete medical workup and if negative will pursue psychiatric treatment. Discussed with Dr. Ruelas regarding adjusting medications. Discussed with them regarding the need for [facility]?. I will stop Haldol oral at this time. -He has not had a bowel movement since admission. Patient is on Linzess at home. Unable to contact family to obtain it for inpatient use. Discussed with pharmacy here and we will order that for him. ? Patient was given lactulose earlier but he spit it at the nurses. Will place her on docusate senna 100 mg tablet twice a day scheduled. Hopefully he can take her oral medications. ? I will plan to add Depakote 250 oral daily today. 07/15/2024 -Await psychiatric recommendations ? OT on board patient max assist ? Blood cultures pending ? Urine culture positive for staphylococcal species ? Will go ahead and treat for UTI. start levofloxacin 750 daily -Once UTI has been treated will need to assess mental status. ? He definitely has component of hospital-acquired delirium on underlying dementia ? We would need to completely treat medical causes prior to pursuing any kind of guardianship. ? Stop Ativan. ? Stop risperidone. Continue Depakote 250 bedtime. ? Continue Linzess. ? No family available at bedside. 07/16/2024 - -Await psychiatric recommendations ? OT on board patient max assist ? Blood cultures pending ? Urine culture positive for staphylococcal species ? continue to treat for UTI. start levofloxacin 750 daily - check mri brain w/o contrast today to r/o stroke, ativan 2 mg prior to study. - continue risperidone and depakote. continue linzess 07/17/2024 Patient is confused and has been refusing care. He is refusing several of his oral medications. He has not had a bowel movement since admission. Has spit out medications at nurses including lactulose that was attempted. Required Ativan 1 mg early childhood educator aide hours for severe agitation. He gets agitated combative and starts spitting out medications at nurses. Very difficult to deal with. He is also had very poor oral intake. At most he will take a spoon of pudding. Has required a sitter at bedside. Does not follow commands or answer any questions. Has waxing and waning mental status. At times will swear at the nurses however at other times will lay there. Able to move all 4 extremities. MRI brain obtained ruled out a stroke. No swallowing impairment. Able to swallow when wants to swallow. In periods of agitation he will start pulling at his Lin catheter and pulling out IV. I attempted to reach out to family today however was unable to get a hold of anybody and left a voicemail to call back. On admission it was reported by brother that patient has been having recurrent falls and inability to care for himself. He was arousable to stimulation but did not offer any pertinent history. Brother provided the history. Patient has been suffering from progressively worsening confusion. Symptoms are worse at night. He has started to wander and patient is difficult to control. He gets agitated and has produced transient hematuria at times. Most likely has underlying dementia. There is a strong family history of dementia Alzheimer's type. Blood cultures negative to date. Urine culture positive for staphylococcal species. Patient is on Levaquin 750 daily IV. ? MRI brain has ruled out a stroke. ? Ideally want patient to be on risperidone and Depakote however he has been refusing medications and spitting them out at nurses. He has had periods of agitation where medication had to be given. ? Very poor oral intake. I do not believe he is a candidate for PEG tube at this time as he appears of agitation he will pull it out. Family member not available to make any decisions on patient's behalf. ? Patient does not let us obtain any labs either. Last set of labs obtained patient had to be restrained. We could try PPN for short-term however with worsening dementia and delirium patient pulling out IV this is not sustainable long-term. Also it will be difficult to follow electrolytes daily as patient refuses any care. ? Will await input from psychiatry. Question if patient is appropriate for [facility]?. Nutrition needs to be addressed. ? Will check CBC BMP magnesium phosphorus for a.m. labs. ? Complete Levaquin total 7 days and then stop. ? In my clinical judgment I believe patient has worsening dementia with poor oral intake refusal of care with periods of agitation and aggression at times. Medical causes have been ruled out and treated. He does have evidence of UTI for which she is on IV antibiotics for. There has been no improvement in mental status. MRI brain has ruled out any strokes at this time. Family is not available to make any decisions. They have only visited the hospital once as far as I am aware. Not available by phone. I have been informed by group social worker that they have tried to contact family over the phone multiple times in the past however nobody returns her phone calls. -I will stop oral risperidone at this time. ? Will place on Zyprexa 2.5 IM twice daily and add Depakote 250 IV daily at bedtime. We will assess for improvement with new regimen. 07/18/2024 -Continue Zyprexa 2.5 IM twice daily and Depakote 250 IV daily at bedtime. ? Patient hyperglycemic this morning. Calcium 10.8. Will check a liver panel ? SANDRO present, creatinine 1.7. ? Check PTH level ? Placed on normal saline 110 cc/h. ? Repeat labs in AM. ? Continue Zyvox twice daily based on recent urine culture results. ? If mentation does improve we will attempt to feed. When asked this morning if he was hungry he did not answer however there is a food of tray sitting at bedside. ? He had agitation event overnight for which Zyprexa was given. ? Continue to hospitalize and monitor.. 07/19/2024 -Seen this morning. Continue Zyprexa and IV Depakote ? Calcium improved. ? SANDRO present, worsening creatinine 2.0. Most likely secondary to prerenal cause hypotension. ? Continue on IV fluids. Sodium 146 today. Will switch fluids to D5 half-normal saline at 100 cc/h. ? Continue to watch patient's oral intake. ? Discussed with patient's family regarding plan of care and further management. If patient does not show any improvement family may consider comfort measures in next 48 hours. Attestations 2 Medical Necessity Statement*: Patient with worsening dementia with progressive decline, pending placement. Coding Level of Care Code Acute Code for Chg Fwd Diagnoses Failure to thrive Fall W19.XXXA Rigidity R29.898 UTI (urinary tract infection) N39.0 Acute urinary retention R33.8 Renal insufficiency N28.9
[2024-07-19] MEDS: OLANZapine 10 mg VIAL (16:12)
[2024-07-19] MEDS: dextrose 5%-sod chloride 0.45% 1,000 ML 100 ML IV (16:12)
--- NOTE | 2024-07-19 16:26 | PC.OT ---
SKILLED OT TREATMENT ATTEMPTED. PATIENT IN BED AND 1:1 SITTER PRESENT. PATIENT DOES OPEN EYES BUT IS UNABLE TO ACTIVELY PARTICIPATE IN ATTEMPTED SKILLED OT TREATMENT.
[2024-07-19] MEDS: valproic acid inj 250 MG in sodium chloride 0.9% 50 ML 55 MG IV (22:43)
[2024-07-20] VITALS: BP 94/57; PULSE 91; RESP 18; TEMP 36.6; O2SAT 97
[2024-07-20] MEDS: OLANZapine 10 mg VIAL 2.5 MG IM ×2 (01:00→13:52)
[2024-07-20] MEDS: water for injection-sterile 10 ML (01:01)
[2024-07-20] MEDS: dextrose 5%-sod chloride 0.45% 1,000 ML 100 ML IV ×2 (01:50→12:36)
[2024-07-20 04:00] VITALS: BP 118/70; PULSE 73; RESP 16; TEMP 36.4; O2SAT 98
[2024-07-20] MEDS: linezolid premix 600 MG/300 ML PREMIX 300 MG IV ×2 (05:02→15:34)
[2024-07-20 07:32] VITALS: BP 111/62; PULSE 80; RESP 17; TEMP 36.7; O2SAT 96
[2024-07-20 11:51] LABS: Basophils % 0.2 %; Eosinophils % 0.3 %; Hematocrit 39.5 % (37-53); Lymphocytes # 1.1 10^3/uL (0.8-4.8); Lymphocytes % 11.1 %; Mean Corpuscular HGB Conc 31.4 g/dL (30-55); Mean Corpuscular Hemoglobin 29.8 pg (27-33); Mean Platelet Volume 10.5 fL (7.4-10.4); Monocytes # 0.7 10^3/uL (0.2-0.9); Monocytes % 7.1 %; Neutrophils # 7.73 10^3/uL (1.8-7.7); Neutrophils % 80.9 %; Nucleated Red Blood Cells % 0 %; Platelet Count 193 10^3/cmm (157-399); Red Blood Count 4.16 10^6/uL (3.85-5.65); Red Cell Distribution Width 14.4 % (12.1-15.1); White Blood Count 9.56 10^3/uL (3.29-11.43)
[2024-07-20 12:07] LABS: Alanine Aminotransferase 38 U/L (0-41); Albumin Level 2.4 g/dL (3.5-5.2); Alkaline Phosphatase 57 U/L (40-130); Blood Urea Nitrogen 64 mg/dL (8-23); Calcium 9.1 mg/dL (8.5-10.5); Carbon Dioxide 24 mmol/L (22-29); Chloride 110 mmol/L (98-107); Globulin 3.2 g/dL (1.3-4.6); Glucose 118 mg/dL (65-115); Magnesium 2.7 mg/dL (1.7-2.3); Osmolality Calculated 317 mOsm/kg (285-295); Sodium 144 mmol/L (136-145); Total Bilirubin 0.7 mg/dL (0.15-1.2); Total Protein 5.6 g/dL (6.6-8.7)
[2024-07-20 12:09] LABS: Anion Gap 14.2 (5-19); Potassium 4.2 mmol/L (3.5-5.1)
[2024-07-20 12:10] LABS: Aspartate Amino Transferase 81 U/L (0-40)
--- NOTE | 2024-07-20 12:52 | P.PN_ITS ---
Subjective 2 Subjective: Seen this morning. Patient agitated and not having any meaningful conversation. Has had poor oral intake since yesterday. Not eating and drinking. Will split out what ever is given. Niece and her at bedside. Discussed with him regarding patient's condition at this time. Discussed comfort measures. They will talk to patient's brother and get back to us. Vitals/I&O/Wt Last Vital Signs Temp 98.0 F 07/20/24 07:32 Pulse 80 07/20/24 07:32 Resp 17 07/20/24 07:32 BP 111/62 07/20/24 07:32 Pulse Ox 96 07/20/24 07:32 O2 Del Method Room Air 07/20/24 07:32 07/19/24 07/20/24 07/20/24 22:59 06:59 14:59 Intake Total 305.667 / 4996.157 3740.833 / 2631.627 1000 / 1000 Output Total 800 / 800 300 / 1100 Balance -494.333 / 200.310 9939.833 / 0728.162 2939 / 1000 Weight last 48 hrs Weight 62.959 kg Weight 61.717 kg Physical Exam 2 Narrative: General: Laying in bed, confused. Cardiovascular: RRR. No gallops. Lungs: Clear to auscultation, no use of accessory muscles Abdomen: Normal bowel sounds, abdomen soft and nontender. Extremities: No cyanosis or clubbing. Able to move all 4 extremities. Urinary Catheter Management: Lin: Cath Placed During This Visit: yes Reason for Continuing Indwelling Catheter: Acute Urinary Retention or Obstruction Urinary Catheter Date of Insertion: 07/02/24 Urinary Catheter Time of Insertion: 19:50 Data 07/20/24 11:20 07/20/24 11:20 Micro: Microbiology 07/14/24 21:20 Blood Culture - Final Blood NO GROWTH AFTER 5 DAYS 07/14/24 14:51 Blood Culture - Final Blood NO GROWTH AFTER 5 DAYS A&P Assessment and plan (1) Failure to thrive: Patient presents with failure to thrive in adult Probably will need placement PT/OT evaluation CM consult Medical history is still limited, request outside records from [facility] (2) Fall: Head CT negative for acute findings Fall precautions Neuroexam is limited due to mental status He may have deficits in the left upper extremity, will proceed with cervical neck CT and plain films of left upper extremity given he cannot provide pertinent feedback (3) Rigidity: He is noted to be quite rigid on exam, question underlying possible parkinsonian His movements can be further evaluated when he is more awake over the weekend Depending on clinical course and assessment, he may benefit from a neurology evaluation (4) UTI (urinary tract infection): Ux (06/20) w/ Enterobacter Urinalysis has improved Rotate to IV levofloxacin 500 mg for now (5) Acute urinary retention: Continue Lin catheter Continue Flomax (6) Renal insufficiency: Unknown renal baseline S/P 1 L IVF in ED Repeat labs in AM Plan DVT ppx: Heparin 07/03/24 Continue to monitor and continue current management. Need to follow-up case management on Friday for discharge planning 07/04/24 He is hemodynamically stable. Continue current management. Awaiting for discharge planning 07/05/24 He is medically stable. Blood cultures are negative so far. On IV Levaquin for UTI. Awaiting for discharge planning 07/06/24 Medically stable. Awaiting discharge planning. 07/07/24 Medically stable. Awaiting discharge planning meanwhile he is found to be agitated/own likely secondary to dementia. Started on Zyprexa 5 mg twice daily and Ativan 1 mg 3 times daily, Aricept 5 mg daily. 07/08/24 Will start him on risperidone 2.5 mg twice daily and decrease Zyprexa to 2.5 mg OD, continue Ativan 1 mg 3 times daily and Aricept 5 mg daily for agitation. Try to taper off Precedex drip this morning Continue to follow-up with case management for discharge planning to [facility]. 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 Transferred to medical floor for further management awaiting discharge planning 07/10/24 He is medically stable but confused and agitated. Follow-up psychiatry consult Had an episode of hypotension last night while transferring from bed to chair. Will discontinue Zyprexa. Continue risperidone, Aricept and Haldol. Will need case management for discharge planning. 07/11/24 He continues to be hemodynamically stable but confused and agitated likely secondary to dementia with behavioral disturbances. Follow-up case management in a.m. for discharge planning. 07/12/2024 -Patient awaiting placement ? Psychiatry consult appreciated. Continue current medications. ? Occupational Therapy assessment Assessment ordered. 07/13/2024 -Patient awaiting placement. Hemodynamically stable. ? Psychiatry consult appreciated. Continue current medications. ? Occupational Therapy on board. Patient is a max assist. 07/14/2024 - Patient awaiting placement. Hemodynamically stable. ? Psychiatry consult appreciated. Continue current medications. ? Occupational Therapy on board. Patient is a max assist. -Check blood cultures sputum culture urine culture ammonia CRP CBC CMP phosphorus TSH vitamin B12 today. Patient does not have capacity to make decisions at this time. Must rule out metabolic encephalopathy. Will obtain above labs complete medical workup and if negative will pursue psychiatric treatment. Discussed with Dr. Ruelas regarding adjusting medications. Discussed with them regarding the need for [facility]?. I will stop Haldol oral at this time. -He has not had a bowel movement since admission. Patient is on Linzess at home. Unable to contact family to obtain it for inpatient use. Discussed with pharmacy here and we will order that for him. ? Patient was given lactulose earlier but he spit it at the nurses. Will place her on docusate senna 100 mg tablet twice a day scheduled. Hopefully he can take her oral medications. ? I will plan to add Depakote 250 oral daily today. 07/15/2024 -Await psychiatric recommendations ? OT on board patient max assist ? Blood cultures pending ? Urine culture positive for staphylococcal species ? Will go ahead and treat for UTI. start levofloxacin 750 daily -Once UTI has been treated will need to assess mental status. ? He definitely has component of hospital-acquired delirium on underlying dementia ? We would need to completely treat medical causes prior to pursuing any kind of guardianship. ? Stop Ativan. ? Stop risperidone. Continue Depakote 250 bedtime. ? Continue Linzess. ? No family available at bedside. 07/16/2024 - -Await psychiatric recommendations ? OT on board patient max assist ? Blood cultures pending ? Urine culture positive for staphylococcal species ? continue to treat for UTI. start levofloxacin 750 daily - check mri brain w/o contrast today to r/o stroke, ativan 2 mg prior to study. - continue risperidone and depakote. continue linzess 07/17/2024 Patient is confused and has been refusing care. He is refusing several of his oral medications. He has not had a bowel movement since admission. Has spit out medications at nurses including lactulose that was attempted. Required Ativan 1 mg director patient hours for severe agitation. He gets agitated combative and starts spitting out medications at nurses. Very difficult to deal with. He is also had very poor oral intake. At most he will take a spoon of pudding. Has required a sitter at bedside. Does not follow commands or answer any questions. Has waxing and waning mental status. At times will swear at the nurses however at other times will lay there. Able to move all 4 extremities. MRI brain obtained ruled out a stroke. No swallowing impairment. Able to swallow when wants to swallow. In periods of agitation he will start pulling at his Lin catheter and pulling out IV. I attempted to reach out to family today however was unable to get a hold of anybody and left a voicemail to call back. On admission it was reported by brother that patient has been having recurrent falls and inability to care for himself. He was arousable to stimulation but did not offer any pertinent history. Brother provided the history. Patient has been suffering from progressively worsening confusion. Symptoms are worse at night. He has started to wander and patient is difficult to control. He gets agitated and has produced transient hematuria at times. Most likely has underlying dementia. There is a strong family history of dementia Alzheimer's type. Blood cultures negative to date. Urine culture positive for staphylococcal species. Patient is on Levaquin 750 daily IV. ? MRI brain has ruled out a stroke. ? Ideally want patient to be on risperidone and Depakote however he has been refusing medications and spitting them out at nurses. He has had periods of agitation where medication had to be given. ? Very poor oral intake. I do not believe he is a candidate for PEG tube at this time as he appears of agitation he will pull it out. Family member not available to make any decisions on patient's behalf. ? Patient does not let us obtain any labs either. Last set of labs obtained patient had to be restrained. We could try PPN for short-term however with worsening dementia and delirium patient pulling out IV this is not sustainable long-term. Also it will be difficult to follow electrolytes daily as patient refuses any care. ? Will await input from psychiatry. Question if patient is appropriate for [facility]?. Nutrition needs to be addressed. ? Will check CBC BMP magnesium phosphorus for a.m. labs. ? Complete Levaquin total 7 days and then stop. ? In my clinical judgment I believe patient has worsening dementia with poor oral intake refusal of care with periods of agitation and aggression at times. Medical causes have been ruled out and treated. He does have evidence of UTI for which she is on IV antibiotics for. There has been no improvement in mental status. MRI brain has ruled out any strokes at this time. Family is not available to make any decisions. They have only visited the hospital once as far as I am aware. Not available by phone. I have been informed by neonatal social worker that they have tried to contact family over the phone multiple times in the past however nobody returns her phone calls. -I will stop oral risperidone at this time. ? Will place on Zyprexa 2.5 IM twice daily and add Depakote 250 IV daily at bedtime. We will assess for improvement with new regimen. 07/18/2024 -Continue Zyprexa 2.5 IM twice daily and Depakote 250 IV daily at bedtime. ? Patient hyperglycemic this morning. Calcium 10.8. Will check a liver panel ? SANDRO present, creatinine 1.7. ? Check PTH level ? Placed on normal saline 110 cc/h. ? Repeat labs in AM. ? Continue Zyvox twice daily based on recent urine culture results. ? If mentation does improve we will attempt to feed. When asked this morning if he was hungry he did not answer however there is a food of tray sitting at bedside. ? He had agitation event overnight for which Zyprexa was given. ? Continue to hospitalize and monitor.. 07/19/2024 -Seen this morning. Continue Zyprexa and IV Depakote ? Calcium improved. ? SANDRO present, worsening creatinine 2.0. Most likely secondary to prerenal cause hypotension. ? Continue on IV fluids. Sodium 146 today. Will switch fluids to D5 half-normal saline at 100 cc/h. ? Continue to watch patient's oral intake. ? Discussed with patient's family regarding plan of care and further management. If patient does not show any improvement family may consider comfort measures in next 48 hours. 07/20/2024 -Continue Zyprexa, IV Depakote Calcium improved SANDRO improving Continue IV fluids at this time D5 half-normal saline at 100 cc/h. Patient did pull out his IV yesterday. Family will probably transition to comfort measures later today versus tomorrow. Patient's niece stated that she will get back to me. stop zyvox at day 7 Attestations 2 Medical Necessity Statement*: Patient with worsening dementia with progressive decline, pending placement. Diagnoses Failure to thrive Fall W19.XXXA Rigidity R29.898 UTI (urinary tract infection) N39.0 Acute urinary retention R33.8 Renal insufficiency N28.9
--- NOTE | 2024-07-20 14:46 | PC.OT ---
OT TREATMENT ATTEMPTED. PATIENT SLEEPING SOUNDLY.
[2024-07-20 15:42] VITALS: RESP 16
[2024-07-20] MEDS: morphine 4 mg/mL SDV 1 mL 2 MG IVP (15:42)
[2024-07-20] MEDS: heparin 5,000 unit/mL INJ 1 mL 5000 UNIT SUBCUT (20:40)
[2024-07-20] MEDS: morphine 10 mg/0.5 mL oral liq UD SUBLINGUAL ×2 (21:32→23:00)
[2024-07-21] MEDS: morphine 10 mg/0.5 mL oral liq UD SUBLINGUAL ×2 (08:52→13:36)
[2024-07-21] MEDS: LORazepam 2 mg/mL oral liquid (mL) SUBLINGUAL ×2 (11:43→13:36)
--- NOTE | 2024-07-21 11:43 | P.DS_ITS ---
Discharge Providers Date of Admission: 07/02/24 19:18 Date of Discharge: July 21, 2024 Attending Provider at Admission: Konrad Yoon MD Attending Provider at Discharge: Melodie Fish MD Diagnoses at Discharge Discharge Diagnosis (1) Failure to thrive: Status: Acute (2) Fall: Status: Acute (3) Rigidity: Status: Acute (4) UTI (urinary tract infection): Status: Acute (5) Acute urinary retention: Status: Inactive (6) Renal insufficiency: Status: Acute Reason for Visit Reason for Visit: stroke like symptoms (dr. rucker) Hospital Course Hospital Course Patient was had a prolonged hospitalization. Please see previous notes for details. Patient's family elected for comfort measures secondary to progressive decline secondary to dementia. Patient will be sent to skilled nursing with hospice at this time. Physical Exam Narrative: Appears to be comfortable at this time. Limited exam secondary to comfort measures status. Urinary Catheter Management: Lin: Cath Placed During This Visit: yes Reason for Continuing Indwelling Catheter: Acute Urinary Retention or Obstruction Urinary Catheter Date of Insertion: 07/02/24 Urinary Catheter Time of Insertion: 19:50 Discharge Data Studies Completed and Pending Completed Studies During Hospitalization Category Date Time Status CT cervical spine w con 98360 Routine Cat Scan 07/02/24 22:[address] head wo con* [id number] Stat Cat Scan 07/02/24 15:[address] head wo con* [id number] Stat Cat Scan 07/12/24 14:09 Completed XR chest 1V portable [id number] Stat Exams 07/02/24 15:57 Completed XR forearm LT 2V [id number] Routine Exams 07/02/24 22:03 [place] [id number] Routine Exams 07/02/24 22:03 Completed XR shoulder LT min 2V* [id number] Routine Exams 07/02/24 22:03 Completed MR head wo con* [id number] Urgent MRI 07/16/24 12:40 Completed Radiology Impressions Chest X-Ray 07/02/24 15:57 IMPRESSION: No acute findings. Cervical Spine CT 07/02/24 22:03 IMPRESSION: No acute fracture or traumatic malalignment. Forearm X-Ray 07/02/24 22:03 IMPRESSION: No acute findings. Humerus X-Ray 07/02/24 22:03 IMPRESSION: No acute findings. Shoulder X-Ray 07/02/24 22:03 IMPRESSION: No acute findings. Head CT 07/12/24 14:09 IMPRESSION: 1. No gross intracranial abnormality within limitations of motion degradation. Consider repeat exam when patient is able to cooperate. Head MRI 07/16/24 12:40 IMPRESSION: 1. No evidence of acute intracranial process. 2. Disproportionate temporal lobe atrophy. 3. Mild small vessel disease. Laboratory Results WBC 9.56 10^3/uL (3.29-11.43) 07/20/24 11:20 Corrected WBC Cancelled 07/06/24 04:36 RBC 4.16 10^6/uL (3.85-5.65) 07/20/24 11:20 Hgb 12.40 g/dL (11.27-16.99) 07/20/24 11:20 Hct 39.5 % (37-53) 07/20/24 11:20 MCV 95.0 fl (82-101) 07/20/24 11:20 MCH 29.8 pg (27-33) 07/20/24 11:20 MCHC 31.4 g/dL (30-55) 07/20/24 11:20 RDW 14.4 % (12.1-15.1) 07/20/24 11:20 Plt Count 193 10^3/cmm (157-399) 07/20/24 11:20 MPV 10.5 fL (7.4-10.4) H 07/20/24 11:20 Gran % Cancelled 07/06/24 04:36 Neut % (Auto) 80.9 % 07/20/24 11:20 Lymph % (Auto) 11.1 % 07/20/24 11:20 Frio % (Auto) 7.1 % 07/20/24 11:20 Eos % (Auto) 0.3 % 07/20/24 11:20 Baso % (Auto) 0.2 % 07/20/24 11:20 Neut # (Auto) 7.73 10^3/uL (1.8-7.7) H 07/20/24 11:20 Lymph # (Auto) 1.1 10^3/uL (0.8-4.8) 07/20/24 11:20 Frio # (Auto) 0.7 10^3/uL (0.2-0.9) 07/20/24 11:20 Eos # (Auto) 0.0 10^3/uL (0.0-0.8) 07/20/24 11:20 Baso # (Auto) 0.0 10^3/uL (0.0-0.1) 07/20/24 11:20 Absolute Gran (auto) Cancelled 07/06/24 04:36 Nucleated RBC % (auto) 0 % 07/20/24 11:20 Nucleated RBCs # 0.0 /100WBC 07/20/24 11:20 Specimen Type Arterial 07/02/24 15:58 Sample Site Radial, right 07/02/24 15:58 ABG pH 7.43 (7.35-7.45) 07/02/24 15:58 ABG pCO2 37.2 mmHg (35-45) 07/02/24 15:58 ABG pO2 88.3 mmHg (80.0-100.0) 07/02/24 15:58 ABG PO2/FiO2 Ratio 420 07/02/24 15:58 ABG HCO3 24.6 mmol/L (22-26) 07/02/24 15:58 ABG O2 Saturation 97.5 07/02/24 15:58 ABG Base Excess 0.4 mmol/L (-2.0-2.0) 07/02/24 15:58 Mckinley Test Pos 07/02/24 15:58 A-a O2 Gradient 1.9 mmHg (5-10) L 07/02/24 15:58 Hematocrit 37.6 % (42-52) L 07/02/24 15:58 Hgb O2 Saturation 95.6 % (95-100) 07/02/24 15:58 Carboxyhemoglobin 1.0 %THgb (0.4-20.1) 07/02/24 15:58 Methemoglobin 0.9 % (0.4-1.5) 07/02/24 15:58 Total Hemoglobin 12.3 g/dL (14-18) L 07/02/24 15:58 Sodium 132.0 mmol/L (131-143) 07/02/24 15:58 Potassium 4.2 mmol/L (3.5-5.0) 07/02/24 15:58 Glucose 113.0 mg/dL (70-115) 07/02/24 15:58 Ionized Calcium 1.2 mmol/L (1.1-1.4) 07/02/24 15:58 O2 Delivery Device Room air 07/02/24 15:58 FiO2 21.0 % 07/02/24 15:58 Processing Operator ID Saul 07/02/24 15:58 Sodium 144 mmol/L (136-145) 07/20/24 11:20 Potassium 4.2 mmol/L (3.5-5.1) 07/20/24 11:20 Chloride 110 mmol/L (98-107) H 07/20/24 11:20 Carbon Dioxide 24 mmol/L (22-29) 07/20/24 11:20 Anion Gap 14.2 (5-19) 07/20/24 11:20 BUN 64 mg/dL (8-23) H 07/20/24 11:20 Creatinine 1.5 mg/dL (0.7-1.2) H 07/20/24 11:20 GFR Calculation Not Reportable 07/20/24 11:20 Glucose 118 mg/dL (65-115) H 07/20/24 11:20 Calculated Osmolality 317 mOsm/kg (285-295) H 07/20/24 11:20 Lactic Acid 1.0 mmol/L (0.5-2.2) 07/02/24 16:11 Calcium 9.1 mg/dL (8.5-10.5) 07/20/24 11:20 Phosphorus 3.4 mg/dL (2.5-4.5) 07/19/24 08:42 Magnesium 2.7 mg/dL (1.7-2.3) H 07/20/24 11:20 Total Bilirubin 0.7 mg/dL (0.15-1.2) 07/20/24 11:20 Direct Bilirubin 0.20 mg/dL (0.00-0.30) 07/18/24 09:32 AST 81 U/L (0-40) H 07/20/24 11:20 ALT 38 U/L (0-41) 07/20/24 11:20 Alkaline Phosphatase 57 U/L (40-130) 07/20/24 11:20 Ammonia 30 umol/L (16-60) 07/14/24 21:20 Troponin T Baseline 47 ng/L (0-15) H 07/02/24 16:11 Troponin T 120 Minute 44.29 ng/L (0-15) H 07/02/24 18:12 Delta Troponin T -2.71 ABS# (0-10) L 07/02/24 18:12 C-Reactive Protein 144.1 mg/L (0.0-4.9) H 07/14/24 21:20 Total Protein 5.6 g/dL (6.6-8.7) L 07/20/24 11:20 Albumin 2.4 g/dL (3.5-5.2) L 07/20/24 11:20 Globulin 3.2 g/dL (1.3-4.6) 07/20/24 11:20 Vitamin B12 662 pg/mL (232-1245) 07/14/24 21:20 TSH 4.26 uIU/mL (0.27-4.20) H 07/14/24 21:20 PTH Intact 25.6 pg/mL (15-65) 07/18/24 09:32 Calcium (PTH Intact) 10.3 mg/dL (8.5-10.5) 07/18/24 09:32 Urine Color Yellow (Yellow) 07/09/24 05:50 Urine Appearance Clear (CLEAR) 07/09/24 05:50 Urine pH 6.5 (5-7) 07/09/24 05:50 Ur Specific [place] 1.006 (1.005-1.030) 07/09/24 05:50 Urine Protein Negative (Negative) 07/09/24 05:50 Urine Glucose (UA) Negative (Normal) 07/09/24 05:50 Urine Ketones Negative (Negative) 07/09/24 05:50 Urine Blood Negative (Negative) 07/09/24 05:50 Urine Nitrate Negative (Negative) 07/09/24 05:50 Urine Bilirubin Negative (Negative) 07/09/24 05:50 Urine Urobilinogen 0.2 mg/dL (Negative) 07/09/24 05:50 Ur Leukocyte Esterase 1+ (Negative) A 07/09/24 05:50 Urine RBC 0-2 /hpf (0-2) 07/09/24 05:50 Urine WBC 0-5 /hpf (0-5) 07/09/24 05:50 Ur Squamous Epith Cells 0-5 /hpf (0-5) 07/09/24 05:50 Amorphous Sediment Not Reportable 07/09/24 05:50 Urine Bacteria None seen /hpf (NONE) 07/09/24 05:50 Hyaline Casts 0.81 /lpf 07/09/24 05:50 Vitals Last Vital Signs Temp 98.0 F 07/20/24 07:32 Pulse 80 07/20/24 07:32 Resp 16 07/20/24 15:42 BP 111/62 07/20/24 07:32 Pulse Ox 96 07/20/24 07:32 O2 Del Method Room Air 07/20/24 07:32 Discharge Plan Discharge Patient Disposition: Hospice - Medical Facility Condition: Stable Prescriptions: New Linzess 290 mcg capsule 290 mcg PO DAILY Qty: 30 0RF Discontinued olanzapine 2.5 mg tablet 2.5 mg PO DAILY tamsulosin 0.4 mg capsule 0.4 mg PO DAILY albuterol sulfate 90 mcg/actuation HFA aerosol inhaler 90 mcg INHALATION DAILY Linzess 290 mcg capsule 290 mcg PO DAILY aspirin [Neyda Low Dose Aspirin] 81 mg Tablet,Delayed Release (Dr/Ec) 81 mg PO DAILY diphenhydramine HCl [Benadryl Allergy] 25 mg Tablet 25 mg PO TID PRN (Reason: sleep ) levofloxacin 500 mg tablet 500 mg PO DAILY timolol maleate 0.5 % drops 1 drp ophthalmic (eye) DAILY melatonin 3 mg Tablet 3 mg PO DAILY finasteride 5 mg tablet 5 mg PO DAILY Discharge Orders: Discharge Order (Routine); Ordered 07/21/24 Ordered By: Melodie Fish Discharge Diet: Regular and Soft Mechanical Patient Instructions: Hospice Care (GEN), Altered Mental Status (ED) Activity Restrictions/Additional Instructions: Hospice at skilled nursing. Discharge Attestations Time Spent in Discharge Care*: less than 30 min Quality Metrics Clinical Quality Measures [ No reported AMI, CVA or VTE this stay] Coding Level of Care Code Acute Code for Chg Fwd Diagnoses Failure to thrive Fall W19.XXXA Rigidity R29.898 UTI (urinary tract infection) N39.0 Acute urinary retention R33.8 Renal insufficiency N28.9
== END 2024-07-21 13:55 | disposition hospice, inpatient (51) ==
LOC: ER 15:58 → MEDSURG 20:04 → ICU 07-06 20:37 → MEDSURG 07-09 14:19
PROVIDERS: Internal Medicine; Admitting Provider Internal Medicine; Emergency Provider Emergency Medicine; Visit Provider Internal Medicine
DX: R62.7 Adult failure to thrive (principal); Z91.81 History of falling; R29.898 Other symptoms and signs involving the musculoskeletal system; N39.0 Urinary tract infection, site not specified; R33.8 Other retention of urine; N28.9 Disorder of kidney and ureter, unspecified; Z75.1 Person awaiting admission to adequate facility elsewhere; R45.1 Restlessness and agitation; R41.0 Disorientation, unspecified; N40.1 Benign prostatic hyperplasia with lower urinary tract symptoms; R33.9 Retention of urine, unspecified; Z79.82 Long term (current) use of aspirin; Z85.00 Personal history of malignant neoplasm of unspecified digestive organ; Z66 Do not resuscitate; Z81.8 Family history of other mental and behavioral disorders; F03.90 Unspecified dementia, unspecified severity, without behavioral disturbance, psychotic disturbance, mood disturbance, and anxiety
CPT/HCPCS: 36415; 36600; 51702; 70450; 70551; 71045; 72126; 73030; 73060; 73090; 80048; 80051; 80053; 80076; 81001; 82140; 82310; 82330; 82607; 82805; 83605; 83735; 83970; 84100; 84443; 84484; 85025; 86140; 87040; 87077; 87086; 87186; 93005; 96361; 96365; 96366; 96367; 96372; 96375; 96376; 97110; 97116; 97161; 97165; 97530; 97535; 99285; G0378; J0696; J1200; J1630; J1644; J1956; J2020; J2060; J2270; J3486; J3490; J7030; J7799